=== PATIENT | male | born 1955 | race Caucasian/White ===

== ENCOUNTER 2019-09-02 19:34 | Emergency (ER) | payer OTHER, SELFPAY ==
[2019-09-02 19:48] VITALS: BP 116/62; PULSE 106; RESP 18; TEMP 36.6; O2SAT 97; BMI 26.4
--- NOTE | 2019-09-02 19:48 | ED_ITS ---
Entered by Nazanin Reyes, acting as scribe for Daniel Ramírez MD, [facility] [place] - Neuro Symptoms/Deficit General: Chief Complaint: Neuro Symptoms/Deficit Stated Complaint: possible tia Time Seen by Provider: 09/02/19 19:36 Source: EMS Mode of arrival: EMS History of Present Illness: HPI Narrative: 63 yo Male presents to ED with complaint of neuro symptoms. Per EMS, patient was found down in the floor this morning by his son. Pt has a history of TIAs. Per EMS, patient had symptoms come and go throughout the day. Per EMS, family reported that the patient seemed to get worse tonight and has been more lethargic. Pt's son states that when he tried to get the patient out of the floor this morning at 1100 the patient had lower extremity weakness and couldn't help get himself out of the floor. Pt's son states that the patient uses a walker to get around some of the time. Pt states that he is at [facility] and he doesn't know what day of the week it is. Pt's son states that the patient's legs are usually dark due to blood clots but the patient's legs aren't normally cold and they are now. Onset (ago): hour(s) Time: 11:00 Timing confirmed by: family member Location: altered History of same: Yes Quality: weak Relieving factors: none Exacerbating factors: none Context: gradual onset Associated symptoms: Reports chest pain and vomiting; Deny fevers/chills, headache(s) or nausea Treatments Prior to Arrival: none Review of Systems General: Reports: 10 or more systems reviewed and unremarkable except in HPI and below Const: Denies: fever, chills or body aches Eyes: Denies: change in vision or blurry vision ENMT: Denies: throat pain, enlarged tonsils, painful swallowing, hoarseness, mouth pain or swelling of lips/tongue Card: Reports: chest pain; Denies: palpitations, irregular heart rhythm, edema or swelling of feet/ankles Resp: Denies: shortness of breath, productive cough or non-productive cough GI: Reports: vomiting; Denies: abdominal pain or nausea : Denies: flank pain, painful urination, urinary frequency, urinary urgency or urinary hesitancy Musc: Denies: neck pain, back pain or extremity swelling Skin/Breast: Denies: rash, itching or redness Neuro: Reports: weakness in extremities, difficulty walking and frequent falls; Denies: headache or numbness in extremities Endo: Denies: excessive urination, excessive thirst or tired all the time PFSH ED PFSH: Social History Smoking and tobacco status: former smoker Physical Exam Const: COMMON NORMALS: no apparent distress, average body habitus, oriented x3, no limitations, healthy appearing, alert and well nourished HENMT: COMMON NORMALS: normocephalic, head/scalp atraumatic and moist oral mucous membranes HEAD & SCALP: normocephalic and atraumatic Eye: COMMON NORMALS: PERRL, EOMs intact bilaterally, conjunctivae normal and no scleral icterus CONJUNCTIVA: Yes conjunctivae normal PUPIL: Yes PERRL Neck/C-Spine: COMMON NORMALS: full ROM, supple, no meningeal signs, no JVD and no carotid bruits Chest: COMMONS NORMALS: inspection of chest normal and palpation of chest normal Resp: COMMON NORMALS: normal respiratory effort, no retractions, no use of accessory muscles, clear to auscultation bilaterally and percussion normal AUSCULTATION: clear to auscultation bilaterally PERCUSSION: percussion normal Cardio: COMMON NORMALS: no JVD, regular rate, regular rhythm, S1 normal heart sound, S2 normal heart sound, no gallops, no clicks, no murmurs, no rub and peripheral pulses 2+ throughout RATE: regular rate RHYTHM: regular rhythm HEART SOUNDS: S1 normal and S2 normal PERIPHERAL PULSES: pulses 2+ throughout GI: COMMON NORMALS: normal to inspection, nondistended, normoactive bowel sounds, soft to palpation, non-tender, no hepatosplenomegaly, no masses and no bruits PALPATION: Yes soft, Yes tender and Yes no hepatosplenomegaly : COMMON NORMALS: Yes no CVA tenderness BLADDER/KIDNEY EXAM: Yes no CVA tenderness Back/Pelvis: COMMON NORMALS: no CVA tenderness Extremity: COMMON NORMALS: normal to inspection, full ROM, normal capillary refill, no calf tenderness and no pedal edema Neuro: COMMON NORMALS: oriented x3 and moves all extremities SENSORIUM/ORIENTATION: Yes alert and Yes somnolent MENINGEAL SIGNS: Yes no meningeal signs Skin: COMMON NORMALS: no rashes or lesions noted, no wounds, skin turgor normal, no jaundice, no petechiae and no mottling GENERAL SKIN EXAM: no rashes or lesions noted and turgor normal Course Consultations: Consultation #1: Dr. Moulton, hospitalist at [facility] in [place]. Since she cannot explain the cause of his AMS, if his ammonia level is normal she would like for him to be transferred to the ED. If it is elevated, then she will accept him Time: 23:15 Consultation #2: Dr. Mariee, ED physician at [facility] in [place]. He kindly accepted the patient to his service. Time: 23:59 Vital Signs: Vital signs: Vital Signs Temperature 98 F 09/02/19 19:48 Pulse Rate 67 09/02/19 23:00 Respiratory Rate 14 09/02/19 23:00 Blood Pressure 149/74 09/02/19 23:00 Pulse Oximetry 97 09/02/19 23:00 MDM - Neuro Symptoms/Deficit MDM Narrative: Medical decision making narrative: 63-year-old gentleman who was brought into the emergency department with altered mental status. On arrival the patient was somnolent but was able to answer most of the questions. He was not oriented to place or time. Evaluation did not reveal any focal neuro deficits. Head CT was negative. Evaluation shows UTI, significantly elevated bilirubin, and elevated liver enzymes. Ammonia levels were normal. Ultrasound showed gallstones and a dilated common bile duct. Patient may need an ERCP. Patient is transferred to [facility] in [place] for further evaluation and management. I discussed his exam findings and lab and imaging findings with his son and the treatment options. Patient's son opted to transfer the patient to [facility] in [place]. Medical Records: Attestation: I reviewed the patient's medical records. Lab Data: Attestation: I reviewed the patient's lab results. Labs: Lab Results 09/02/19 09/02/19 09/02/19 Range/Units 20:22 20:22 20:22 WBC 10.3 H (4.0-10.0) 10^3/ uL RBC 4.87 (4.1-5.3) 10^6/u L Hgb 13.2 (11.7-16.6) g/dL Hct 42.7 (42.0-52.0) % MCV 87.7 (80-94) fL MCH 27.1 L (28.0-34.0) pg MCHC 30.9 (30.0-36.0) g/dL RDW 15.6 H (12.1-15.1) % Plt Count 78 L (130-400) 10^3/c mm MPV 10.9 H (7.4-10.4) fL Neut % (Auto) 86.4 % Lymph % (Auto) 6.0 % [place] % (Auto) 6.8 % Eos % (Auto) 0.0 % Baso % (Auto) 0.3 % Neut # (Auto) 8.9 H (1.8-7.7) 10^3/u L Lymph # (Auto) 0.6 L (0.8-4.8) 10^3/u L [place] # (Auto) 0.7 (0.2-0.9) 10^3/u L Eos # (Auto) 0.0 (0.0-0.8) 10^3/u L Baso # (Auto) 0.0 (0.0-0.1) 10^3/u L Nucleated RBC % (a uto) 0 % Nucleated RBCs # 0.0 /100WBC PT 17.00 H (10.5-13.3) SECO NDS INR 1.33 H (0.8-1.2) APTT 74.3 H (23.9-36.7) SECO NDS Sodium 140 (136-145) mmol/L Potassium 4.6 (3.5-5.1) mmol/L Chloride 103 (98-107) mmol/L Carbon Dioxide 24 (22-29) mmol/L Anion Gap 17.6 (5-19) BUN 36 H (8-23) mg/dL Creatinine 1.6 H (0.7-1.2) mg/dL GFR Calculation 43.9 L (90-130) mL/min Glucose 107 (65-115) mg/dL Lactate (0.5-2.2) mmol/L Calcium 10.1 (8.5-10.5) mg/dL Total Bilirubin 5.2 H (0.15-1.2) mg/dL AST 369 H (0-40) U/L ALT 423 H (0-41) U/L Alkaline Phosphata se 181 H (40-130) IU/L Ammonia (16-60) umol/L Troponin T Baselin e (0-15) ng/mL Troponin T 120 Min [place] (0-15) ng/mL Delta Troponin T (0-10) ABS# Total Protein 7.8 (6.6-8.7) g/dL Albumin 4.1 (3.5-5.2) g/dL Globulin 3.7 (1.3-4.6) g/dL Urine Color (Yellow) Urine Appearance (CLEAR) Urine pH (5-7) Ur Specific Gravit y (1.005-1.030) Urine Protein (Negative) Urine Glucose (UA) (Normal) Urine Ketones (Negative) Urine Blood (Negative) Urine Nitrate (Negative) Urine Bilirubin (NEGATIVE) Urine Urobilinogen (Negative) mg/dL Ur Leukocyte Maur[place] ase (Negative) Urine RBC (0-2) /hpf Urine WBC (0-5) /hpf Ur Squamous Epith Cells (0-5) Ur Transition Epit h Cell /hpf Urine Bacteria (NONE) Urine Mucus Urine Opiates Scre en (Negative) ng/mL Ur Barbiturates Sc reen (Negative) ng/mL Ur Phencyclidine S crn (Negative) ng/mL Ur Amphetamines Sc reen (Negative) ng/mL U Benzodiazepines Scrn (Negative) ng/mL Urine Cocaine Scre en (Negative) ng/mL U Marijuana (THC) Screen (Negative) ng/mL 09/02/19 09/02/19 09/02/19 Range/Units 20:22 20:22 21:40 WBC (4.0-10.0) 10^3/ uL RBC (4.1-5.3) 10^6/u L Hgb (11.7-16.6) g/dL Hct (42.0-52.0) % MCV (80-94) fL MCH (28.0-34.0) pg MCHC (30.0-36.0) g/dL RDW (12.1-15.1) % Plt Count (130-400) 10^3/c mm MPV (7.4-10.4) fL Neut % (Auto) % Lymph % (Auto) % [place] % (Auto) % Eos % (Auto) % Baso % (Auto) % Neut # (Auto) (1.8-7.7) 10^3/u L Lymph # (Auto) (0.8-4.8) 10^3/u L [place] # (Auto) (0.2-0.9) 10^3/u L Eos # (Auto) (0.0-0.8) 10^3/u L Baso # (Auto) (0.0-0.1) 10^3/u L Nucleated RBC % (a uto) % Nucleated RBCs # /100WBC PT (10.5-13.3) SECO NDS INR (0.8-1.2) APTT (23.9-36.7) SECO NDS Sodium (136-145) mmol/L Potassium (3.5-5.1) mmol/L Chloride (98-107) mmol/L Carbon Dioxide (22-29) mmol/L Anion Gap (5-19) BUN (8-23) mg/dL Creatinine (0.7-1.2) mg/dL GFR Calculation (90-130) mL/min Glucose (65-115) mg/dL Lactate 1.3 (0.5-2.2) mmol/L Calcium (8.5-10.5) mg/dL Total Bilirubin (0.15-1.2) mg/dL AST (0-40) U/L ALT (0-41) U/L Alkaline Phosphata se (40-130) IU/L Ammonia (16-60) umol/L Troponin T Baselin e 39 H (0-15) ng/mL Troponin T 120 Min [place] (0-15) ng/mL Delta Troponin T (0-10) ABS# Total Protein (6.6-8.7) g/dL Albumin (3.5-5.2) g/dL Globulin (1.3-4.6) g/dL Urine Color Dark yellow (Yellow) Urine Appearance Clear (CLEAR) Urine pH 5 (5-7) Ur Specific Gravit y 1.020 (1.005-1.030) Urine Protein Neg (Negative) Urine Glucose (UA) Norm (Normal) Urine Ketones Negative (Negative) Urine Blood 2+ H (Negative) Urine Nitrate Positive H (Negative) Urine Bilirubin 2+ H (NEGATIVE) Urine Urobilinogen 4 H (Negative) mg/dL Ur Leukocyte [place] Negative (Negative) Urine RBC 10-15 H (0-2) /hpf Urine WBC 0-4 H (0-5) /hpf Ur Squamous Epith Cells None (0-5) Ur Transition Epit h Cell 0-4 /hpf Urine Bacteria 1+ H (NONE) Urine Mucus 1+ Urine Opiates Scre en (Negative) ng/mL Ur Barbiturates Sc reen (Negative) ng/mL Ur Phencyclidine S crn (Negative) ng/mL Ur Amphetamines Sc reen (Negative) ng/mL U Benzodiazepines Scrn (Negative) ng/mL Urine Cocaine Scre en (Negative) ng/mL U Marijuana (THC) Screen (Negative) ng/mL 09/02/19 09/02/19 09/02/19 Range/Units 21:40 22:09 23:15 WBC (4.0-10.0) 10^3/ uL RBC (4.1-5.3) 10^6/u L Hgb (11.7-16.6) g/dL Hct (42.0-52.0) % MCV (80-94) fL MCH (28.0-34.0) pg MCHC (30.0-36.0) g/dL RDW (12.1-15.1) % Plt Count (130-400) 10^3/c mm MPV (7.4-10.4) fL Neut % (Auto) % Lymph % (Auto) % [place] % (Auto) % Eos % (Auto) % Baso % (Auto) % Neut # (Auto) (1.8-7.7) 10^3/u L Lymph # (Auto) (0.8-4.8) 10^3/u L [place] # (Auto) (0.2-0.9) 10^3/u L Eos # (Auto) (0.0-0.8) 10^3/u L Baso # (Auto) (0.0-0.1) 10^3/u L Nucleated RBC % (a uto) % Nucleated RBCs # /100WBC PT (10.5-13.3) SECO NDS INR (0.8-1.2) APTT (23.9-36.7) SECO NDS Sodium (136-145) mmol/L Potassium (3.5-5.1) mmol/L Chloride (98-107) mmol/L Carbon Dioxide (22-29) mmol/L Anion Gap (5-19) BUN (8-23) mg/dL Creatinine (0.7-1.2) mg/dL GFR Calculation (90-130) mL/min Glucose (65-115) mg/dL Lactate (0.5-2.2) mmol/L Calcium (8.5-10.5) mg/dL Total Bilirubin (0.15-1.2) mg/dL AST (0-40) U/L ALT (0-41) U/L Alkaline Phosphata se (40-130) IU/L Ammonia 26 (16-60) umol/L Troponin T Baselin e (0-15) ng/mL Troponin T 120 Min [place] 41.36 H (0-15) ng/mL Delta Troponin T 2.36 (0-10) ABS# Total Protein (6.6-8.7) g/dL Albumin (3.5-5.2) g/dL Globulin (1.3-4.6) g/dL Urine Color (Yellow) Urine Appearance (CLEAR) Urine pH (5-7) Ur Specific Gravit y (1.005-1.030) Urine Protein (Negative) Urine Glucose (UA) (Normal) Urine Ketones (Negative) Urine Blood (Negative) Urine Nitrate (Negative) Urine Bilirubin (NEGATIVE) Urine Urobilinogen (Negative) mg/dL Ur Leukocyte Maura ase (Negative) Urine RBC (0-2) /hpf Urine WBC (0-5) /hpf Ur Squamous Epith Cells (0-5) Ur Transition Epit h Cell /hpf Urine Bacteria (NONE) Urine Mucus Urine Opiates Scre en Negative (Negative) ng/mL Ur Barbiturates Sc reen Negative (Negative) ng/mL Ur Phencyclidine S crn Negative (Negative) ng/mL Ur Amphetamines Sc reen Negative (Negative) ng/mL U Benzodiazepines Scrn Negative (Negative) ng/mL Urine Cocaine Scre en Negative (Negative) ng/mL U Marijuana (THC) Screen Negative (Negative) ng/mL Imaging Data^: CT Head: Radiologist's impression: [address] [address] [address] Scan Report Signed Patient: Felton Burton #: [id number] : 6Acct#:[id number] Age/Sex: 63 / MADM Date: 09/02/19 Loc: ERRoom/Bed: Attending Dr: Ordering Provider/Ordering MD: Daniel Ramírez MD, [facility] [place] of Service: 09/02/19 Procedure(s): CT head wo con* [id number] Accession Number(s): [id number] Report Number: [id number] PROCEDURE INFORMATION: Exam: CT Head Without Contrast Exam date and time: 09/02/2019 8:28 PM Age: 63 years old Clinical indication: Weakness, extremity; Additional info: Symptoms of acute stroke TECHNIQUE: Imaging protocol: Computed tomography of the head without contrast. Total DLP: 879.75 mGy-cm Radiation optimization: All CT scans at this facility use at least one of these dose optimization techniques: automated exposure control; mA and/or kV adjustment per patient size (includes targeted exams where dose is matched to clinical indication); or iterative reconstruction. COMPARISON: CT head wo con* [id number] 09/01/2018 5:19 PM FINDINGS: Brain: Several small chronic infarctions are present in the cerebellum bilaterally. Mild atrophy and mild white matter chronic microvascular changes are noted. No hemorrhage or CT evidence of acute infarction is seen. Ventricles: Normal. No ventriculomegaly. Bones/joints: Unremarkable. No acute fracture. Sinuses: Mild mucosal thickening is present in the right sphenoid sinus. No fluid level. Mastoid air cells: Visualized mastoid air cells are well aerated. Soft tissues: Unremarkable. CT/CT head wo con* [id number] IMPRESSION: No acute intracranial abnormality. Radiation Dose CTDIVOL = (mGy): DLP = 879.75 (mGy-cm) Dictated By:Amos Enciso MD Signed By:Amos Enciso MDSigned Date/Time:09/02/192147 DD/ 46 EKG Data^: EKG 1: Attestation: I personally reviewed and interpreted this EKG as follows: EKG interpretation date: 09/02/19 EKG interpretation time: 20:45 Prior EKG tracings: not available for review Interpretation: sinus rhythm with first degree AV block LAD, RBBB heart rate [address] changes EKG 2: Attestation: I personally reviewed and interpreted this EKG as follows: EKG interpretation date: 09/02/19 EKG interpretation time: 22:17 Prior EKG tracings: available for review Interpretation: Unchanged from earlier today. 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
--- NOTE | 2019-09-02 20:00 | USCV_ITS ---
Micheal Felton Age: 63 Gender: M : 1955 Exam Date: 09/02/2019 20:48 Ordering Phys: Daniel Ramírez MD [facility] [place] Technologist: Donovan Rhoades Exam Location: [facility] [place] Indication: Risk Factors: Previous Vascular Surgery: RIGHT LEFT Waveform Velocity (cm/s) Velocity (cm/s) Waveform Triphasic 87.8 Iliac Prox 54.9 Monophasic Triphasic 87.0 Iliac Mid 51.5 Monophasic Triphasic 83.9 Iliac Distal 54.0 Monophasic Triphasic 87.8 AEROGRAPHER 51.5 Monophasic Triphasic 91.7 SFA Prox 54.9 Monophasic Triphasic SFA Mid Monophasic 77.7 62.6 Triphasic 57.8 SFA Dist 48.9 Monophasic Biphasic 27.6 POP 35.2 Monophasic Biphasic 41.4 RAILROAD CRANE OPERATOR 18.4 Monophasic Biphasic DPA 9.7 Monophasic 1.0 RAJEEV 0.5 FINDINGS Normal resting RAJEEV on the right side with a near normal arterial Doppler waveform. Abnormal resting RAJEEV on the left side with monophasic Doppler waveforms throughout. CONCLUSIONS 1. Features of severe peripheral artery disease, possibly involving the iliofemoral segment on the left side 2. Normal resting RAJEEV on the right side with possibly no significant arterial disease. Dr Dennis Carbajal MD [facility] (Electronically Signed) Final Date: 03 September 2019 11:25 S
--- NOTE | 2019-09-02 20:00 | ECG_ITS ---
Measurements Intervals [place] Rate: 67 P: 14 MT: 219 QRS: -61 QRSD: 133 T: -23 QT: 393 QTc: 418 SINUS RHYTHM WITH FIRST DEGREE AV BLOCK LEFT AXIS DEVIATION [QRS AXIS < -30] RIGHT BUNDLE BRANCH BLOCK [120+ ms QRS DURATION, UPRIGHT V1, 40+ ms S IN I/a I/aVL/V4/V5/V6] MODERATE T-WAVE ABNORMALITY, CONSIDER LATERAL ISCHEMIA [-0.1+ mV T WAVE IN I/ I/aVL/V5/V6] Compared to ECG 09/03/2018 06:05:37 Right bundle-branch block now present T-wave abnormality now present Possible ischemia now present Sinus bradycardia no longer present Intraventricular conduction delay no longer present Electronically Signed On 09-03-2019 14:12:11 BAR STEWARD by Chip Ni M.D. [email or web address]
--- NOTE | 2019-09-02 20:00 | CTR_ITS ---
PROCEDURE INFORMATION: Exam: CT Head Without Contrast Exam date and time: 09/02/2019 8:28 PM Age: 63 years old Clinical indication: Weakness, extremity; Additional info: Symptoms of acute stroke TECHNIQUE: Imaging protocol: Computed tomography of the head without contrast. Total DLP: 879.75 mGy-cm Radiation optimization: All CT scans at this facility use at least one of these dose optimization techniques: automated exposure control; mA and/or kV adjustment per patient size (includes targeted exams where dose is matched to clinical indication); or iterative reconstruction. COMPARISON: CT head wo con* [id number] 09/01/2018 5:19 PM FINDINGS: Brain: Several small chronic infarctions are present in the cerebellum bilaterally. Mild atrophy and mild white matter chronic microvascular changes are noted. No hemorrhage or CT evidence of acute infarction is seen. Ventricles: Normal. No ventriculomegaly. Bones/joints: Unremarkable. No acute fracture. Sinuses: Mild mucosal thickening is present in the right sphenoid sinus. No fluid level. Mastoid air cells: Visualized mastoid air cells are well aerated. Soft tissues: Unremarkable. CT/CT head wo con* [id number] IMPRESSION: No acute intracranial abnormality. Radiation Dose CTDIVOL = (mGy): DLP = 879.75 (mGy-cm)
[2019-09-02 20:35] LABS: Basophils % 0.3 %; Hematocrit 42.7 % (42.0-52.0); Hemoglobin 13.2 g/dL (11.7-16.6); Lymphocytes # 0.6 10^3/uL (0.8-4.8); Mean Corpuscular HGB Conc 30.9 g/dL (30.0-36.0); Mean Corpuscular Hemoglobin 27.1 pg (28.0-34.0); Mean Corpuscular Volume 87.7 fL (80-94); Mean Platelet Volume 10.9 fL (7.4-10.4); Monocytes # 0.7 10^3/uL (0.2-0.9); Monocytes % 6.8 %; Neutrophils # 8.9 10^3/uL (1.8-7.7); Neutrophils % 86.4 %; Nucleated Red Blood Cells % 0 %; Platelet Count 78 10^3/cmm (130-400); Red Blood Count 4.87 10^6/uL (4.1-5.3); Red Cell Distribution Width 15.6 % (12.1-15.1); White Blood Count 10.3 10^3/uL (4.0-10.0)
[2019-09-02 20:51] LABS: Lactate (Lactic Acid level) 1.3 mmol/L (0.5-2.2)
[2019-09-02 20:52] LABS: INR 1.33 (0.8-1.2)
[2019-09-02 20:53] LABS: Troponin(5th) Baseline 39 ng/mL (0-15)
[2019-09-02 20:54] LABS: Alanine Aminotransferase 423 U/L (0-41); Albumin Level 4.1 g/dL (3.5-5.2); Alkaline Phosphatase 181 IU/L (40-130); Anion Gap 17.6 (5-19); Aspartate Amino Transferase 369 U/L (0-40); Blood Urea Nitrogen 36 mg/dL (8-23); Calcium 10.1 mg/dL (8.5-10.5); Carbon Dioxide 24 mmol/L (22-29); Chloride 103 mmol/L (98-107); Globulin 3.7 g/dL (1.3-4.6); Glomerular Filtration Rate 43.9 mL/min (90-130); Glucose 107 mg/dL (65-115); Potassium 4.6 mmol/L (3.5-5.1); Sodium 140 mmol/L (136-145); Total Bilirubin 5.2 mg/dL (0.15-1.2); Total Protein 7.8 g/dL (6.6-8.7)
[2019-09-02 20:59] LABS: Partial Thromboplastin Time 74.3 SECONDS (23.9-36.7)
[2019-09-02 21:04] VITALS: BP 160/75; PULSE 83; O2SAT 97
--- NOTE | 2019-09-02 21:27 | US_ITS ---
WS: [id number] ABDOMINAL ULTRASOUND LIMITED REASON FOR VISIT: elevated liver enzyme TECHNIQUE: Grayscale and Doppler ultrasound examination of the abdomen. FINDINGS: Pancreas: Not well seen due to overriding gas. Abdominal aorta and IVC: Within normal limits. Liver: Liver measures 13.4 cm in length. Diffuse fatty infiltration of the liver. Gallbladder: Gallbladder wall thickness measures 1.7 mm. A large stone is seen in the gallbladder holly sured 1.2 cm. Smaller stones are also noted. The common bile duct is dilated 1.04 cm. No definite sto darrius in the were noted. Right kidney: Right kidney measures 10.4 cm x 5.5 cm x 4.8 cm. Right kidney cortex measures 1.39 cm no hydronephrosis no stones noted in the kidney. The cyst measures 3.06 x 3.11 cm noted in the right kidney. US/US gall bladder [id number] IMPRESSION: Fatty infiltration of the liver. Cholelithiasis. Dilated common bile duct. Cyst of the right kidney
[2019-09-02 21:59] LABS: Urine Appearance Clear (CLEAR); Urine Color Dark Yellow (Yellow)
[2019-09-02 22:00] LABS: Add Urine Microscopic? YES; Bilirubin Urine 2+ (NEGATIVE); Blood Urine 2+ (Negative); Glucose Urine UA Norm (Normal); Ketones Urine Negative (Negative); Leukocyte Esterase Urine Negative (Negative); Nitrate Urine Positive (Negative); Protein Urine Neg (Negative); Urobilinogen Urine 4 mg/dL (Negative); pH Urine 5 (5-7)
[2019-09-02 22:01] LABS: Amphetamines Screen Urine Negative (Negative); Barbiturates Screen Urine Negative (Negative); Benzodiazepines Screen Urine Negative (Negative); Cocaine Screen Urine Negative (Negative); Opiate Screen Urine Negative (Negative); PCP Screen Urine Negative (Negative); THC Screen Urine Negative (Negative)
--- NOTE | 2019-09-02 22:02 | ECG_ITS ---
Measurements Intervals [place] Rate: 65 P: 4 ID: 210 QRS: -63 QRSD: 133 T: -26 QT: 403 QTc: 421 SINUS RHYTHM WITH FIRST DEGREE AV BLOCK MARKED LEFT AXIS DEVIATION [QRS AXIS < -30] RIGHT BUNDLE BRANCH BLOCK [120+ ms QRS DURATION, UPRIGHT V1, 40+ ms S IN I/aVL/V4 I/aVL/V4/V5/V6] MODERATE T-WAVE ABNORMALITY, CONSIDER LATERAL ISCHEMIA [-0.1+ mV T WAVE IN I/aVL/V I/aVL/V5/V6] Compared to ECG 09/03/2018 06:05:37 Right bundle-branch block now present T-wave abnormality now present Possible ischemia now present Sinus bradycardia no longer present Intraventricular conduction delay no longer present Electronically Signed On 09-03-2019 14:14:53 BEARING PRESS MACHINE OPERATOR by Chip Ni M.D. [email or web address]
[2019-09-02 22:05] LABS: Add Urine Culture? Yes; Bacteria Urine 1+; Mucus Urine 1+; Transitional Epi Cells Urine 0-4 /hpf; WBC Urine 0-4 /hpf (0-5)
--- NOTE | 2019-09-02 22:21 | PC.NURSE ---
EKG done at 2216 and shown to ER doctor
[2019-09-02] MEDS: piperacillin-tazobactam 3.375 GM in sodium chloride 0.9% (plus) 50 ML IV (22:58)
[2019-09-02 23:00] VITALS: BP 149/74; PULSE 65; PULSE 67; RESP 14; RESP 16; O2SAT 97
[2019-09-02 23:22] LABS: Troponin 5 2HR 41.36 ng/mL (0-15); Troponin 5 2HR Delta 2.36 ABS# (0-10)
[2019-09-02 23:52] LABS: Ammonia 26 umol/L (16-60)
[2019-09-03] VITALS: BP 124/73; PULSE 67; RESP 18; O2SAT 96
[2019-09-03 01:00] VITALS: BP 132/67; PULSE 68; RESP 18; O2SAT 97
[2019-09-03 02:00] VITALS: BP 119/73; PULSE 68; RESP 18; O2SAT 96
[2019-09-03 03:37] LABS: Hepatitis A Antibody IgM. Non-Reactive (Nonreactive); Hepatitis B Surface AB. 3.5 (0-8.5); Hepatitis B Surface Antigen. Non-Reactive (Nonreactive); Hepatitis C Virus Antibody Non-Reactive (Nonreactive)
== END 2019-09-03 02:30 | disposition short-term general hospital (02) ==
PROVIDERS: Emergency Provider Family Medicine; Family Provider Internal Medicine; PCP Internal Medicine
DX: R74.8 Abnormal levels of other serum enzymes (principal); E80.6 Other disorders of bilirubin metabolism; R41.82 Altered mental status, unspecified; K80.20 Calculus of gallbladder without cholecystitis without obstruction; K83.8 Other specified diseases of biliary tract; N39.0 Urinary tract infection, site not specified; Z87.891 Personal history of nicotine dependence
CPT/HCPCS: 70450; 76705; 80053; 80307; 81001; 82140; 83605; 84484; 85025; 85610; 85730; 86705; 86706; 86709; 86803; 87077; 87086; 87186; 87340; 93005; 93925; 96365; 99284; 99285; J2543

== ENCOUNTER 2019-10-27 13:53 | Emergency (ER) | payer MEDICARE, OTHER, SELFPAY ==
[2019-10-27 13:55] VITALS: BP 119/76; PULSE 91; RESP 18; TEMP 36.3; O2SAT 93; BMI 19.8
--- NOTE | 2019-10-27 14:10 | W.ED.ABDPA2 ---
HPI - Abdominal Pain General: Chief Complaint: Abdominal Pain Stated Complaint: N/V BLACK EMESIS Time Seen by Provider: 10/27/19 14:01 History of Present Illness: HPI narrative: 63-year-old male presents to the ER via EMS. Has a complaint of persistent nausea and vomiting. He has a PEG tube in not sure of the reasoning for that he is not able to tell me and I do not see it because it is an immediate review of his records. He denies fever he does admit to the episodes of vomiting denies diarrhea denies hematemesis coffee-ground emesis hematochezia. Denies any shortness of breath or chest pain. MD elicited complaint: abdominal pain Pain Consistency: intermittent Location: None Radiation: none Associated Symptoms: Reports change in stool character and coffee ground emesis; Denies chills, fever(s), hematochezia, hematuria and nausea Review of Systems Const: Denies: fever, chills, body aches, change in appetite, fatigue or malaise ENMT: Denies: throat pain, ear pain, nasal discharge or nasal congestion Card: Denies: chest pain, edema, shortness of breath on exertion or shortness of breath when lying down Resp: Denies: shortness of breath, productive cough or non-productive cough GI: Reports: coffee grounds in vomit and change in stool character; Denies: nausea or blood in stool : Denies: blood in urine Skin/Breast: Denies: rash or itching [facility] ED PFSH: Social History Smoking and tobacco status: never smoked Physical Exam Const: COMMON NORMALS: no apparent distress GENERAL APPEARANCE: cooperative and comfortable HENMT: COMMON NORMALS: normocephalic, head/scalp atraumatic, hearing grossly normal bilaterally, external ears normal, EAC's normal, TM's normal bilaterally, nasal mucous membranes and turbinates normal, moist oral mucous membranes and oropharynx normal HEAD & SCALP: normocephalic and atraumatic NOSE: nasal mucous membranes and turbinates normal EXTERNAL EAR: Yes external ears normal EXTERNAL AUDITORY CANAL: EAC's normal TYMPANIC MEMBRANE: TM's normal bilaterally Eye: COMMON NORMALS: PERRL, EOMs intact bilaterally, conjunctivae normal and no scleral icterus CONJUNCTIVA: Yes conjunctivae normal PUPIL: Yes PERRL Neck/C-Spine: COMMON NORMALS: full ROM, no lymphadenopathy, supple and no JVD Lymph: LYMPHATIC: no lymphadenopathy noted and no lymphedema noted Resp: COMMON NORMALS: normal respiratory effort, no retractions, no use of accessory muscles and clear to auscultation bilaterally AUSCULTATION: clear to auscultation bilaterally Cardio: COMMON NORMALS: no JVD, regular rate, regular rhythm and no murmurs RATE: regular rate RHYTHM: regular rhythm GI: COMMON NORMALS: soft to palpation and no hepatosplenomegaly AUSCULTATION: Yes normoactive bowel sounds PALPATION: Yes soft, No tender, No guarding and Yes no hepatosplenomegaly Extremity: COMMON NORMALS: normal to inspection, normal capillary refill, no clubbing, cyanosis or edema, no calf tenderness and no pedal edema Skin: COMMON NORMALS: no rashes or lesions noted GENERAL SKIN EXAM: no rashes or lesions noted Course Vital Signs: Vital signs: Vital Signs Temperature 97.8 F 10/27/19 17: Pulse Rate 68 10/27/19 17:17 Respiratory Rate 18 10/27/19 17:17 Blood Pressure 160/68 10/27/19 17:17 Pulse Oximetry 98 10/27/19 17:17 MDM - Abdominal Pain MDM Narrative: Medical decision making narrative: After fluids and antiemetics he is feeling better. He is not had any further vomiting. Recommend resuming use of the PEG tube and not having any p.o. intake Zofran as needed follow-up with her primary care can reevaluate p.o. intake at a later date possibly with swallowing test if deemed appropriate. Lab Data: Labs: Lab Results 10/27/19 10/27/19 10/27/19 Range/Units 13:57 13:57 15:08 WBC 11.9 H (4.0-10.0) 10^3/ uL RBC 5.07 (4.1-5.3) 10^6/u L Hgb 14.7 (11.7-16.6) g/dL Hct 46.1 (42.0-52.0) % MCV 90.9 (80-94) fL MCH 29.0 (28.0-34.0) pg MCHC 31.9 (30.0-36.0) g/dL RDW 16.0 H (12.1-15.1) % Plt Count 55 L (130-400) 10^3/c mm MPV 12.1 H (7.4-10.4) fL Neut % (Auto) 89.6 % Lymph % (Auto) 3.5 % [place] % (Auto) 6.0 % Eos % (Auto) 0.2 % Baso % (Auto) 0.3 % Neut # (Auto) 10.7 H (1.8-7.7) 10^3/u L Lymph # (Auto) 0.4 L (0.8-4.8) 10^3/u L [place] # (Auto) 0.7 (0.2-0.9) 10^3/u L Eos # (Auto) 0.0 (0.0-0.8) 10^3/u L Baso # (Auto) 0.0 (0.0-0.1) 10^3/u L Nucleated RBC % (a uto) 0 % Nucleated RBCs # 0.0 /100WBC Sodium 144 (136-145) mmol/L Potassium 4.4 (3.5-5.1) mmol/L Chloride 104 (98-107) mmol/L Carbon Dioxide 24 (22-29) mmol/L Anion Gap 20.4 H (5-19) BUN 32 H (8-23) mg/dL Creatinine 1.5 H (0.7-1.2) mg/dL GFR Calculation 47.3 L (90-130) mL/min Glucose 103 (65-115) mg/dL Calculated Osmolal ity 295 (285-295) mOsm/k g Calcium 10.8 H (8.5-10.5) mg/dL Total Bilirubin 1.1 (0.15-1.2) mg/dL AST 46 H (0-40) U/L ALT 44 H (0-41) U/L Alkaline Phosphata se 75 (40-130) IU/L Total Protein 8.0 (6.6-8.7) g/dL Albumin 4.4 (3.5-5.2) g/dL Globulin 3.6 (1.3-4.6) g/dL Urine Color Linda (Yellow) Urine Appearance Clear (CLEAR) Urine pH 5 (5-7) Ur Specific Gravit y 1.015 (1.005-1.030) Urine Protein Neg (Negative) Urine Glucose (UA) Norm (Normal) Urine Ketones Negative (Negative) Urine Blood Neg (Negative) Urine Nitrate Negative (Negative) Urine Bilirubin Neg (NEGATIVE) Urine Urobilinogen Norm (Negative) mg/dL Ur Leukocyte Maura ase Negative (Negative) Discharge Plan Discharge Patient Disposition: Home, Self-Care Clinical Impression: Nausea & vomiting Condition: Stable Prescriptions: No Action docusate sodium 50 mg/5 mL Liquid 100 mg PO BID RF: 0 Zofran 4 mg Tablet 4 mg PO Q6H PRN (Reason: Nausea) RF: 0 mirtazapine 7.5 mg Tablet 7.5 mg PO DAILY RF: 0 Eliquis 5 mg Tablet 5 mg PO BID RF: 0 Referrals: Kei Silva [Primary Care Provider] - Discharge Diet: As Directed Discharge Activity: Resume usual activity Activity Restrictions/Additional Instructions: We recommend using only the PEG tube for now. No intake p.o. Use Zofran as needed. Follow-up with primary care within the next 4 to 5 days or sooner. 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
--- NOTE | 2019-10-27 14:14 | ECG_ITS ---
Measurements Intervals [place] Rate: 73 P: 5 VT: 216 QRS: -61 QRSD: 129 T: -29 QT: 383 QTc: 425 SINUS RHYTHM WITH SINUS ARRHYTHMIA WITH FIRST DEGREE AV BLOCK LEFT ANTERIOR FASCICULAR BLOCK [QRS AXIS <= -45, QR IN I, RS IN II] Compared to ECG 09/02/2019 22:17:16 Left anterior fascicular block now present Left-axis deviation no longer present Right bundle-branch block no longer present T-wave abnormality no longer present Possible ischemia no longer present Electronically Signed On 10-27-2019 19:06:58 CDT by Trav Burnette M.D. [id number] [place]
--- NOTE | 2019-10-27 14:25 | PC.NURSE ---
Spoke with [facility] in [facility]. Spoke to Kassandra the pt's nurse. She reports pt has feeding tube due to gallbladder issues, he has been on a puree diet, however, was placed on regular diet this morning eating regular food for the first time this morning around 7 am. Pt began Having nausea and vomiting around 11 am, the nurse noticed dark colored fluid in emesis. MD notified of report.
[2019-10-27 14:33] LABS: Basophils % 0.3 %; Eosinophils % 0.2 %; Hematocrit 46.1 % (42.0-52.0); Hemoglobin 14.7 g/dL (11.7-16.6); Lymphocytes # 0.4 10^3/uL (0.8-4.8); Lymphocytes % 3.5 %; Mean Corpuscular HGB Conc 31.9 g/dL (30.0-36.0); Mean Corpuscular Volume 90.9 fL (80-94); Mean Platelet Volume 12.1 fL (7.4-10.4); Monocytes # 0.7 10^3/uL (0.2-0.9); Neutrophils # 10.7 10^3/uL (1.8-7.7); Neutrophils % 89.6 %; Nucleated Red Blood Cells % 0 %; Platelet Count 55 10^3/cmm (130-400); Red Blood Count 5.07 10^6/uL (4.1-5.3); White Blood Count 11.9 10^3/uL (4.0-10.0)
[2019-10-27 14:55] LABS: Alanine Aminotransferase 44 U/L (0-41); Albumin Level 4.4 g/dL (3.5-5.2); Alkaline Phosphatase 75 IU/L (40-130); Anion Gap 20.4 (5-19); Aspartate Amino Transferase 46 U/L (0-40); Blood Urea Nitrogen 32 mg/dL (8-23); Calcium 10.8 mg/dL (8.5-10.5); Carbon Dioxide 24 mmol/L (22-29); Chloride 104 mmol/L (98-107); Globulin 3.6 g/dL (1.3-4.6); Glomerular Filtration Rate 47.3 mL/min (90-130); Glucose 103 mg/dL (65-115); Osmolality Calculated 295 mOsm/kg (285-295); Potassium 4.4 mmol/L (3.5-5.1); Sodium 144 mmol/L (136-145); Total Bilirubin 1.1 mg/dL (0.15-1.2)
[2019-10-27] MEDS: sodium chloride 0.9% 1,000 ML 999 ML IV (14:58)
[2019-10-27] MEDS: ondansetron 2 mg/ML SDV 2 mL 4 MG IVP (14:58)
[2019-10-27 15:12] VITALS: BP 119/72; PULSE 72; RESP 18; O2SAT 94
[2019-10-27 15:23] LABS: Add Urine Microscopic? NO
[2019-10-27 15:32] LABS: Bilirubin Urine Neg (NEGATIVE); Blood Urine Neg (Negative); Glucose Urine UA Norm (Normal); Ketones Urine Negative (Negative); Leukocyte Esterase Urine Negative (Negative); Nitrate Urine Negative (Negative); Protein Urine Neg (Negative); Specific Gravity, Urine 1.015 (1.005-1.030); Urine Appearance Clear (CLEAR); Urine Color Amber (Yellow); Urobilinogen Urine Norm (Negative); pH Urine 5 (5-7)
--- NOTE | 2019-10-27 15:37 | PC.NURSE ---
Pt unable to supply a stool sample at this time. Will continue to encourage.
[2019-10-27 17:17] VITALS: BP 160/68; PULSE 68; RESP 18; TEMP 36.6; O2SAT 98
== END 2019-10-27 17:20 | disposition home or self-care (01) ==
PROVIDERS: Emergency Provider Family Medicine; Family Provider Internal Medicine; PCP Internal Medicine
DX: R11.2 Nausea with vomiting, unspecified (principal); Z93.1 Gastrostomy status; I44.0 Atrioventricular block, first degree
CPT/HCPCS: 12345; 80053; 81003; 85025; 93005; 96360; 96374; 99283; A9270; J2405; J7030

== ENCOUNTER 2019-11-10 11:09 | Outpatient (CLI) | payer OTHER, SELFPAY ==
--- NOTE | 2019-11-10 11:26 | FL_ITS ---
WS: [id number] MODIFIED BARIUM SWALLOW HISTORY: Other dysphagia FLUOROSCOPY TIME: 1.3 minutes. Modified barium swallow was performed by the speech pathologist. Fluoroscopy was provided with the pa tient in a lateral projection. Multiple food consistencies were provided. Patient swallowed all food consistencies without difficulty. No aspiration or penetration. Barium tab let was swallowed without difficulty. FL/FL barium swallow modifd [id number] IMPRESSION: No swallowing difficulties evident. Please see speech therapist report also for recommendations.
== END 2019-11-10 11:10 | disposition home or self-care (01) ==
PROVIDERS: Family Provider Internal Medicine; PCP Internal Medicine; Visit Provider Family Medicine
DX: R13.19 Other dysphagia (principal)
CPT/HCPCS: 74230; 92611

== ENCOUNTER 2020-06-04 14:31 | Inpatient (IN) | payer OTHER, MEDICARE, SELFPAY ==
[2020-06-04] VITALS (16 sets, daily range): BP systolic 87–195; BP diastolic 57–167; PULSE 90–137; RESP 16–25; TEMP 36.4–36.6; O2SAT 89–96; BMI 31.2
--- NOTE | 2020-06-04 14:31 | PC.NURSE ---
Patient to room 15. Patient covered in dried black/brown vomit. The patient's face was trimmed to aid with vomit removal. EMD would like to intubate the patient. Patient moved to room 10. Following intubation and multiple IV placement, report was given to primary nurse. She will assume care.
--- NOTE | 2020-06-04 14:45 | XRR_ITS ---
PROCEDURE INFORMATION: Exam: XR Chest, 1 View Exam date and time: 06/04/2020 2:57 PM Age: 64 years old Clinical indication: Dyspnea TECHNIQUE: Imaging protocol: XR of the chest Views: 1 view. COMPARISON: CR Chest 2 views* [id number] 09/01/2018 4:36 PM FINDINGS: Lungs: Multifocal asymmetric bilateral airspace opacities are identified greatest in the right upper lobe and medial left lower lobe concerning for pneumonic infiltrates. Pulmonary vascularity is slightly increased compared to prior exam and appears may be a component of mild interstitial CHF. Pleural space: Unremarkable. No pleural effusion. No pneumothorax. Heart/Mediastinum: The heart is enlarged. Bones/joints: No acute abnormality. XR/XR chest 1V portable [id number] IMPRESSION: 1. Multifocal asymmetric bilateral airspace opacities are identified greatest in the right upper lobe and medial left lower lobe concerning for pneumonic infiltrates. 2. Probable mild CHF is also identified.
--- NOTE | 2020-06-04 14:47 | ECG_ITS ---
[facility] Test Date: 2020-06-04 Pat Name: Felton Burton Department: Room: ICU08 Gender: Male Block Feeder: : 1955 Requested By: Brenda Livingston Order Number: [id number] Jesse MD: Fabio Becerra M.D. Measurements Intervals [place] Rate: 94 P: 60 DC: 216 QRS: -68 QRSD: 125 T: -14 QT: 325 QTc: 407 Interpretive Statements SINUS RHYTHM WITH FIRST DEGREE AV BLOCK WITH OCCASIONAL VENTRICULAR PREMATURE COMPLEXES INFERIOR MYOCARDIAL INFARCTION , OF INDETERMINATE AGE [40+ ms Q WAVE AND/OR ST/T ABNORMALITY IN II/aVF] INTERPRETATION BASED ON A DEFAULT AGE OF 40 YEARS Compared to ECG 10/27/2019 14:45:13 Myocardial infarct finding now present Sinus arrhythmia no longer present Left anterior fascicular block no longer present Electronically Signed On 06-04-2020 18:40:18 [employer] by Fabio eBcerra M.D. [id number] f
--- NOTE | 2020-06-04 14:47 | CTR_ITS ---
PROCEDURE INFORMATION: Exam: CT Head Without Contrast Exam date and time: 06/04/2020 3:58 PM Age: 64 years old Clinical indication: Coma or unconsciousness; Patient HX: PT was found down at home w dried vomit on face; Additional info: Altered mental status TECHNIQUE: Imaging protocol: Computed tomography of the head without contrast. Radiation optimization: All CT scans at this facility use at least one of these dose optimization techniques: automated exposure control; mA and/or kV adjustment per patient size (includes targeted exams where dose is matched to clinical indication); or iterative reconstruction. COMPARISON: CT head wo con* [id number] 09/02/2019 9:16 PM RADIATION DOSE METRICS: Total DLP (mGy-cm): 844.12 FINDINGS: Brain: There is volume loss and periventricular low density compatible with chronic small vessel disease changes. There is no acute hemorrhage, edema or mass effect. Cerebral ventricles: The ventricular size is prominent but unchanged and compatible with ex vacuo type changes. Bones/joints: Unchanged old fractures of the nasal bones and nasal septum are noted. No acute fractures identified. The pterygoids are intact. Paranasal sinuses: Visualized sinuses are unremarkable. No fluid levels. Mastoid air cells: Visualized mastoid air cells are well aerated. Soft tissues: There is a trace amount of subcutaneous emphysema adjacent to the right pterygoid bones but there is no adjacent fluid collection or soft tissue edema. Nasal cavity: There are air-fluid levels in the nasal cavity, sphenoid and ethmoidal air cells. CT/CT head wo con* [id number] IMPRESSION: 1. No acute intracranial abnormality. 2. There are air-fluid levels in the nasal cavity, sphenoid and ethmoidal air cells. 3. There is a trace amount of subcutaneous emphysema adjacent to the right pterygoid bones but there is no adjacent fluid collection or soft tissue edema. The pterygoids are intact. Radiation Dose CTDIVOL = (mGy): DLP = 844.12 (mGy-cm)
--- NOTE | 2020-06-04 14:51 | ED_ITS ---
HPI - General Adult General: Chief complaint: Altered Mental Status Stated complaint: AMS Time Seen by Provider: 06/04/20 14:45 Source: patient and EMS Mode of arrival: EMS Limitations: physical limitation (Respiratory distress) History of Present Illness: HPI narrative: Patient is brought from home by EMS. Patient is difficult historian secondary to his respiratory distress. EMS reports the patient was found today with black tarry emesis on his chest and abdomen. EMS did not give report of vital signs in route. Patient does have a history of blood clots and is on blood thinners. Upon initial assessment by me the patient appears to be critically ill with respiratory distress. Efforts were initiated toward resuscitation and stabilization as further history was unobtainable from the patient. All further records were taken from old charts. 1600 -patient's is called to check on him. She states she was with him last night. He states he was not feeling good but decided to stay up later than her and told her not to bother him until approximately noon today. She states that at dinner he got choked on some Pepsi and feels like he may have aspirated it. He did get gag and throw up and threw up what she thought was chocolate ice cream. The patient went to bed after her but she thought he was okay after the one episode. Then this afternoon when she went to wake him up she noticed he was very altered and was covered in emesis which appeared to be more chocolate ice cream. She states the patient just did not act himself and she could tell he was having difficulty breathing so she called the paramedics to get him evaluated. He states that he has a history of a clotting disorder and is currently on Coumadin. Review of Systems General: Reports: ROS unobtainable due to medical condition [facility] ED 2 PFSH: Medical History Antiphospholipid antibody syndrome Chronic anticoagulation Critical limb ischemia with history of revascularization of same extremity Dementia Depression DVT (deep venous thrombosis) History of ITP Hyperlipidemia Pulmonary embolism Social History Smoking and tobacco status: never smoked Physical Exam Const: EXAM LIMITATIONS: altered mental status GENERAL APPEARANCE: in distress and lethargic ORIENTATION/CONSCIOUSNESS: Yes lethargic HENMT: COMMON NORMALS: normocephalic, atraumatic, external ears normal, EAC's normal and Normal external nose present HEAD & SCALP: normal to inspection, normocephalic and atraumatic FACE & SINUS: normal facial exam and face s ymmetric NOSE: Normal external nose present and Normal nares present EXTERNAL EAR: Yes external ears normal EXTERNAL AUDITORY CANAL: EAC's normal MOUTH: other (Dried emesis, black in color within mouth) Eye: COMMON NORMALS: Equal, round and reactive pupils present and conjunctivae normal GENERAL EYE: appearance normal, both eyes and all related structures ALIGNMENT: Yes alignment normal PERIORBITAL: periorbital findings normal EYELID: eyelids normal CONJUNCTIVA: Yes conjunctivae normal SCLERA: sclerae normal PUPIL: Yes Equal, round and reactive pupils present Neck/C-Spine: COMMON NORMALS: full ROM, no lymphadenopathy, supple, no meningeal signs and no JVD GENERAL: Yes normal visual inspection and Yes trachea midline Chest: COMMONS NORMALS: normal inspection of the chest and normal palpation of entire chest wall Resp: EFFORT & INSPECTION: Yes symmetric chest movement, Yes respiratory distress, Yes labored, Yes uses accessory muscles and Yes paradoxical thoraco- abdominal movements AUSCULTATION: rhonchi Cardio: COMMON NORMALS: no JVD, regular rhythm, S1 normal heart sound present and S2 normal heart sound present RATE: tachycardic RHYTHM: regular rhythm HEART SOUNDS: S1 normal heart sound present, S2 normal heart sound present, no click, no gallops, no murmurs and no rubs GI: COMMON NORMALS: No hepatosplenomegaly present PALPATION: Yes Tenderness to palpation present (GI) (Water to severe diffusely), Yes No hepatosplenomegaly present and No Pulsatile mass present RECTAL EXAM: Yes other (Light brown stool from rectum) : COMMON NORMALS: Yes no CVA tenderness BLADDER/KIDNEY EXAM: Yes no CVA tenderness Back/Pelvis: COMMON NORMALS: no CVA tenderness, thoracic and lumbar spine normal to inspection, no thoracic nor lumbar tenderness and thoraco-lumbar ROM normal Extremity: COMMON NORMALS: capillary refill normal, no joint enlargement and no clubbing, cyanosis or edema Neuro: COMMON NORMALS: CN's II-XII intact bilaterally, moves all extremities, no focal motor deficits and no sensory deficits noted SENSORIUM/ORIENTATION: Yes lethargic MENINGEAL SIGNS: Yes no meningeal signs Procedures Intubation Time out performed: Yes sedative: Etomidate Mg Given: 30 paralytic: Succinylcholine Mg Given: 175 Laryngoscope: fiber optic video scope ET Tube Size: 8 ET Tube Uncuffed: Yes Tube Secured Depth (cm): 24 Tube Secured Location: lips Tube Placement Confirmation: visualized tube passing through cords Patient Tolerated Procedure: well and no complications Intubation Complications: none Course Vital Signs: Vital signs: Vital Signs Temperature 97.6 F 06/04/20 14:51 Pulse Rate 98 06/04/20 14:51 Respiratory Rate 24 H 06/04/20 17:11 Blood Pressure 195/167 06/04/20 14:51 Pulse Oximetry 90 06/04/20 17:11 MDM - General Adult MDM Narrative: Medical decision making narrative: Mr. Bowen is a 64-year-old male who comes in altered, in respiratory distress with apparent aspiration pneumonia. It appears as though he could have had a GI bleed but his H&H are stable. Currently the patient is off pressors and with just fluids is maintaining his blood pressure with fentanyl and propofol for sedation. The patient is likely septic from aspiration pneumonia and a GI bleed appears less likely. Nonetheless we will watch the patient constantly as he is on Coumadin but we will not reverse this at this time. His guaiac was light brown stool without any evidence of melena. His does state that he has been eating a large amount of chocolate ice cream although this would be atypical as what was seen on his face looked like coffee-ground emesis. Dr. Romo is aware of the consult Dr. August will admit to the ICU. Lab Data: Attestation: I reviewed the patient's lab results. Labs: Lab Results 06/04/20 06/04/20 06/04/20 Range/Units 15:25 15:25 15:25 WBC 7.8 (4.0-10.0) 10^3/ uL RBC 4.81 (4.1-5.3) 10^6/u L Hgb 13.7 (11.7-16.6) g/dL Hct 44.5 (42.0-52.0) % MCV 92.5 (80-94) fL MCH 28.5 (28.0-34.0) pg MCHC 30.8 (30.0-36.0) g/dL RDW 14.9 (12.1-15.1) % Plt Count 74 L (130-400) 10^3/c mm MPV 12.3 H (7.4-10.4) fL Neut % (Auto) 86.0 % Lymph % (Auto) 5.7 % Ford % (Auto) 7.9 % Eos % (Auto) 0.0 % Baso % (Auto) 0.3 % Neut # (Auto) 6.69 (1.8-7.7) 10^3/u L Lymph # (Auto) 0.4 L (0.8-4.8) 10^3/u L Ford # (Auto) 0.6 (0.2-0.9) 10^3/u L Eos # (Auto) 0.0 (0.0-0.8) 10^3/u L Baso # (Auto) 0.0 (0.0-0.1) 10^3/u L Nucleated RBC % (a uto) 0 % Nucleated RBCs # 0.0 /100WBC PT 30.40 H (12.1-14.9) SECO NDS INR 2.78 H (0.8-1.2) APTT 65.2 H (23.9-36.7) SECO NDS Specimen Type Sample Site ABG pH (7.35-7.45) ABG pCO2 (35-45) mmHg ABG pO2 (80.0-100.0) mmH g ABG HCO3 (22-26) mmol/L ABG Base Excess (-2.0-2.0) mmol/ L Edwin Test Hematocrit (42-52) % O2 Delivery Device FiO2 % Tidal Volume PEEP cmH20 Technical Report Writer ID Blood Gas Notified Time Sodium 145 (136-145) mmol/L Potassium 4.2 (3.5-5.1) mmol/L Chloride 107 (98-107) mmol/L Carbon Dioxide 24 (22-29) mmol/L Anion Gap 18.2 (5-19) BUN 26 H (8-23) mg/dL Creatinine 1.9 H (0.7-1.2) mg/dL GFR Calculation 35.9 L (90-130) mL/min Glucose 92 (65-115) mg/dL Calculated Osmolal ity 304 H (285-295) mOsm/k g Lactic Acid (0.5-2.2) mmol/L Calcium 8.1 L (8.5-10.5) mg/dL Magnesium 1.6 L (1.7-2.3) mg/dL Total Bilirubin 1.2 (0.15-1.2) mg/dL AST 21 (0-40) U/L ALT 11 (0-41) U/L Alkaline Phosphata se 57 (40-130) IU/L Creatine Kinase 188 (39-308) U/L Troponin T Baselin e (0-15) ng/L Total Protein 5.3 L (6.6-8.7) g/dL Albumin 3.4 L (3.5-5.2) g/dL Globulin 1.9 (1.3-4.6) g/dL Lipase 7 L (13-60) U/L Ethyl Alcohol < 10 (0-10) mg/dL Serum Ketones Negative (Negative) Blood Type Rho(D) Type Antibody Screen Crossmatch 06/04/20 06/04/20 06/04/20 Range/Units 15:25 15:25 15:55 WBC (4.0-10.0) 10^3/ uL RBC (4.1-5.3) 10^6/u L Hgb (11.7-16.6) g/dL Hct (42.0-52.0) % MCV (80-94) fL MCH (28.0-34.0) pg MCHC (30.0-36.0) g/dL RDW (12.1-15.1) % Plt Count (130-400) 10^3/c mm MPV (7.4-10.4) fL Neut % (Auto) % Lymph % (Auto) % Ford % (Auto) % Eos % (Auto) % Baso % (Auto) % Neut # (Auto) (1.8-7.7) 10^3/u L Lymph # (Auto) (0.8-4.8) 10^3/u L Ford # (Auto) (0.2-0.9) 10^3/u L Eos # (Auto) (0.0-0.8) 10^3/u L Baso # (Auto) (0.0-0.1) 10^3/u L Nucleated RBC % (a uto) % Nucleated RBCs # /100WBC PT (12.1-14.9) SECO NDS INR (0.8-1.2) APTT (23.9-36.7) SECO NDS Specimen Type Sample Site ABG pH (7.35-7.45) ABG pCO2 (35-45) mmHg ABG pO2 (80.0-100.0) mmH g ABG HCO3 (22-26) mmol/L ABG Base Excess (-2.0-2.0) mmol/ L Edwin Test Hematocrit (42-52) % O2 Delivery Device FiO2 % Tidal Volume PEEP cmH20 Technical Report Writer ID Blood Gas Notified Time Sodium (136-145) mmol/L Potassium (3.5-5.1) mmol/L Chloride (98-107) mmol/L Carbon Dioxide (22-29) mmol/L Anion Gap (5-19) BUN (8-23) mg/dL Creatinine (0.7-1.2) mg/dL GFR Calculation (90-130) mL/min Glucose (65-115) mg/dL Calculated Osmolal ity (285-295) mOsm/k g Lactic Acid 3.4 H (0.5-2.2) mmol/L Calcium (8.5-10.5) mg/dL Magnesium (1.7-2.3) mg/dL Total Bilirubin (0.15-1.2) mg/dL AST (0-40) U/L ALT (0-41) U/L Alkaline Phosphata se (40-130) IU/L Creatine Kinase (39-308) U/L Troponin T Baselin e 73 H (0-15) ng/L Total Protein (6.6-8.7) g/dL Albumin (3.5-5.2) g/dL Globulin (1.3-4.6) g/dL Lipase (13-60) U/L Ethyl Alcohol (0-10) mg/dL Serum Ketones (Negative) Blood Type A Positive Rho(D) Type Positive Antibody Screen Negative Crossmatch See Detail 06/04/20 Range/Units 16:07 WBC (4.0-10.0) 10^3/ uL RBC (4.1-5.3) 10^6/u L Hgb (11.7-16.6) g/dL Hct (42.0-52.0) % MCV (80-94) fL MCH (28.0-34.0) pg MCHC (30.0-36.0) g/dL RDW (12.1-15.1) % Plt Count (130-400) 10^3/c mm MPV (7.4-10.4) fL Neut % (Auto) % Lymph % (Auto) % Ford % (Auto) % Eos % (Auto) % Baso % (Auto) % Neut # (Auto) (1.8-7.7) 10^3/u L Lymph # (Auto) (0.8-4.8) 10^3/u L Ford # (Auto) (0.2-0.9) 10^3/u L Eos # (Auto) (0.0-0.8) 10^3/u L Baso # (Auto) (0.0-0.1) 10^3/u L Nucleated RBC % (a uto) % Nucleated RBCs # /100WBC PT (12.1-14.9) SECO NDS INR (0.8-1.2) APTT (23.9-36.7) SECO NDS Specimen Type Arterial Sample Site Radial, left ABG pH 7.33 L (7.35-7.45) ABG pCO2 42.8 (35-45) mmHg ABG pO2 124.0 H (80.0-100.0) mmH g ABG HCO3 22.4 (22-26) mmol/L ABG Base Excess -3.5 L (-2.0-2.0) mmol/ L Edwin Test Pos Hematocrit 42.9 (42-52) % O2 Delivery Device Vent FiO2 100.0 % Tidal Volume 0.50 PEEP 8.0 cmH20 Technical Report Writer ID [email or web address] Blood Gas Notified Time 1620 Sodium (136-145) mmol/L Potassium (3.5-5.1) mmol/L Chloride (98-107) mmol/L Carbon Dioxide (22-29) mmol/L Anion Gap (5-19) BUN (8-23) mg/dL Creatinine (0.7-1.2) mg/dL GFR Calculation (90-130) mL/min Glucose (65-115) mg/dL Calculated Osmolal ity (285-295) mOsm/k g Lactic Acid (0.5-2.2) mmol/L Calcium (8.5-10.5) mg/dL Magnesium (1.7-2.3) mg/dL Total Bilirubin (0.15-1.2) mg/dL AST (0-40) U/L ALT (0-41) U/L Alkaline Phosphata se (40-130) IU/L Creatine Kinase (39-308) U/L Troponin T Baselin e (0-15) ng/L Total Protein (6.6-8.7) g/dL Albumin (3.5-5.2) g/dL Globulin (1.3-4.6) g/dL Lipase (13-60) U/L Ethyl Alcohol (0-10) mg/dL Serum Ketones (Negative) Blood Type Rho(D) Type Antibody Screen Crossmatch Imaging Data^: CXR: Attestation: I personally reviewed and interpreted this imaging study as follows: My impression: Mild cardiomegaly. Infiltrates noted right upper lobe, right lower lobe, left lower lobe. CT Head: Radiologist's impression: [employer] [address] [address] Scan Report Signed with Richard Patient: Felton Burton Unit #: [id number] : 1955 Age/Sex: 64 / M ADM Date: 06/04/20 Loc: ER Room/Bed: Attending Dr: Ordering Provider/Ordering MD: Brenda Colorado DO Date of Service: 06/04/20 Procedure(s): CT head wo con* [id number] Accession Number(s): [id number] Report Number: [id number]/CT head wo con* [id number] The small air bubbles adjacent to the right pterygoids are suspected to be intravascular air bubbles. There are additional small air bubbles in the right jugular vein and right subclavian vein which is probably from recent injection. THIS REPORT CONTAINS FINDINGS THAT MAY BE CRITICAL TO PATIENT CARE. The findings were verbally communicated via telephone conference with Brenda Colorado at 5:08 PM E D TECH on 06/04/2020. The findings were acknowledged and understood. Radiation Dose CTDIVOL = (mGy): DLP = 844.12 (mGy-cm) Addendum Dictated By: Marina Acosta Addendum Signed By: Marina Acosta Signed Date/Time: 06/04/201708 Addendum Cosigned By: PROCEDURE INFORMATION: Exam: CT Head Without Contrast Exam date and time: 06/04/2020 3:58 PM Age: 64 years old Clinical indication: Coma or unconsciousness; Patient HX: PT was found down at home w dried vomit on face; Additional info: Altered mental status TECHNIQUE: Imaging protocol: Computed tomography of the head without contrast. Radiation optimization: All CT scans at this facility use at least one of these dose optimization techniques: automated exposure control; mA and/or kV adjustment per patient size (includes targeted exams where dose is matched to clinical indication); or iterative reconstruction. COMPARISON: CT head wo con* [id number] 09/02/2019 9:16 PM RADIATION DOSE METRICS: Total DLP (mGy-cm): 844.12 FINDINGS: Brain: There is volume loss and periventricular low density compatible with chronic small vessel disease changes. There is no acute hemorrhage, edema or mass effect. Cerebral ventricles: The ventricular size is prominent but unchanged and compatible with ex vacuo type changes. Bones/joints: Unchanged old fractures of the nasal bones and nasal septum are noted. No acute fractures identified. The pterygoids are intact. Paranasal sinuses: Visualized sinuses are unremarkable. No fluid levels. Mastoid air cells: Visualized mastoid air cells are well aerated. Soft tissues: There is a trace amount of subcutaneous emphysema adjacent to the right pterygoid bones but there is no adjacent fluid collection or soft tissue edema. Nasal cavity: There are air-fluid levels in the nasal cavity, sphenoid and ethmoidal air cells. CT/CT head wo con* [id number] IMPRESSION: 1. No acute intracranial abnormality. 2. There are air-fluid levels in the nasal cavity, sphenoid and ethmoidal air cells. 3. There is a trace amount of subcutaneous emphysema adjacent to the right pterygoid bones but there is no adjacent fluid collection or soft tissue edema. The pterygoids are intact. Radiation Dose CTDIVOL = (mGy): DLP = 844.12 (mGy-cm) Dictated By: Marina Acosta Signed By: Marina Acosta Signed Date/Time: 06/04/201643 DD/ 42 CTA Chest with Abdomen Pelvis: Radiologist's impression: [employer] [facility] [address] [place] [address] CT Scan Report Signed Patient: Felton Burton Unit #: [id number] : 1955 Age/Sex: 64 / M ADM Date: 06/04/20 Loc: ER Room/Bed: Attending Dr: Ordering Provider/Ordering MD: Brenda Colorado DO Date of Service: 06/04/20 Procedure(s): CT angio chest w abd pel w con Accession Number(s): [id number] Report Number: [id number] PROCEDURE INFORMATION: Exam: CT Angiography Chest With Contrast Exam date and time: 06/04/2020 3:58 PM Age: 64 years old Clinical indication: Nausea and vomiting; Dyspnea; Patient HX: PT was found down at home w dried dark vomit on face TECHNIQUE: Imaging protocol: Computed tomographic angiography of the chest with intravenous contrast. 3D rendering (Not supervised by radiologist): MIP and/or 3D reconstructed images were created by the technologist. Radiation optimization: All CT scans at this facility use at least one of these dose optimization techniques: automated exposure control; mA and/or kV adjustment per patient size (includes targeted exams where dose is matched to clinical indication); or iterative reconstruction. Contrast material: VISI 320; Contrast volume: 95 ml; Contrast route: INTRAVENOUS (IV); COMPARISON: CR (CHEST, ) 06/04/2020 4:04 PM RADIATION DOSE METRICS: Total DLP (mGy-cm): 2112.31 FINDINGS: Tubes, catheters and devices: There is an ET tube with tip 9 mm above the bessy. This should be retracted about 3 cm. There is an orogastric tube with tip in the stomach. Pulmonary arteries: There is no pulmonary embolus. Aorta: Unremarkable. No aortic aneurysm. No aortic dissection. Lungs: There is diffuse airspace density greatest in the lower lobes, which may represent pneumonia, pulmonary edema, or inflammatory pneumonitis such as ARDS. Pleural space: Unremarkable. No pneumothorax. No pleural effusion. Heart: The heart is enlarged. Lymph nodes: Unremarkable. No enlarged lymph nodes. Bones/joints: Unremarkable. No acute fracture. Soft tissues: Unremarkable. IMPRESSION: 1. There is an ET tube with tip 9 mm above the bessy. This should be retracted about 3 cm. 2. There is diffuse airspace density greatest in the lower lobes, which may represent pneumonia, pulmonary edema, or inflammatory pneumonitis such as ARDS. 3. There is no pulmonary embolus. PROCEDURE INFORMATION: Exam: CT Abdomen And Pelvis With Contrast Exam date and time: 06/04/2020 3:58 PM Age: 64 years old Clinical indication: Nausea and vomiting; Dyspnea; Patient HX: PT was found down at home w dried dark vomit on face TECHNIQUE: Imaging protocol: Computed tomography of the abdomen and pelvis with intravenous contrast. Radiation optimization: All CT scans at this facility use at least one of these dose optimization techniques: automated exposure control; mA and/or kV adjustment per patient size (includes targeted exams where dose is matched to clinical indication); or iterative reconstruction. Contrast material: VISI 320; Contrast volume: 95 ml; Contrast route: INTRAVENOUS (IV); COMPARISON: CR (CHEST, ) 06/04/2020 4:04 PM RADIATION DOSE METRICS: Total DLP (mGy-cm): 2112.31 FINDINGS: Tubes, catheters and devices: A balloon bladder catheter is present. Liver: Unremarkable.No mass. Gallbladder and bile ducts: Normal. No calcified stones. No ductal dilation. Pancreas: Normal. No ductal dilation. Spleen: Normal. No splenomegaly. Adrenal glands: Normal. No mass. Kidneys and ureters: There is no evidence of hydronephrosis. There is no evidence of renal calcifications. There are bilateral renal cortical hypodensities measuring over 1 cm in size which have fluid density Hounsfield unit measurements compatible with cysts. The largest cyst on the right is a 5.6 cm midpole simple cyst and the largest cyst on the left is a 3.0 cm upper pole simple cyst. Stomach and bowel: There is no evidence of intestinal perforation or obstruction. There is no evidence of colitis/diverticulitis. There is a large amount of stool in the rectum. Early impaction cannot be excluded. The stomach is unremarkable. Appendix: A normal appendix is identified. Intraperitoneal space: Unremarkable. No free air. No significant fluid collection. Vasculature: The aorta demonstrates moderate atherosclerotic calcification. An inferior vena cava filter lies in appropriate position. Lymph nodes: Unremarkable.No enlarged lymph nodes. Urinary bladder: The bladder is decompressed.There is excessive colonic stool content. Reproductive: Unremarkable as visualized. Bones/joints: There is a chronic appearing fracture of L1. No acute bony abnormality. There is levoscoliosis with moderate degenerative changes in the spine. Soft tissues: There is a fat-containing umbilical hernia. CT/CT angio chest w abd pel w con IMPRESSION: 1. No acute abnormality in the abdomen or pelvis. Incidental findings are noted as above. 2. Fluid density renal cortical cysts. No follow-up is necessary. COMMENTS: Consistent with the [employer]'s Incidental Findings Committee white paper (J Am Char Radiol 2018): Any incidental renal lesion less than 1 cm or classified as too small to characterize, or any incidental cystic renal lesion characterized as simple-appearing, is likely benign. No follow-up imaging is recommended for these lesions per consensus recommendations based on imaging criteria. Radiation Dose CTDIVOL = (mGy): DLP = 2112.31 2112.31 (mGy-cm) Dictated By: Marina Acotsa Signed By: Marina Acosta Signed Date/Time: 06/04/201652 DD/ 51 Repeat CXR: Attestation: I personally reviewed and interpreted this imaging study as follows: My impression: ET tube with appropriate placement after adjustment. EKG Data^: EKG 1: Attestation: I personally reviewed and interpreted this EKG as follows: EKG interpretation date: 06/04/20 EKG interpretation time: 17:17 Interpretation: Sinus tachycardia 100 beats a minute, interventricular conduction delay, left axis deviation, first-degree AV block, PVCs noted. Computer generated interpretation: Head CT 06/04/20 14:47 IMPRESSION: 1. No acute intracranial abnormality. 2. There are air-fluid levels in the nasal cavity, sphenoid and ethmoidal air cells. 3. There is a trace amount of subcutaneous emphysema adjacent to the right pterygoid bones but there is no adjacent fluid collection or soft tissue edema. The pterygoids are intact. Radiation Dose CTDIVOL = (mGy): DLP = 844.12 (mGy-cm) ADDENDUM: 06/04/20 1709 The small air bubbles adjacent to the right pterygoids are suspected to be intravascular air bubbles. There are additional small air bubbles in the right jugular vein and right subclavian vein which is probably from recent injection. THIS REPORT CONTAINS FINDINGS THAT MAY BE CRITICAL TO PATIENT CARE. The findings were verbally communicated via telephone conference with Brenda Colorado at 5:08 PM E D TECH on 06/04/2020. The findings were acknowledged and understood. Radiation Dose CTDIVOL = (mGy): DLP = 844.12 (mGy-cm) Chest/Abdomen/Pelvis CT 06/04/20 15:08 IMPRESSION: 1. No acute abnormality in the abdomen or pelvis. Incidental findings are noted as above. 2. Fluid density renal cortical cysts. No follow-up is necessary. COMMENTS: Consistent with the [employer]'s Incidental Findings Committee white paper (J Am Char Radiol 2018): Any incidental renal lesion less than 1 cm or classified as too small to characterize, or any incidental cystic renal lesion characterized as simple-appearing, is likely benign. No follow-up imaging is recommended for these lesions per consensus recommendations based on imaging criteria. Radiation Dose CTDIVOL = (mGy): DLP = 2112.31~2112.31 (mGy-cm) Chest X-Ray 06/04/20 16:41 IMPRESSION: Bilateral airspace opacities in the lungs continue with mild improvement in the right upper lobe. Critical Care Time Critical Care Time: Critical Care Time: Yes Total Critical Care Time: 30 Attestation: Critical care time was exclusive of billable procedures. Critical care time consisted of facilitating intubation. Critical care time consisted of reviewing of laboratory values, multiple episodes of reviewing hemodynamic stability. Critical care time consisted of consulting with admitting team as well as consultants and with family. Discharge Plan Discharge Patient Disposition: Admitted As Inpatient Admit Provider: Jose Olivarez Clinical Impression: Sepsis Qualifiers: Sepsis type: sepsis due to unspecified organism Sepsis acute organ dysfunction status: unspecified Qualified Code(s): A41.9 - Sepsis, unspecified organism Condition: Stable Coding Level of Care Code ED Department Clerk for [facility] Fwd Exam Comprehensive
--- NOTE | 2020-06-04 15:08 | CTR_ITS ---
PROCEDURE INFORMATION: Exam: CT Angiography Chest With Contrast Exam date and time: 06/04/2020 3:58 PM Age: 64 years old Clinical indication: Nausea and vomiting; Dyspnea; Patient HX: PT was found down at home w dried dark vomit on face TECHNIQUE: Imaging protocol: Computed tomographic angiography of the chest with intravenous contrast. 3D rendering (Not supervised by radiologist): MIP and/or 3D reconstructed images were created by the technologist. Radiation optimization: All CT scans at this facility use at least one of these dose optimization techniques: automated exposure control; mA and/or kV adjustment per patient size (includes targeted exams where dose is matched to clinical indication); or iterative reconstruction. Contrast material: VISI 320; Contrast volume: 95 ml; Contrast route: INTRAVENOUS (IV); COMPARISON: CR (CHEST, ) 06/04/2020 4:04 PM RADIATION DOSE METRICS: Total DLP (mGy-cm): 2.31 FINDINGS: Tubes, catheters and devices: There is an ET tube with tip 9 mm above the bessy. This should be retracted about 3 cm. There is an orogastric tube with tip in the stomach. Pulmonary arteries: There is no pulmonary embolus. Aorta: Unremarkable. No aortic aneurysm. No aortic dissection. Lungs: There is diffuse airspace density greatest in the lower lobes, which may represent pneumonia, pulmonary edema, or inflammatory pneumonitis such as ARDS. Pleural space: Unremarkable. No pneumothorax. No pleural effusion. Heart: The heart is enlarged. Lymph nodes: Unremarkable. No enlarged lymph nodes. Bones/joints: Unremarkable. No acute fracture. Soft tissues: Unremarkable. IMPRESSION: 1. There is an ET tube with tip 9 mm above the bessy. This should be retracted about 3 cm. 2. There is diffuse airspace density greatest in the lower lobes, which may represent pneumonia, pulmonary edema, or inflammatory pneumonitis such as ARDS. 3. There is no pulmonary embolus. PROCEDURE INFORMATION: Exam: CT Abdomen And Pelvis With Contrast Exam date and time: 06/04/2020 3:58 PM Age: 64 years old Clinical indication: Nausea and vomiting; Dyspnea; Patient HX: PT was found down at home w dried dark vomit on face TECHNIQUE: Imaging protocol: Computed tomography of the abdomen and pelvis with intravenous contrast. Radiation optimization: All CT scans at this facility use at least one of these dose optimization techniques: automated exposure control; mA and/or kV adjustment per patient size (includes targeted exams where dose is matched to clinical indication); or iterative reconstruction. Contrast material: VISI 320; Contrast volume: 95 ml; Contrast route: INTRAVENOUS (IV); COMPARISON: CR (CHEST, ) 06/04/2020 4:04 PM RADIATION DOSE METRICS: Total DLP (mGy-cm): 2112.31 FINDINGS: Tubes, catheters and devices: A balloon bladder catheter is present. Liver: Unremarkable.No mass. Gallbladder and bile ducts: Normal. No calcified stones. No ductal dilation. Pancreas: Normal. No ductal dilation. Spleen: Normal. No splenomegaly. Adrenal glands: Normal. No mass. Kidneys and ureters: There is no evidence of hydronephrosis. There is no evidence of renal calcifications. There are bilateral renal cortical hypodensities measuring over 1 cm in size which have fluid density Hounsfield unit measurements compatible with cysts. The largest cyst on the right is a 5.6 cm midpole simple cyst and the largest cyst on the left is a 3.0 cm upper pole simple cyst. Stomach and bowel: There is no evidence of intestinal perforation or obstruction. There is no evidence of colitis/diverticulitis. There is a large amount of stool in the rectum. Early impaction cannot be excluded. The stomach is unremarkable. Appendix: A normal appendix is identified. Intraperitoneal space: Unremarkable. No free air. No significant fluid collection. Vasculature: The aorta demonstrates moderate atherosclerotic calcification. An inferior vena cava filter lies in appropriate position. Lymph nodes: Unremarkable.No enlarged lymph nodes. Urinary bladder: The bladder is decompressed.There is excessive colonic stool content. Reproductive: Unremarkable as visualized. Bones/joints: There is a chronic appearing fracture of L1. No acute bony abnormality. There is levoscoliosis with moderate degenerative changes in the spine. Soft tissues: There is a fat-containing umbilical hernia. CT/CT angio chest w abd pel w con IMPRESSION: 1. No acute abnormality in the abdomen or pelvis. Incidental findings are noted as above. 2. Fluid density renal cortical cysts. No follow-up is necessary. COMMENTS: Consistent with the [employer]'s Incidental Findings Committee white paper (J Am Char Radiol 2018): Any incidental renal lesion less than 1 cm or classified as too small to characterize, or any incidental cystic renal lesion characterized as simple-appearing, is likely benign. No follow-up imaging is recommended for these lesions per consensus recommendations based on imaging criteria. Radiation Dose CTDIVOL = (mGy): DLP = 2112.31~2112.31 (mGy-cm)
[2020-06-04] MEDS: ondansetron 2 mg/ML SDV 2 mL 4 MG IVP (15:20)
[2020-06-04] MEDS: cefTRIAXone 1,000 MG in sodium chloride 0.9% (plus) 50 ML 100 MG IV (15:20)
[2020-06-04] MEDS: succinylcholine 20 mg/mL SDV 10mL 175 MG IVP (15:25)
[2020-06-04] MEDS: LORazepam 2 mg/mL INJ 1 mL IVP (15:27)
[2020-06-04] MEDS: vecuronium 10 mg SDV 14 MG IVP (15:28)
[2020-06-04] MEDS: pantoprazole 40 mg SDV 80 MG IVP (15:30)
[2020-06-04 15:59] LABS: Basophils % 0.3 %; Hematocrit 44.5 % (42.0-52.0); Hemoglobin 13.7 g/dL (11.7-16.6); Lymphocytes # 0.4 10^3/uL (0.8-4.8); Lymphocytes % 5.7 %; Mean Corpuscular HGB Conc 30.8 g/dL (30.0-36.0); Mean Corpuscular Hemoglobin 28.5 pg (28.0-34.0); Mean Corpuscular Volume 92.5 fL (80-94); Mean Platelet Volume 12.3 fL (7.4-10.4); Monocytes # 0.6 10^3/uL (0.2-0.9); Monocytes % 7.9 %; Neutrophils # 6.69 10^3/uL (1.8-7.7); Nucleated Red Blood Cells % 0 %; Platelet Count 74 10^3/cmm (130-400); Red Blood Count 4.81 10^6/uL (4.1-5.3); Red Cell Distribution Width 14.9 % (12.1-15.1); White Blood Count 7.8 10^3/uL (4.0-10.0)
--- NOTE | 2020-06-04 16:06 | XRR_ITS ---
PROCEDURE INFORMATION: Exam: XR Chest, 1 View Exam date and time: 06/04/2020 4:07 PM Age: 64 years old Clinical indication: Device placement; Ett placement (vent status); Additional info: Post intubation TECHNIQUE: Imaging protocol: XR of the chest Views: 1 view. COMPARISON: CR (CHEST, ) 06/04/2020 2:46 PM FINDINGS: Tubes, catheters and devices: There is an ET tube with tip just below the clavicular heads and 3 cm above the bessy. There is an orogastric tube with tip in the stomach. Lungs: Multifocal airspace opacities in the lungs continue with mild improvement compared to the prior exam. Mild vascular congestion is slightly improved. Pleural space: Unremarkable. No pleural effusion. No pneumothorax. Heart/Mediastinum: The heart is enlarged. Bones/joints: No acute abnormality. XR/XR chest 1V portable [id number] IMPRESSION: 1. Multifocal airspace opacities in the lungs continue with mild improvement compared to the prior exam. 2. Lines and tubes are in good position.
[2020-06-04 16:17] LABS: ABG PCO2 42.8 mmHg (35-45); ABG PH Result 7.33 (7.35-7.45); Arterial Blood Gas Hematocrit 42.9 % (42-52); Base Excess ABG -3.5 mmol/L (-2.0-2.0); Blood Gas Allen Test Pos; Blood Gas Operator Identificat glc; Blood Gas Sample Site Radial, left; Blood Gas Sample Type Arterial; HCO3 ABG 22.4 mmol/L (22-26); Oxygen Device VENT
[2020-06-04 16:19] LABS: Blood Gas CCRB Time 1620
[2020-06-04 16:25] LABS: Ketone (Acetest) Serum Negative (Negative)
[2020-06-04] MEDS: iodixanol 320 mg/mL 100mL Btl IV (16:30)
[2020-06-04 16:33] LABS: INR 2.78 (0.8-1.2)
[2020-06-04 16:35] LABS: Partial Thromboplastin Time 65.2 SECONDS (23.9-36.7)
[2020-06-04 16:37] LABS: Lactic Sepsis W/Reflex 3.4 mmol/L (0.5-2.2)
[2020-06-04 16:38] LABS: Alanine Aminotransferase 11 U/L (0-41); Albumin Level 3.4 g/dL (3.5-5.2); Alkaline Phosphatase 57 IU/L (40-130); Aspartate Amino Transferase 21 U/L (0-40); Creatine Phosphokinase 188 U/L (39-308); Glucose 92 mg/dL (65-115); Sodium 145 mmol/L (136-145)
[2020-06-04 16:39] LABS: Troponin(5th) Baseline 73 ng/L (0-15)
--- NOTE | 2020-06-04 16:41 | XRR_ITS ---
PROCEDURE INFORMATION: Exam: XR Chest, 1 View Exam date and time: 06/04/2020 4:42 PM Age: 64 years old Clinical indication: Device placement; Ett placement (vent status); Additional info: Tube placement TECHNIQUE: Imaging protocol: XR of the chest Views: 1 view. COMPARISON: CR (CHEST, ) 06/04/2020 4:04 PM FINDINGS: Tubes, catheters and devices: There is an ET tube with tip at the clavicular heads an orogastric tube with tip off the film. Lungs: Bilateral airspace opacities in the lungs continue with mild improvement in the right upper lobe. Mild vascular congestion is unchanged. Pleural space: Unremarkable. No pleural effusion. No pneumothorax. Heart/Mediastinum: Unremarkable. No cardiomegaly. Bones/joints: No acute abnormality. Soft tissues: There is abundant contrast in the right axilla compatible with contrast extravasation during the prior CT scan. XR/XR chest 1V portable [id number] IMPRESSION: Bilateral airspace opacities in the lungs continue with mild improvement in the right upper lobe.
--- NOTE | 2020-06-04 16:47 | ECG_ITS ---
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 Measurements Intervals [place] Rate: 100 P: 60 [place]: 216 QRS: -70 QRSD: 108 T: 6 QT: 310 QTc: 400 Interpretive Statements SINUS TACHYCARDIA WITH FIRST DEGREE AV BLOCK WITH OCCASIONAL VENTRICULAR PREMATURE COMPLEXES PATTERN CONSISTENT WITH PULMONARY DISEASE INFERIOR MYOCARDIAL INFARCTION , PROBABLY OLD [40+ ms Q WAVE AND/OR ST/T ABNORMALITY IN II/aVF] Compared to ECG 10/27/2019 14:45:13 Ventricular premature complex(es) now present Myocardial infarct finding now present Sinus rhythm no longer present Sinus arrhythmia no longer present Left anterior fascicular block no longer present Electronically Signed On 06-04-2020 18:52:55 [employer]INTER [employer] by Fabio Becerra M.D. [id number]
[2020-06-04] MEDS: propofol 1,000 MG/100 ML INJ 3.4 MG IV (16:55)
[2020-06-04 17:00] LABS: Blood Urea Nitrogen 26 mg/dL (8-23); Calcium 8.1 mg/dL (8.5-10.5); Carbon Dioxide 24 mmol/L (22-29); Chloride 107 mmol/L (98-107); Globulin 1.9 g/dL (1.3-4.6); Glomerular Filtration Rate 35.9 mL/min (90-130); Lipase 7 U/L (13-60); Magnesium 1.6 mg/dL (1.7-2.3); Total Bilirubin 1.2 mg/dL (0.15-1.2); Total Protein 5.3 g/dL (6.6-8.7)
[2020-06-04 17:14] LABS: Alcohol Level < 10 mg/dL (0-10); Osmolality Calculated 304 mOsm/kg (285-295)
[2020-06-04] MEDS: sodium chloride 0.9% 1,000 ML 100 ML IV ×2 (17:14→20:33)
[2020-06-04 17:15] LABS: Anion Gap 18.2 (5-19); Potassium 4.2 mmol/L (3.5-5.1)
[2020-06-04] MEDS: piperacillin-tazobactam 3.375 GM in sodium chloride 0.9% (plus) 50 ML IV (17:16)
[2020-06-04 17:25] LABS: Reflex Lactate Order REFLEX LACTIC ORDERD
[2020-06-04] MEDS: vecuronium 10 mg SDV IVP (17:44)
--- NOTE | 2020-06-04 17:52 | PM.HP ---
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 Patient was intubated at the time of my eval and not able to provide history. HPI obtained from review of records and discussion with ER staff. Patient was stable until dinner time last evening when he apperantly aspirated while attempting to drink pepsi. Subsequently started to have multiple episode of emesis which appeered to be dark brown appearing. suspected this to be chocalate ice cream he had just consumed. He went to bed after and earlier today was found to be in bed covered in further emesis, confused and in respratory distress at which point ems was called. He was immediately intubated and placed on mechanical ventilation due to labored respiration. Unlcear if initial BP was accurate however he was noted to be hypotensive. He was started on levophed which was weaned off due to repeat hypertensive vitals. OG tube was placed. RT did suction bright red blood up to 50cc after intubation. ( nontraumatic intubation ), FOBT in ER was negative. Patient was started on Protonix gtt, IV zosyn 3.375 gram. General surgery was also consulted. Initial laboratory workup showed a WBC of 7.8, hemoglobin of 13.7, hematocrit of 44.5 and a platelet count of 74. sodium 145, potassium 4.2, chloride 107, bicarb 24, BUN 26 and creatinine of 1.9. Baseline creatinine of 1.5. AST of 21, ALT of 11 and alkaline phosphatase of 57. magnesium of 1.6. Lipase of 7. lactic acid of 3.4 and INR 2.78. Urine analysis and drug screen was pending. Imaging studies included chest x-ray which showed multifocal asymmetric bilateral airspace opacities are identified greatest in the right upper lobe and medial left lower lobe concerning for pneumonic infiltrates vs mild CHF. CT Chest, abdomen, pelvis with IV contrast was then performed which showed ET tube with tip 9mm above the bessy ( retracted 3 cm), diffuse bilateral airspace density greatest in lower lobes, no PE. Abdominal/Pelvic portion did not show any acute abnormalities with normal appearting liver. CT head was performed which showed small air bubbles adjacent to the right pterygoids are suspected to be intravascular air bubbles. There are additional small air bubbles in the right jugular vein and right subclavian vein which is probably from recent injection. ER dw neurosurgery and no intervention was indicated. Review of Systems General: Reports: ROS unobtainable due to medical condition Medications/Allergies Home Medications Medication Instructions Recorded Confirmed Last Taken Type mirtazapine 7.5 mg PO BEDTIME 10/27/19 06/04/20 10/26/19 History olanzapine 20 mg PO BEDTIME 06/04/20 06/04/20 Unknown History warfarin See Rx Instructions .ROUTE .COMPLEX 06/04/20 06/04/20 Unknown History Allergies Allergy/AdvReac Type Severity Reaction Status Date / Time No Known Allergies Allergy Verified 10/27/19 14:02 PFSH Acute PFSH: Medical History Antiphospholipid antibody syndrome Chronic anticoagulation Critical limb ischemia with history of revascularization of same extremity Dementia Depression DVT (deep venous thrombosis) History of ITP Hyperlipidemia Pulmonary embolism Surgical History (Updated 06/04/20 @ 18:51 by Jaylen Romo MD) Surgical history unknown Social History Smoking and tobacco status: never smoked Vitals/I&O/Wt Last Vital Signs Temp 97.6 F 06/04/20 14:51 Pulse 98 06/04/20 14:51 Resp 24 H 06/04/20 17:11 BP 195/167 06/04/20 14:51 Pulse Ox 90 06/04/20 17:11 06/04/20 06/04/20 06/04/20 06:59 14:59 22:59 Intake Total 105.950 / 105.950 Balance 105.950 / 105.950 Weight last 48 hrs Weight 113.398 kg Physical Exam Narrative: EXAM NARRATIVE: General- intubated on mechanical ventilation, disheveled appearance HEENT- ET tube in place CVS- normal sinus rhythm Chest- on mechanical ventilation Abdomen- non-distended Extremities- chronic LE dermatitis Urinary Catheter Management^: Domínguez: Cath Placed During This Visit: yes Reason for Continuing Indwelling Catheter: Accurate Measurement of Urinary Output in Critically Ill Patients Urinary Catheter Date of Insertion: 06/04/20 Urinary Catheter Time of Insertion: 16:26 Data : 06/04/20 15:25 06/04/20 15:25 Micro: Microbiology 06/04/20 15:40 Gram Stain - Final Sputum - Endotracheal Tube Aspirate A&P Assessment and plan (1) Chronic anticoagulation: Status: Acute (2) DVT (deep venous thrombosis): Status: Acute (3) Acute respiratory failure with hypoxia: Status: Acute (4) Septic shock: Status: Acute (5) Aspiration pneumonitis: Status: Acute (6) Upper GI bleed: Status: Acute (7) Acute on chronic kidney failure: Status: Acute (8) Lactic acidosis: Status: Acute (9) Antiphospholipid antibody syndrome: Status: Acute (10) Pulmonary embolism: Status: Acute (11) Antiphospholipid antibody syndrome: Status: Acute (12) Hyperlipidemia: Status: Acute (13) Dementia: Status: Acute Acute respiratory failure with hypoxemia on MV - Possibly due to aspiration pneumonitis vs multifocal pneumonia - Abg 7.33, pCO2 42.8, pO2 124, HCO3 22.4 on fio2 100%, PEEP of 8, TV of 500 AC - CT Chest PE protocol showed diffuse B/L airspace densities, No PE - Continue Vent - Wean FIo2, Repeat abg and chest x-ray in am - Vent bundle - OG tube inserted - Propofol / Fentanyl started for sedation, Maintain RASS of -2 - Empirically started on Zosyn 3.375g Renally dosed - Blood culture x 2, Sputum culture, and COVID-19 rapid ag pending - Airborne/droplet precautions until COVID-19 results - Continue IVF with NS at 100 cc/hr Suspected Upper GI bleed - Aspiration of small amount of bright red blood in ER - Unclear if Emesis prior to arrival was consistent with blood - Possibly due to Evelina raymond tear - H/H stable - repeat pending - Type cross and 2 units held - Monitor H/H q6hr - Transfuse if < 8.0 - Will hold off on reversing Coumadin unless hb drop on repeat labs - This is due to complicated hx of arterial and venous thrombosis - Stool Guiac in ER was negative. - Colonoscopy in 11/2018 - negative - General surgery consulted Sepsis with shock vs hypovolemic - Possible present on admit - Off IV pressors - Empirically on IV zosyn - IVF - Lactic acidosis 3.4 - reflex pending - Blood culture x 2 - Sputum culture - COVID -19 rapid ag Acute on chronic stage 3 kidney failure - Baseline creatinine of 1.5. - Creatinine 1.9 - Started on on IVF resuscitation - Domínguez placed, Monitor urine output Antiphospholipid ab syndrome with h/o of DVT/PE / right tibial artery thrombosis s/p stent - DVT in 2009, 2016, - Status post IVC filter - On Coumadin - INR 2.78 - Plan as noted above under GI bleed Immune thrombocytopenic purpura dx in 2017 - Refractory to prednisone/rituxan in past - Unlear if prior IVIG - Following with hematology ( Dr. Schuler ) - Plt currently stable - Repeat CBC in am - May require steroids, plt trasnfusion - Consider hematology consult inpatient Hyperlipidemia - On statin prior to arrival - Hold for now H/o of CVA - Unknown residual deficits Hx of early onset dementia / depression - Assess mental status once extubated Gi ppx - Protonix gtt DVT ppx - None due to PVD/GI bleed Attestations Medical Necessity Statement*: 64-year-old male admitted to the hospital with respiratory failure requiring mechanical ventilation, septic shock, upper GI bleed and renal failure with require over 2 midnight stay in hospital for evaluation and treatment. 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
[2020-06-04 18:26] LABS: Add Urine Microscopic? YES; Bilirubin Urine Neg (Negative); Blood Urine Trace (Negative); Glucose Urine UA Norm (Normal); Ketones Urine 1+ (Negative); Leukocyte Esterase Urine Negative (Negative); Nitrate Urine Negative (Negative); Protein Urine Neg (Negative); Urine Appearance Clear (CLEAR); Urine Color Yellow (Yellow); Urobilinogen Urine Norm (Negative); pH Urine 5 (5-7)
--- NOTE | 2020-06-04 18:28 | P.CONIM_ITS ---
Providers/Reason For Consult Consulting Physican/Specialty*: General Surgery Jaylen Romo MD Reason for Consult*: Possible upper GI bleeding. Attending Physician: oJse Olivarez Primary Care Provider: Kei Silva History of Present Illness History of Present Illness Felton Burton is a 64 year old male who came in the emergency room today with altered mental status. No family members are here with him currently and he is intubated and cannot give me any history. From what I understand, the patient is on chronic anticoagulation with Coumadin due to a history of DVTs/PE as well as possible arterial insufficiency. His , who spoke to the emergency room physician earlier, indicated that the patient seemed to get choked on some Pepsi Cola last night during dinner and thought he may have aspirated some. He gagged and threw up some material that she said was similar to chocolate ice cream. He subsequently went to bed and she thought he was okay. She went to wake him this afternoon after he asked not to be bothered until noon. She says he was in a very altered mental state and was covered in more apparent emesis which again, appeared to be consistent with chocolate ice cream. The patient came to the emergency room and due to his dyspnea was eventually orotracheally intubated. An orogastric tube was also passed. A CAT scan of the abdomen and pelvis revealed no acute abnormalities. I was asked to see him for fear that some of his vomitus may have been consistent with upper GI bleeding. Review of Systems General: Reports: ROS unobtainable due to endotracheal tube Meds/Allergies Home Medications and Allergies Home Medications Medication Instructions Recorded Confirmed Last Taken Type mirtazapine 7.5 mg PO BEDTIME 10/27/19 06/04/20 10/26/19 History olanzapine 20 mg PO BEDTIME 06/04/20 06/04/20 Unknown History warfarin See Rx Instructions .ROUTE .COMPLEX 06/04/20 06/04/20 Unknown History Allergies Allergy/AdvReac Type Severity Reaction Status Date / Time No Known Allergies Allergy Verified 10/27/19 14:02 Current Medications Current Medications Generic Name Dose Route Start Last Admin Trade Name Freq PRN Reason Stop Dose Admin Sodium Chloride 1,000 mls @ 100 mls/hr 06/04/20 14:45 06/04/20 17:14 Sodium Chloride 0.9% IV 100 mls/hr .Q10H JOCELIN Administration Propofol 1,000 mg in 100 mls @ 0 mls/hr 06/04/20 15:00 06/04/20 16:55 Diprivan IV 5 mcg/kg/min .Q0M JOCELIN 3.4 mls/hr Administration Protocol Per Protocol Fentanyl 1,000 mcg/ Sodium 100 mls @ 0 mls/hr 06/04/20 15:15 06/04/20 17:11 Chloride IV 25 mcg/hr .Q0M JOCELIN 2.5 mls/hr Administration Protocol Per Protocol Norepinephrine Bitartrate 4 mg 254 mls @ 0 mls/hr 06/04/20 15:15 06/04/20 18:01 / Dextrose IV 56.2 mls/hr .Q0M JOCELIN Titration Protocol Per Protocol PFSH Acute PFSH: Medical History Antiphospholipid antibody syndrome Chronic anticoagulation Critical limb ischemia with history of revascularization of same extremity Dementia Depression DVT (deep venous thrombosis) History of ITP Hyperlipidemia Pulmonary embolism Surgical History (Updated 06/04/20 @ 18:51 by Jaylen Romo MD) Surgical history unknown Social History Smoking and tobacco status: never smoked Vitals/I&O/Wt Last Vital Signs Temp 97.6 F 06/04/20 14:51 Pulse 98 06/04/20 14:51 Resp 24 H 06/04/20 17:11 BP 195/167 06/04/20 14:51 Pulse Ox 90 06/04/20 17:11 06/04/20 06/04/20 06/04/20 06:59 14:59 22:59 Intake Total 112.825 / 112.825 Balance 112.825 / 112.825 Weight last 48 hrs Weight 250 lb Physical Exam Narrative: EXAM NARRATIVE: The patient was encountered in his room in the emergency department. He is orotracheally intubated and has an orogastric tube in place that is draining green bilious material. He cannot respond any questions. The pupils seem equal. No carotid bruits are heard. The lungs seem clear anteriorly. The heart is regular. The abdomen is mildly to moderately obese but is soft. I cannot feel any obvious masses. I do not see any evidence of any obvious surgical scars but he does have a very small punctate scar in the left upper quadrant of the abdomen. The lower extremities reveal some evidence of vascular disease and he has some small wounds in various stages of healing. The patient cannot be evaluated fully from a neurological standpoint. Urinary Catheter Management^: Domínguez: Cath Placed During This Visit: yes Reason for Continuing Indwelling Catheter: Accurate Measurement of Urinary Output in Critically Ill Patients Urinary Catheter Date of Insertion: 06/04/20 Urinary Catheter Time of Insertion: 16:26 Data Micro: Micro: Microbiology 06/04/20 15:40 Gram Stain - Final Sputum - Endotrac heal Tube Aspirate Imaging^: CT Abd/Pel: Radiologist's impression: CT abdomen/pelvis 06/04/2020 IMPRESSION: 1. No acute abnormality in the abdomen or pelvis. Incidental findings are noted as above. 2. Fluid density renal cortical cysts. No follow-up is necessary. A&P Assessment and plan (1) Vomiting: Despite what was reported earlier, right now the patient has an orogastric tube in place that is clearly draining bilious material without any evidence of bright red blood, coffee-ground appearing material, etc. It does not appear that he has any ongoing upper GI bleeding presently despite his chronic anticoagulation. I will be happy to follow the patient peripherally in the event any endoscopy is needed in the near future. Please call if any sudden changes occur. Status: Acute Consult Attestations Medical Necessity Statement: See admitting service's notation. 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
[2020-06-04 18:30] LABS: RBC Urine 0-4 /hpf (0-2)
[2020-06-04 18:31] LABS: Amphetamines Screen Urine Negative (Negative); Barbiturates Screen Urine Negative (Negative); Benzodiazepines Screen Urine Negative (Negative); Cocaine Screen Urine Negative (Negative); Opiate Screen Urine Negative (Negative); PCP Screen Urine Negative (Negative); THC Screen Urine Negative (Negative)
[2020-06-04 18:34] LABS: Squamous Epithelial Cell Urine RARE /hpf (0-5)
[2020-06-04 18:35] LABS: Add Urine Culture? No
[2020-06-04 19:05] LABS: Lactic Acid level (Lactate) 3.1 mmol/L (0.5-2.2)
[2020-06-04 19:06] LABS: Troponin 5 2HR 56.14 ng/L (0-15)
[2020-06-04 19:07] LABS: Troponin 5 2HR Delta -16.86 ABS# (0-10)
--- NOTE | 2020-06-04 20:47 | ECG_ITS ---
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 Measurements Intervals [place] Rate: 91 P: -66 [place]: 148 QRS: -68 QRSD: 122 T: -30 QT: 340 QTc: 419 Interpretive Statements SINUS RHYTHM WITH OCCASIONAL VENTRICULAR PREMATURE COMPLEXES INFERIOR MYOCARDIAL INFARCTION [40+ ms Q WAVE AND/OR ST/T ABNORMALITY IN II/aVF], OF INDETERMINATE AGE Compared to ECG 06/04/2020 17:17:27 Ventricular premature complex(es) now present Sinus tachycardia no longer present First degree AV block no longer present Myocardial infarct finding still present Electronically Signed On 06-05-2020 16:45:22 GARDE MANGER by Fabio Becerra M.D. [id number]
[2020-06-04 21:47] LABS: Troponin 5 6HR 16.38 ng/L (0-15)
[2020-06-04 22:04] LABS: SARS Covid-2 Antigen Negative (Negative)
[2020-06-04] MEDS: norepinephrine 8 MG in dextrose 5 % 500 ML 57.2 MG IV (23:25)
[2020-06-04 23:31] LABS: Hematocrit 50.3 % (42.0-52.0); Hemoglobin 15.5 g/dL (11.7-16.6)
[2020-06-05] VITALS (58 sets, daily range): BP systolic 78–130; BP diastolic 47–70; PULSE 93–109; RESP 17–23; TEMP 36.8–38.5; O2SAT 85–98; BMI 27.6
[2020-06-05] MEDS: phenylephrine inj 25 MG in sodium chloride 0.9% 250 ML 24.2 MG IV (00:02)
[2020-06-05] MEDS: piperacillin-tazobactam 3.375 GM in sodium chloride 0.9% (plus) 50 ML IV ×3 (02:16→16:54)
[2020-06-05 04:28] LABS: INR 2.58 (0.8-1.2)
--- NOTE | 2020-06-05 05:17 | PC.NURSE ---
Addendum entered by Daniela Navas RN 06/05/20 06:41: 25 mL of fentanyl wasted with JOSE Courtney. Original Note: FENTANYL WASTE 25 mL fentanyl wasted with JOSE Suarez
[2020-06-05 05:18] LABS: Arterial Blood Gas Hematocrit 42.3 % (42-52); Blood Gas Allen Test Pos; Blood Gas Sample Site Femoral, right; Blood Gas Sample Type Arterial
[2020-06-05 05:40] LABS: Oxygen Device vent
--- NOTE | 2020-06-05 05:46 | PC.NURSE ---
IV INFILTRATED Pt BP started falling again. Slade was titrated up (see MAR). BP continued to be soft (MAP in 50's). EJ IV was checked and had infiltrated. New IV started (18 g to rt wrist). Pressors restarted. Warm compress applied to EJ area and IV d/c. Dr. Mckenna notified.
--- NOTE | 2020-06-05 08:47 | P.PN_ITS ---
Subjective Subjective: Interval history: Chart reviewed, remains on vent support, dual pressor support and sedation. BP remains low. Low grade temp of 100.6 F this AM. Labs pending. Had 650 mL urine output overnight. Bilious drainage from OGT. Seen several times throughout the day, has remained on dual pressor support throughout the day, low urine output so far today, noted worsening renal fun ction on labs. Called and updated on patient's clinical status. Medications: Reviewed: Yes Medication Review Details: Active Medications Generic Name Dose Route Start Last Admin Trade Name Freq PRN Reason Stop Dose Admin Acetaminophen 650 mg 06/04/20 17:48 Acetaminophen 65 0 Mg Supp UT Q6H PRN FEVER Sodium Chloride 1,000 mls @ 100 m ls/hr 06/04/20 14:45 06/05/20 07:04 Sodium Chloride 0.9% IV Infused .Q10H JOCELIN Infusion Propofol 1,000 mg in 100 m ls @ 0 mls/hr 06/04/20 15:00 06/05/20 06:31 Diprivan IV Infused .Q0M JOCELIN Titration Protocol Per Protocol Fentanyl 1,000 mcg / Sodium 100 mls @ 0 mls/h r 06/04/20 15:15 06/05/20 05:17 Chloride IV 25 mcg/hr .Q0M JOCELIN 2.5 mls/hr Administration Protocol Per Protocol Norepinephrine Bit artrate 4 mg 254 mls @ 0 mls/h r 06/04/20 15:15 06/04/20 23:24 / Dextrose IV Infused .Q0M JOCELIN Titration Protocol Per Protocol Piperacillin Sod/T azobactam 50 mls @ 12.5 mls /hr 06/05/20 01:00 06/05/20 06:31 Sod 3.375 gm/ So dium Chloride IV Infused Q8H JOCELIN Infusion Protocol Norepinephrine Bit artrate 8 mg 508 mls @ 0 mls/h r 06/04/20 23:15 06/04/20 23:54 / Dextrose IV 12 mcg/min .Q0M JOCELIN 45.7 mls/hr Titration Protocol Per Protocol Phenylephrine HCl 25 mg/ 252.5 mls @ 0 mls /hr 06/04/20 23:45 06/05/20 05:23 Sodium Chloride IV 80 mcg/min .Q0M JOCELIN 48.5 mls/hr Titration Protocol Per Protocol Ondansetron HCl 4 mg 06/04/20 17:48 Ondansetron 2 Mg /Ml Sdv 2 Ml IVP Q6H PRN NAUSEA AND VOMITI NG No Known Allergies Allergy (Verified 10/27/19 14:02) Vitals/I&O/Wt Last Vital Signs Temp 100.6 F H 06/05/20 07:30 Pulse 107 H 06/05/20 08:30 Resp 23 H 06/05/20 07:33 BP 87/62 06/05/20 08:30 Pulse Ox 96 06/05/20 08:30 06/04/20 06/05/20 06/05/20 22:59 06:59 14:59 Intake Total 454.242 / 454.242 519.657 / 548.771 0525 / 1000 Output Total 650 / 650 Balance 454.242 / 454.242 -130.343 / 380.257 3971 / 1000 Weight last 48 hrs Weight 100.425 kg Weight 113.398 kg Physical Exam Const: GENERAL APPEARANCE: ill appearing and patient mechanically ventilated OTHER: -sedated HENMT: COMMON NORMALS: normocephalic and atraumatic HEAD & SCALP: normocephalic and atraumatic OTHER: -orally intubated, OGT in place, bilious drainage Eye: COMMON NORMALS: conjunctivae normal and no scleral icterus CONJUNCTIVA: Yes conjunctivae normal PUPIL: Yes Pinpoint pupils bilaterally Neck/C-Spine: COMMON NORMALS: full ROM GENERAL: Yes normal visual inspection and Yes trachea midline Resp: COMMON NORMALS: normal respiratory effort, No retractions and No use of accessory muscles EFFORT & INSPECTION: Yes symmetric chest movement and No tachypneic AUSCULTATION: diminished lung sounds OTHER: -on vent support (50%/550/10); ETT-26 cm @ lip Cardio: COMMON NORMALS: regular rhythm, S1 normal heart sound present, S2 normal heart sound present and No murmurs present (Cardio) RATE: tachycardic RHYTHM: regular rhythm HEART SOUNDS: S1 normal heart sound present and S2 normal heart sound present GI: COMMON NORMALS: Normal to inspection, nondistended, normoactive bowel sounds present and Soft to palpation PALPATION: Yes Soft to palpation : BLADDER/KIDNEY EXAM: Yes catheter in place Catheter type (Male): urethral Extremity: COMMON NORMALS: normal to inspection, full ROM, no clubbing, cyanosis or edema and no pedal edema Neuro: OTHER: -sedated Psych: OTHER: -sedated Skin: COMMON NORMALS: no rashes or lesions noted, no jaundice, no petechiae and no mottling GENERAL SKIN EXAM: no rashes or lesions noted Urinary Catheter Management^: Domínguez: Cath Placed During This Visit: yes Reason for Continuing Indwelling Catheter: Accurate Measurement of Urinary Output in Critically Ill Patients Urinary Catheter Date of Insertion: 06/04/20 Urinary Catheter Time of Insertion: 16:26 Data : 06/05/20 11:50 06/05/20 11:50 Micro: Microbiology 06/04/20 15:40 Gram Stain - Final Sputum - Endotracheal Tube Aspirate A&P Assessment and plan (1) Acute respiratory failure with hypoxia: -Intubated in the ER secondary to noted altered mental status and respiratory distress -Remains on ventilator support, sedation -Weaning trial when appropriate -Daily ABG, chest x-ray while on vent support -Noted improvement in right upper lobe on x-ray today, continued evidence of bilateral airspace opacities -Given reported preceding emesis there is continued concern for aspiration pneumonia -Continue broad-spectrum IV antibiotic coverage with Zosyn -Rapid COVID-19 testing negative; off isolation precautions -sputum culture pending, gram stain rare GPC -order blood cultures Status: Acute (2) Aspiration pneumonitis: -as noted above Status: Acute (3) Septic shock: -septic shock as evidenced by lactic acidosis, fever, hypotension, tachycardia, tachypnea, WILBERT, acute respiratory failure -concern for hypovolemia given emesis -on IVF, dual pressor support, broad spectrum IV antibiotics -UA negative Status: Acute (4) Lactic acidosis: -as noted above Status: Acute (5) Upper GI bleed: -with additional history, dark color of emesis likely cola vs. chocolate ice cream -bilious drainage from OGT currently; FOBT negative -continue to monitor H/H closely -AC on hold -INR-2.58; goal is 2-3 -Surgery consult by Dr. Romo appreciated Status: Acute (6) Antiphospholipid antibody syndrome: -on AC with coumadin which is currently on hold due to concern for upper GI bleed Status: Chronic (7) Pulmonary embolism: -known prior hx of PE -on AC with coumadin Status: Chronic Qualifiers: Acute cor pulmonale presence: unspecified Chronicity: chronic Pulm onary embolism type: unspecified Qualified Code(s): I27.82 - Chronic pulmonary embolism (8) DVT (deep venous thrombosis): -s/p IVC filter Status: Chronic Qualifiers: Affected thrombotic vein of extremity: unspecified vein of extremity Chronicity: chronic DVT location: lower extremity Laterality: unspecified lat erality Qualified Code(s): I82.509 - Chronic embolism and thrombosis of un specified deep veins of unspecified lower extremity Additional A&P Information -noted troponin elevation with significant delta; likely type II secondary to septic shock. Echo (08/2018): EF=68%, no RWMA, mild-moderate MR, trace to mild TR. Order repeat Echo, telemetry monitoring -hx of tibial artery thrombosis s/p stenting -suspected dementia, likely vascular given prior hx of CVA -WILBERT on CKD stage 3; baseline Cr is around 1.3-1.4; continue to monitor renal fu nction, avoid nephrotoxins, renally dose meds. Noted oliguria today; may need nephrology evaluation if continued renal impairment and decreased urine output; order renal US -Acute encephalopathy; noted altered mental status per report on admission. Currently on sedation, UDS negative, EtOH negative -Chronic thrombocytopenia; platelet count appears to be at baseline -NPO -GI ppx with PPI -DVT ppx with SCDs -Dispo: home; Trista Burton ([phone]) updated on patient's clinical status -Code status: FULL code -guarded prognosis given hypotension, septic shock, acute respiratory failure Attestations Medical Necessity Statement*: Patient requires hospitalization for continued management of acute respiratory failure on vent support, septic shock on dual pressor support, broad-spectrum IV antibiotic coverage. Time Spent in Patient Care: Greater than 35 minutes (>than 50% of time spent in counselling and/or direct pt care on unit) . Critical Care Time: The high probability of a clinically significant, sudden or life threatening deterioration of the patient's [respiratory, cardiovascular] system(s) required my full and direct attention, intervention and personal man agement. The critical care time is as shown. 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
[2020-06-05] MEDS: sodium chloride 0.9% 1,000 ML 100 ML IV ×2 (08:56→17:50)
--- NOTE | 2020-06-05 09:02 | USCV_ITS ---
Felton Burton Age: 64 Gender: M : 1955 Exam Date: 06/05/2020 09:30 Ordering Phys: Geno Rodgers MD Technologist: Fátima Allen Exam Location: [facility] – [place] Indication: SEPTIC AND NSTEMI BP: 87 / 59 HR: 103 Rhythm: Sinus Technical Quality: Very technically difficult study MEASUREMENTS (Male / Female) Normal Values 2D ECHO LV Diastolic Diameter PLAX 4.6 cm 4.2 - 5.9 / 3.9 - 5.3 cm LV Systolic Diameter PLAX 2.8 cm IVS Diastolic Thickness 1.1 cm 0.6 - 1.0 / 0.6 - 0.9 cm IVS Systolic Thickness 1.9 cm LVPW Diastolic Thickness 1.6 cm 0.6 - 1.0 / 0.6 - 0.9 cm LVPW Systolic Thickness 1.8 cm LVOT Diameter 2.8 cm LV Ejection Fraction 2D Teich 71.1 % LV Ejection Fraction MOD 2C 57.2 % LV Ejection Fraction 2C AL 55.8 % LA Diameter 3.3 cm LA Width 3.4 cm LA Height 3.3 cm RA Width 3.3 cm RA Height 4.0 cm Aorta at Sinotubular Diameter 3.2 cm M-MODE LV Diastolic Diameter MM 3.6 cm 4.2 - 5.9 / 3.9 - 5.3 cm LV Systolic Diameter MM 2.6 cm LV Ejection Fraction MM Teich 54.2 % IVS Diastolic Thickness MM 0.8 cm 0.6 - 1.0 / 0.6 - 0.9 cm IVS Systolic Thickness MM 0.7 cm LVPW Diastolic Thickness MM 1.0 cm 0.6 - 1.0 / 0.6 - 0.9 cm LVPW Systolic Thickness MM 1.3 cm RV Diastolic Diameter MM 1.1 cm Aortic Annulus Diameter 3.4 cm LA Ao Ratio MM 1.1 MV E Point Septal Separation 0.5 cm DOPPLER AV Peak Velocity 110.0 cm/s LVOT Peak Velocity 53.0 cm/s AV Area Cont Eq vti 3.9 cm squared AV Area Cont Eq pk 2.9 cm squared MV Area PHT 5.6 cm squared Mitral E to A Ratio 1.1 MV E' Velocity 33.5 cm/s Mitral E to MV E' Ratio 3.7 Mitral E to LV E' Lateral Ratio 3.4 Mitral E to LV E' Septal Ratio 4.3 TR Peak Velocity 227.0 cm/s TR Peak Gradient 20.6 mmHg TR Mean Velocity 146.2 cm/s TR Mean Gradient 10.2 mmHg TR Velocity Time Integral 42.8 cm TV Peak E Velocity 60.0 cm/s Right Atrial Pressure 15.0 mmHg Pulmonary Artery Systolic Pressu 35.6 mmHg PV Peak Velocity 67.0 cm/s RV Acceleration Time 0.2 s RV Ejection Time 0.4 s RV AcT/ET 0.5 FINDINGS Left Ventricle Normal left ventricular cavity size. Normal left ventricular systolic function. No regional wall motion abnormalities. Left ventricular ejection fraction is estimated at 55 %. Grade I/IV diastolic dysfunction (abnormal relaxation filling pattern), normal to mildly elevated filling pressures. Right Ventricle The right ventricle is normal in size and function. Right Atrium The right atrium is normal in size. Left Atrium The left atrium is normal in size. Mitral Valve Structurally normal mitral valve without significant stenosis or prolapse. There is no mitral regurgitation. Aortic Valve Structurally normal aortic valve without significant sclerosis or stenosis. There is no aortic regurgitation. Tricuspid Valve Structurally normal tricuspid valve without significant stenosis or regurgitation. Pulmonary artery systolic pressure is normal. Pulmonic Valve Structurally normal pulmonic valve without significant stenosis. There is no pulmonic regurgitation. Pericardium Normal pericardium without effusion. Aorta Normal ascending aorta dimension. CONCLUSIONS 1-Normal left ventricular cavity size. Normal left ventricular systolic function. No regional wall motion abnormalities. Left ventricular ejection fraction is estimated at 55 %. Grade I/IV diastolic dysfunction (abnormal relaxation filling pattern), normal to mildly elevated filling pressures. 2-There is no pericardial effusion. 3-No significant valve abnormalities. 4-Pulmonary artery systolic pressure is within normal limits. 5-Right atrial pressure is around 5 mm of mercury. 6-No significant change since the prior echocardiogram study of 09/02/2018 except patient is tachycardic. Trav Burnette MD (Electronically Signed) Final Date: 05 June 2020 19:17 S
[2020-06-05] MEDS: phenylephrine inj 25 MG in sodium chloride 0.9% 250 ML 48.5 MG IV ×2 (09:10→16:54)
--- NOTE | 2020-06-05 09:21 | PC.CHAP ---
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 pilot plant technician visit [] Patient/Family/Request visit [] Outpatient visit [] Follow-up visit [] Physician referral [] Code/Alert [] Routine visit [] Staff referral [] Actively dying [] Patient sleeping [] Family support [] [] Out of room [] Palliative care [] [] Receiving care in room [] Pre-surgical visit [] Trauma [] Long length of stay [] ICU visit [] Other: Relational/Emotional Strength [] Patient feels connected with others/family/visitors/staff [] Distress [] Loneliness/isolation [] Abandonment Spirituality of Patient [] Person of Gaviota [] Attends Quaker of their [place] [] Believes in Prayer [] Reads Bible or Evangelical materials [] There are Spiritual issues to be addressed 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 Interventions [x] Prayer [] Active listening [] Non-anxious presence [] Spiritual/emotional support [] Crisis/trauma care [] Spiritual counseling [] Bereavement support [] Provided bereavement packet [] Provided Bible/devotional materials [] Provided toy/stuffed animal, coloring book to patient or family member [] Provided Communion [] Anointing/[place] [] Salvation [x] Completed spiritual assessment [] Other: Impact on Illness or Injury [] Angry [] Fearful [] Anxious [] Often cries [] Exhaustion [] Unable to work [] Unable to attend mandaeism [] Unable to walk/stand [] Unable to read [] Unable to drive [] Unable to eat/drink [] Unable to sleep [] Unable to be with family [] Patient intubated [] Other: Summary Time spent with patient
--- NOTE | 2020-06-05 09:57 | PC.NURSE ---
dr. baldwin in.
[2020-06-05] MEDS: norepinephrine 8 MG in dextrose 5 % 500 ML 45.7 MG IV (10:08)
[2020-06-05] MEDS: acetaminophen 650 mg Supp PR (11:00)
[2020-06-05] MEDS: magnesium sulfate premix 2 GM/50 ML PIGGYBACK IV ×2 (11:54→14:09)
[2020-06-05 12:36] LABS: Basophils # 0.1 10^3/uL (0.0-0.1); Basophils % 0.8 %; Eosinophils # 0.1 10^3/uL (0.0-0.8); Eosinophils % 0.4 %; Hematocrit 43.5 % (42.0-52.0); Hemoglobin 13.1 g/dL (11.7-16.6); Lymphocytes # 1.2 10^3/uL (0.8-4.8); Lymphocytes % 9.1 %; Mean Corpuscular HGB Conc 30.1 g/dL (30.0-36.0); Mean Corpuscular Hemoglobin 27.9 pg (28.0-34.0); Mean Corpuscular Volume 92.8 fL (80-94); Mean Platelet Volume 12.3 fL (7.4-10.4); Monocytes # 0.6 10^3/uL (0.2-0.9); Monocytes % 4.4 %; Neutrophils # 10.74 10^3/uL (1.8-7.7); Neutrophils % 83.8 %; Nucleated Red Blood Cells % 0 %; Platelet Count 81 10^3/cmm (130-400); Red Blood Count 4.69 10^6/uL (4.1-5.3); Red Cell Distribution Width 15.7 % (12.1-15.1); White Blood Count 12.8 10^3/uL (4.0-10.0)
[2020-06-05 12:40] LABS: Alanine Aminotransferase 12 U/L (0-41); Albumin Level 2.8 g/dL (3.5-5.2); Alkaline Phosphatase 53 IU/L (40-130); Aspartate Amino Transferase 28 U/L (0-40); Blood Urea Nitrogen 36 mg/dL (8-23); Calcium 7.8 mg/dL (8.5-10.5); Carbon Dioxide 22 mmol/L (22-29); Chloride 109 mmol/L (98-107); Globulin 2.6 g/dL (1.3-4.6); Glomerular Filtration Rate 23.9 mL/min (90-130); Glucose 99 mg/dL (65-115); Magnesium 1.6 mg/dL (1.7-2.3); Osmolality Calculated 300 mOsm/kg (285-295); Sodium 141 mmol/L (136-145); Total Bilirubin 1.8 mg/dL (0.15-1.2); Total Protein 5.4 g/dL (6.6-8.7)
[2020-06-05 17:36] LABS: ABG PCO2 38.4 mmHg (35-45); ABG PH Result 7.39 (7.35-7.45); Base Excess ABG -1.5 mmol/L (-2.0-2.0); HCO3 ABG 23.2 mmol/L (22-26); PO2 ABG 44.7 mmHg (80.0-100.0)
[2020-06-05] MEDS: albumin 12.5 GM/250 ML VIAL IV (19:42)
[2020-06-05] MEDS: levofloxacin-dextrose 5 % 750 MG/150 ML PREMIX 100 MG IV (20:35)
[2020-06-05] MEDS: norepinephrine 8 MG in dextrose 5 % 500 ML 38.1 MG IV (22:14)
[2020-06-06] VITALS (56 sets, daily range): BP systolic 83–136; BP diastolic 53–80; PULSE 66–96; RESP 14–22; TEMP 36.6–38.6; O2SAT 94–99
[2020-06-06] MEDS: piperacillin-tazobactam 3.375 GM in sodium chloride 0.9% (plus) 50 ML IV ×3 (00:41→17:34)
[2020-06-06 03:14] LABS: Hematocrit 39.4 % (42.0-52.0); Hemoglobin 11.9 g/dL (11.7-16.6); Mean Corpuscular HGB Conc 30.2 g/dL (30.0-36.0); Mean Corpuscular Hemoglobin 28.3 pg (28.0-34.0); Mean Corpuscular Volume 93.8 fL (80-94); Mean Platelet Volume 11.8 fL (7.4-10.4); Platelet Count 63 10^3/cmm (130-400); Red Cell Distribution Width 15.9 % (12.1-15.1); White Blood Count 10.4 10^3/uL (4.0-10.0)
[2020-06-06 03:27] LABS: INR 2.96 (0.8-1.2)
[2020-06-06 03:35] LABS: Alanine Aminotransferase 20 U/L (0-41); Albumin Level 2.5 g/dL (3.5-5.2); Alkaline Phosphatase 42 IU/L (40-130); Anion Gap 13.6 (5-19); Aspartate Amino Transferase 77 U/L (0-40); Blood Urea Nitrogen 40 mg/dL (8-23); Calcium 7.6 mg/dL (8.5-10.5); Carbon Dioxide 22 mmol/L (22-29); Chloride 111 mmol/L (98-107); Globulin 2.5 g/dL (1.3-4.6); Glomerular Filtration Rate 23.9 mL/min (90-130); Glucose 97 mg/dL (65-115); Osmolality Calculated 304 mOsm/kg (285-295); Potassium 4.6 mmol/L (3.5-5.1); Sodium 142 mmol/L (136-145); Total Bilirubin 1.3 mg/dL (0.15-1.2)
[2020-06-06 03:55] LABS: Absolute Eosinophils 0.2 10^3/cmm (0.0-0.7); Eosinophils 2 %; Lymphocytes 10 %; Monocytes Absolute 0.1 10^3/cmm (0.1-0.6); Segmented Neutrophils 87 %; Total Cells Counted 100 (0-100)
[2020-06-06 03:56] LABS: Anisocytosis Trace; Platelet Estimate Decreased (Normal)
[2020-06-06 03:57] LABS: ABG PCO2 34.7 mmHg (35-45); ABG PH Result 7.39 (7.35-7.45); Arterial Blood Gas Hematocrit 36.9 % (42-52); Base Excess ABG -3.4 mmol/L (-2.0-2.0); Blood Gas Allen Test Pos; Blood Gas Operator Identificat CAK; Blood Gas Sample Site Radial, left; Blood Gas Sample Type Arterial; Blood Gas Tidal Volume 0.55; Oxygen Device VENT; PO2 ABG 69.3 mmHg (80.0-100.0)
[2020-06-06 03:58] LABS: Magnesium 2.1 mg/dL (1.7-2.3)
[2020-06-06] MEDS: sodium chloride 0.9% 1,000 ML 100 ML IV ×2 (05:17→16:02)
--- NOTE | 2020-06-06 06:00 | XR_ITS ---
WS: [id number] XR chest 1V portable [id number] REASON FOR EXAM: on vent support, pneumonia FINDINGS: Compared to the examination of 06/04/2020 the extent in the density of the infiltrative changes in thi th lungs shows some improvement. The endotracheal tube and nasogastric tube remain properly positioned. No other interval change or new finding. XR/XR chest 1V portable [id number] IMPRESSION: Decreasing density and extent of the infiltrates in both lungs.
--- NOTE | 2020-06-06 07:03 | PC.NURSE ---
fentanyl off to see if pt. will respond more.
--- NOTE | 2020-06-06 08:00 | PC.CHAP ---
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 curing press operator visit [] Patient/Family/Request visit [] Outpatient visit [] Follow-up visit [] Physician referral [] Code/Alert [] Routine visit [] Staff referral [] Actively dying [] Patient sleeping [] Family support [] [] Out of room [] Palliative care [] [] Receiving care in room [] Pre-surgical visit [] Trauma [] Long length of stay [] ICU visit [] Other: Relational/Emotional Strength [] Patient feels connected with others/family/visitors/staff [] Distress [] Loneliness/isolation [] Abandonment Spirituality of Patient [] Person of [place] [] Attends Synagogue of their [place] [] Believes in Prayer [] Reads Bible or Confucianism materials [] There are Spiritual issues to be addressed 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 Interventions [x] Prayer [] Active listening [] Non-anxious presence [] Spiritual/emotional support [] Crisis/trauma care [] Spiritual counseling [] Bereavement support [] Provided bereavement packet [] Provided Bible/devotional materials [] Provided toy/stuffed animal, coloring book to patient or family member [] Provided Communion [] Anointing/[place] [] Salvation [x] Completed spiritual assessment [] Other: Impact on Illness or Injury [] Angry [] Fearful [] Anxious [] Often cries [] Exhaustion [] Unable to work [] Unable to attend scientology [] Unable to walk/stand [] Unable to read [] Unable to drive [] Unable to eat/drink [] Unable to sleep [] Unable to be with family [] Patient intubated [] Other: Summary Time spent with patient
--- NOTE | 2020-06-06 08:11 | PM.PN ---
Subjective Subjective: Interval history: Better urine output overnight, had 700 mL. Renal function unchanged this morning with creatinine at 2.7. Intermittently febrile with a T-max of 101.3F over the past 24 hours, currently afebrile. Down to FiO2 of 40% on ventilator with improved oxygenation on morning ABG. Decreased leukocytosis, weaned off pressor support. Received dose of albumin overnight. Has been off fentanyl since earlier this morning but not really responsive or following commands. Medications: Reviewed: Yes Medication Review Details: Active Medications Generic Name Dose Route Start Last Admin Trade Name Freq PRN Reason Stop Dose Admin Acetaminophen 650 mg 06/04/20 17:48 06/05/20 11:00 Acetaminophen 65 0 Mg Supp MO 650 mg Q6H PRN Administration FEVER Sodium Chloride 1,000 mls @ 100 m ls/hr 06/04/20 14:45 06/06/20 05:17 Sodium Chloride 0.9% IV 100 mls/hr .Q10H JOCELIN Administration Propofol 1,000 mg in 100 m ls @ 0 mls/hr 06/04/20 15:00 06/05/20 06:31 Diprivan IV Infused .Q0M JOCELIN Titration Protocol Per Protocol Fentanyl 1,000 mcg / Sodium 100 mls @ 0 mls/h r 06/04/20 15:15 06/06/20 07:03 Chloride IV 0 mcg/hr .Q0M JOCELIN 0 mls/hr Titration Protocol Per Protocol Norepinephrine Bit artrate 4 mg 254 mls @ 0 mls/h r 06/04/20 15:15 06/04/20 23:24 / Dextrose IV Infused .Q0M JOCELIN Titration Protocol Per Protocol Piperacillin Sod/T azobactam 50 mls @ 12.5 mls /hr 06/05/20 01:00 06/06/20 04:41 Sod 3.375 gm/ So dium Chloride IV Infused Q8H JOCELIN Infusion Protocol Norepinephrine Bit artrate 8 mg 508 mls @ 0 mls/h r 06/04/20 23:15 06/06/20 04:25 / Dextrose IV 0 mcg/min .Q0M JOCELIN 0 mls/hr Titration Protocol Per Protocol Phenylephrine HCl 25 mg/ 252.5 mls @ 0 mls /hr 06/04/20 23:45 06/05/20 21:45 Sodium Chloride IV 0 mcg/min .Q0M JOCELIN 0 mls/hr Titration Protocol Per Protocol Levofloxacin/Dextr ose 750 mg in 150 mls @ 100 mls/hr 06/05/20 20:00 06/05/20 22:15 Levaquin-D5w IV Infused Q48H JOCELIN Infusion Protocol Ondansetron HCl 4 mg 06/04/20 17:48 Ondansetron 2 Mg /Ml Sdv 2 Ml IVP Q6H PRN NAUSEA AND VOMITI NG No Known Allergies Allergy (Verified 10/27/19 14:02) Vitals/I&O/Wt Last Vital Signs Temp 99.0 F 06/06/20 06:00 Pulse 92 06/06/20 06:00 Resp 22 H 06/06/20 08:03 BP 114/74 06/06/20 06:00 Pulse Ox 95 06/06/20 06:00 06/05/20 06/06/20 06/06/20 22:59 06:59 14:59 Intake Total 1812.154 / 3748.332 1170.618 / 4918.950 64.417 / 64.417 Output Total 400 / 400 450 / 850 Balance 1412.154 / 3348.332 720.618 / 4068.950 64.417 / 64.417 Weight last 48 hrs Weight 110.762 kg Weight 100.425 kg Weight 113.398 kg Physical Exam Const: COMMON NORMALS: no acute distress GENERAL APPEARANCE: ill appearing and patient mechanically ventilated OTHER: -minimally responsive though off sedation HENMT: COMMON NORMALS: normocephalic and atraumatic HEAD & SCALP: normocephalic and atraumatic OTHER: -orally intubated, OGT in place, bilious drainage Eye: COMMON NORMALS: conjunctivae normal and no scleral icterus CONJUNCTIVA: Yes conjunctivae normal PUPIL: Yes Pinpoint pupils bilaterally OTHER: -dried purulent drainage on R eyelashes; minimal exudate on L Neck/C-Spine: COMMON NORMALS: full ROM GENERAL: Yes normal visual inspection and Yes trachea midline Resp: COMMON NORMALS: normal respiratory effort, No retractions and No use of accessory muscles EFFORT & INSPECTION: Yes symmetric chest movement and No tachypneic AUSCULTATION: diminished lung sounds OTHER: -on vent support (40%/550/10); ETT-26 cm @ lip -consistently breathing over vent Cardio: COMMON NORMALS: regular rate, regular rhythm, S1 normal heart sound present, S2 normal heart sound present and No murmurs present (Cardio) RATE: regular rate RHYTHM: regular rhythm HEART SOUNDS: S1 normal heart sound present and S2 normal heart sound present GI: COMMON NORMALS: Normal to inspection, nondistended, normoactive bowel sounds present and Soft to palpation PALPATION: Yes Soft to palpation : BLADDER/KIDNEY EXAM: Yes catheter in place Extremity: COMMON NORMALS: normal to inspection, full ROM, no clubbing, cyanosis or edema and no pedal edema Neuro: OTHER: -sedated -unable to follow commands including opening his eyes, grasping when asked to Psych: OTHER: -sedated Skin: COMMON NORMALS: no rashes or lesions noted, no jaundice, no petechiae and no mottling GENERAL SKIN EXAM: no rashes or lesions noted NAILS: yellow and thickened Urinary Catheter Management^: Domínguez: Cath Placed During This Visit: yes Reason for Continuing Indwelling Catheter: Accurate Measurement of Urinary Output in Critically Ill Patients Urinary Catheter Date of Insertion: 06/04/20 Urinary Catheter Time of Insertion: 16:26 Data : 06/06/20 03:00 06/06/20 03:00 Micro: Microbiology 06/05/20 10:55 Blood Culture - Preliminary Blood SPECIMEN COLLECTED 06/05/20 10:40 Blood Culture - Preliminary Blood SPECIMEN COLLECTED 06/04/20 15:40 Gram Stain - Final Sputum - Endotracheal Tube Aspirate Sputum Culture - Preliminary A&P Assessment and plan (1) Acute respiratory failure with hypoxia: -Intubated in the ER secondary to noted altered mental status and respiratory distress -Remains on ventilator support, sedation turned off earlier this AM but continues to be minimally responsive; suspect that this is due to renal impairment and decreased renal clearance of fentanyl -Weaning trial when appropriate -Daily ABG, chest x-ray while on vent support -Noted improvement in infiltrates on imaging today -Given reported preceding emesis there is continued concern for aspiration pneumonia -Continue broad-spectrum IV antibiotic coverage with Zosyn, Levaquin; no vanc due to thrombocytopenia -Rapid COVID-19 testing negative; off isolation precautions -sputum culture-normal cindy (prelim), gram stain rare GPC -blood cultures pending -Echo: EF=55%, G1DD, normal PSP, no RWMA Status: Acute (2) Aspiration pneumonitis: -as noted above Status: Acute (3) Septic shock: -septic shock as evidenced by lactic acidosis, fever, hypotension, tachycardia, tachypnea, WILBERT, acute respiratory failure -concern for hypovolemia given emesis -on IVF, weaned off pressor support, on broad spectrum IV antibiotics -UA negative Status: Acute (4) Lactic acidosis: -as noted above Status: Acute (5) Upper GI bleed: -with additional history, dark color of emesis likely cola vs. chocolate ice cream -bilious drainage from OGT currently; FOBT negative -continue to monitor H/H closely -AC on hold -INR-2.96; goal is 2-3 -Surgery consult by Dr. Romo appreciated Status: Acute (6) Antiphospholipid antibody syndrome: -on AC with coumadin which is currently on hold due to concern for upper GI bleed Status: Chronic (7) Pulmonary embolism: -known prior hx of PE -on AC with coumadin Status: Chronic Qualifiers: Acute cor pulmonale presence: unspecified Chronicity: chronic Pulmonary embolism type: unspecified Qualified Code(s): I27.82 - Chronic pulmonary embolism (8) DVT (deep venous thrombosis): -s/p IVC filter Status: Chronic Qualifiers: Affected thrombotic vein of extremity: unspecified vein of extremity Chronicity: chronic DVT location: lower extremity Laterality: unspecified laterality Qualified Code(s): I82.509 - Chronic embolism and thrombosis of unspecified deep veins of unspecified lower extremity Additional A&P Information -noted troponin elevation with significant delta; likely type II secondary to septic shock. Echo noted above; telemetry monitoring -hx of tibial artery thrombosis s/p stenting -suspected dementia, likely vascular given prior hx of CVA -WILBERT on CKD stage 3; baseline Cr is around 1.3-1.4; continue to monitor renal function, avoid nephrotoxins, renally dose meds. Noted improved urine output overnight; may need nephrology evaluation if continued renal impairment and decreased urine output; renal US with noted bilateral renal cysts, no hydronephrosis -Acute encephalopathy; noted altered mental status per report on admission. Currently on sedation, UDS negative, EtOH negative -Chronic thrombocytopenia; platelet count appears to be at baseline -Hypoalbuminemia; received dose of albumin x 1; additional doses if needed -Chronic diastolic CHF; Echo reported above, no acute exacerbation, no diuretics due to renal impairment -NPO; may need tube feeds if need for continued ventilation -GI ppx with PPI -DVT ppx with SCDs -Dispo: home; Trista Burton ([phone]) updated on patient's clinical status -Code status: FULL code -guarded prognosis given hypotension, septic shock, acute respiratory failure Attestations Medical Necessity Statement*: Patient requires hospitalization for continued management of critical illness, remains on ventilator support, broad-spectrum IV antibiotics. Time Spent in Patient Care: Greater than 35 minutes (>than 50% of time spent in counselling and/or direct pt care on unit). Critical Care Time: The high probability of a clinically significant, sudden or life threatening deterioration of the patient's [cardiovascular, respiratory] system(s) required my full and direct attention, intervention and personal management. The critical care time is as shown. This time is in addition to time spent performing any reported procedures but includes the following: [x] Data and vital sign review and interpretation [x] Patient assessment, examination and intervention [x] Documentation [x] Medication orders and management Critical Care Time (min): 25 Coding Level of Care Code Acute Inspector Watch Train for Chg Fwd Exam Comprehensive Diagnoses Acute respiratory failure with hypoxia J96.01 Aspiration pneumonitis J69.0 Septic shock A41.9; R65.21 Lactic acidosis E87.2 Upper GI bleed K92.2 Antiphospholipid antibody syndrome D68.61 Pulmonary embolism I27.82 Acute cor pulmonale presence: unspecified Chronicity: chronic Pulmonary embolism type: unspecified DVT (deep venous thrombosis) I82.509 Affected thrombotic vein of extremity: unspecified vein of extremity Chronicity: chronic DVT location: lower extremity Laterality: unspecified laterality
--- NOTE | 2020-06-06 12:16 | PC.RESP ---
PULMONARY REHAB INFORMATION SENT TO PATIENT.
[2020-06-06] MEDS: erythromycin Op Oint 3.5 gm Tube 1 APPLIC EYE-BOTH ×3 (13:55→21:00)
--- NOTE | 2020-06-06 15:40 | PC.NURSE ---
having trigeminal pvcs
--- NOTE | 2020-06-06 16:12 | PC.NURSE ---
during bath note d.t.i. to left buttock/hip. was not there yesterday,
--- NOTE | 2020-06-06 16:40 | ECG_ITS ---
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1955 Requested By: Geno Rodgers Order Number: [id number] Reading MD: NEEL MARCELINO Measurements Intervals [place] Rate: 90 P: 25 PA: 220 QRS: -63 QRSD: 125 T: 54 QT: 327 QTc: 400 Interpretive Statements SINUS RHYTHM WITH FIRST DEGREE AV BLOCK INFERIOR MYOCARDIAL INFARCTION [40+ ms Q WAVE AND/OR ST/T ABNORMALITY IN II/aVF], PROBABLY OLD Compared to ECG 06/04/2020 20:46:27 First degree AV block now present Ventricular premature complex(es) no longer present Myocardial infarct finding still present Electronically Signed On 06-08-2020 15:25:56 SURFBOARD MAKER by NEEL MARCELINO [email or web address]
[2020-06-06] MEDS: metoprolol tartrate 25 mg Tablet 12.5 MG PO (17:31)
[2020-06-06 17:32] LABS: Troponin T (5th) Once 55 ng/L (0-15)
[2020-06-06 18:06] LABS: Anion Gap 13.3 (5-19); Blood Urea Nitrogen 38 mg/dL (8-23); Carbon Dioxide 22 mmol/L (22-29); Chloride 113 mmol/L (98-107); Glomerular Filtration Rate 27.4 mL/min (90-130); Glucose 96 mg/dL (65-115); Magnesium 2.2 mg/dL (1.7-2.3); Osmolality Calculated 307 mOsm/kg (285-295); Potassium 4.3 mmol/L (3.5-5.1); Sodium 144 mmol/L (136-145)
--- NOTE | 2020-06-06 18:08 | PC.NURSE ---
dr. baldwin in. trigeminal pvcs noted, labs and ekg done has had occ to rare pvc earlier today and became more frequent throughout the day.
--- NOTE | 2020-06-06 19:11 | US_ITS ---
WS: [id number] RENAL ULTRASOUND HISTORY: acute renal failure, oliguria COMPARISON: 06/04/2020 TECHNIQUE: 2-D and color Doppler imaging of the kidney submitted. Limited quality examination. Right kidney: 12.1 cm x 5.5 cm x 8.0 cm. Normal size kidney. The entire kidney is poorly visualized. Increased fat in the renal pelvis. There is an exophytic low-attenuation mass in the mid kidney measuring 2.6 x 2.4 x 2.6 cm. This mass was no floyd on prior CT consistent with a cyst. There are numerous cysts within the RIGHT kidney seen by CT. These are not all identified by ultrasound. No hydronephrosis. Left kidney: 11.6 cm x 6.6 cm x 6.4 cm. Normal size kidney with increased renal fat. Hypoechoic mass from the upper pole measures 2.5 x 2.5 x 2.4 cm. Consistent with a cyst as seen on CT. Aorta: Normal. Urinary Bladder: Nondistended bladder. Patient has a Domínguez catheter. US/US renal BI* [id number] IMPRESSION: 1. Limited evaluation of the kidneys due to body habitus. 2. No hydronephrosis. 3. Bilateral renal masses. These masses were noted to be cysts on a prior CT. No solid mass.
--- NOTE | 2020-06-06 21:16 | CTR_ITS ---
PROCEDURE INFORMATION: Exam: CT Head Without Contrast Exam date and time: 06/06/2020 2:51 AM Age: 64 years old Clinical indication: Other: Decreased responsiveness TECHNIQUE: Imaging protocol: Computed tomography of the head without contrast. Radiation optimization: All CT scans at this facility use at least one of these dose optimization techniques: automated exposure control; mA and/or kV adjustment per patient size (includes targeted exams where dose is matched to clinical indication); or iterative reconstruction. COMPARISON: CT head wo con* [id number] 06/04/2020 4:08 PM RADIATION DOSE METRICS: Total DLP (mGy-cm): 1209.09 FINDINGS: Brain: No acute intracranial hemorrhage or mass effect. There is decreased attenuation in the periventricular white matter, likely from microvascular disease. No definite acute infarct by CT. MRI could be more sensitive/specific for detection, as clinically directed. Cerebral ventricles: Ventricle size is normal for age. Bones/joints: No definite acute skull fracture. Paranasal sinuses: Included paranasal sinuses are essentially clear. Mastoid air cells: No significant acute finding. Vasculature: Vascular calcifications in the internal carotid arteries. CT/CT head wo con* [id number] IMPRESSION: 1. No acute intracranial hemorrhage or mass effect. 2. Changes of microvascular disease. 3. No definite acute infarct by CT, see above. 4. Other findings discussed above. Radiation Dose CTDIVOL = (mGy): DLP = 1209.09 (mGy-cm)
[2020-06-07] VITALS (57 sets, daily range): BP systolic 87–126; BP diastolic 54–86; PULSE 53–89; RESP 10–22; TEMP 36.3–37.4; O2SAT 92–100
[2020-06-07] MEDS: piperacillin-tazobactam 3.375 GM in sodium chloride 0.9% (plus) 50 ML IV ×3 (01:22→17:18)
[2020-06-07 05:35] LABS: Basophils # 0.1 10^3/uL (0.0-0.1); Basophils % 0.6 %; Eosinophils # 0.1 10^3/uL (0.0-0.8); Eosinophils % 1.4 %; Hematocrit 35.5 % (42.0-52.0); Hemoglobin 10.7 g/dL (11.7-16.6); Lymphocytes # 0.6 10^3/uL (0.8-4.8); Lymphocytes % 6.1 %; Mean Corpuscular HGB Conc 30.1 g/dL (30.0-36.0); Mean Corpuscular Hemoglobin 28.8 pg (28.0-34.0); Mean Corpuscular Volume 95.7 fL (80-94); Mean Platelet Volume 12.8 fL (7.4-10.4); Monocytes # 0.4 10^3/uL (0.2-0.9); Monocytes % 3.9 %; Neutrophils # 8.78 10^3/uL (1.8-7.7); Neutrophils % 87.4 %; Nucleated Red Blood Cells % 0 %; Platelet Count 53 10^3/cmm (130-400); Red Blood Count 3.71 10^6/uL (4.1-5.3); Red Cell Distribution Width 15.9 % (12.1-15.1)
[2020-06-07 05:52] LABS: Alanine Aminotransferase 22 U/L (0-41); Albumin Level 2.4 g/dL (3.5-5.2); Alkaline Phosphatase 86 IU/L (40-130); Anion Gap 13.3 (5-19); Aspartate Amino Transferase 76 U/L (0-40); Blood Urea Nitrogen 34 mg/dL (8-23); Carbon Dioxide 21 mmol/L (22-29); Chloride 114 mmol/L (98-107); Globulin 2.7 g/dL (1.3-4.6); Glucose 91 mg/dL (65-115); Osmolality Calculated 305 mOsm/kg (285-295); Potassium 4.3 mmol/L (3.5-5.1); Sodium 144 mmol/L (136-145); Total Protein 5.1 g/dL (6.6-8.7)
--- NOTE | 2020-06-07 06:00 | XRR_ITS ---
PROCEDURE INFORMATION: Exam: XR Chest, 1 View Exam date and time: 06/07/2020 2:51 AM Age: 64 years old Clinical indication: Shortness of breath; Additional info: On vent support TECHNIQUE: Imaging protocol: XR of the chest Views: 1 view. COMPARISON: CR XR chest 1V portable [id number] 06/06/2020 5:41 AM FINDINGS: Tubes, catheters and devices: ET tube present, tip about 2 cm above the bessy. NG tube present, passing beneath the diaphragm, tip likely in the stomach, not significantly changed. Lungs: No definite CHF/pulmonary edema. Poor inspiration somewhat limits evaluation, especially of the lung bases. Worsening right upper and mid lung opacities, suspicious for pneumonia. Previously seen left lower lung opacities have improved in the interval. Pleural space: No visible pneumothorax. No definite pleural fluid. Heart/Mediastinum: Heart size is within normal limits. Bones/joints: No significant acute finding. XR/XR chest 1V portable [id number] IMPRESSION: 1. Worsening right upper and mid lung opacities, suspicious for pneumonia. 2. Previously seen left lower lung opacities have improved in the interval. 3. Other findings discussed above.
[2020-06-07 06:04] LABS: Thyroid Stimulating Hormone 1.25 uIU/mL (0.27-4.20)
[2020-06-07 08:25] LABS: Magnesium 2.2 mg/dL (1.7-2.3)
--- NOTE | 2020-06-07 08:39 | PM.PN ---
Subjective Subjective: Interval history: Patient remains on ventilator support, hemodynamically stable, febrile with a T-max of 101.5 F, had 700 mL urine output overnight. Noted resolved leukocytosis, improvement in renal function. Chest x-ray with reported worsening opacities in the right upper and right middle lobes. Coughs intermittently, flutters his eyes but does not open them nor grasp fingers when asked. He remains off sedation. Repeat CT head last night unremarkable. Medications: Reviewed: Yes Medication Review Details: Active Medications Generic Name Dose Route Start Last Admin Trade Name Freq PRN Reason Stop Dose Admin Acetaminophen 650 mg 06/04/20 17:48 06/05/20 11:00 Acetaminophen 65 0 Mg Supp NM 650 mg Q6H PRN Administration FEVER Bumetanide 1 mg 06/07/20 08:38 Bumetanide 0.25 Mg/Ml Sdv 4 Ml IV 06/07/20 08:39 ONCE ONE Erythromycin 1 applic 06/06/20 13:00 06/06/20 21:00 Erythromycin Op Oint 3.5 Gm Tube EYE-BOTH 1 applic QID JOCELIN Administration Protocol Sodium Chloride 1,000 mls @ 50 ml s/hr 06/04/20 14:45 06/06/20 16:02 Sodium Chloride 0.9% IV 100 mls/hr .Q20H JOCELIN Administration Fentanyl 1,000 mcg / Sodium 100 mls @ 0 mls/h r 06/04/20 15:15 06/06/20 07:03 Chloride IV 0 mcg/hr .Q0M JOCELIN 0 mls/hr Titration Protocol Per Protocol Piperacillin Sod/T azobactam 50 mls @ 12.5 mls /hr 06/05/20 01:00 06/07/20 01:22 Sod 3.375 gm/ So dium Chloride IV 12.5 mls/hr Q8H JOCELIN Administration Protocol Levofloxacin/Dextr ose 750 mg in 150 mls @ 100 mls/hr 06/05/20 20:00 06/05/20 22:15 Levaquin-D5w IV Infused Q48H JOCELIN Infusion Protocol Metronidazole 500 mg in 100 mls @ 100 mls/hr 06/07/20 09:00 Flagyl Iv IV Q8H JOCELIN Protocol Metoprolol Tartrat e 12.5 mg 06/06/20 18:00 06/06/20 17:31 Metoprolol Tartr ate 25 Mg Tablet PO 12.5 mg BID JOCELIN Administration Ondansetron HCl 4 mg 06/04/20 17:48 Ondansetron 2 Mg /Ml Sdv 2 Ml IVP Q6H PRN NAUSEA AND VOMITI NG No Known Allergies Allergy (Verified 10/27/19 14:02) Vitals/I&O/Wt Last Vital Signs Temp 101.5 F H 06/06/20 19:00 Pulse 62 06/07/20 06:00 Resp 12 06/07/20 08:10 BP 106/65 06/07/20 06:30 Pulse Ox 99 06/07/20 06:30 06/06/20 06/07/20 06/07/20 22:59 06:59 14:59 Intake Total 1050 / 1164.417 Output Total 850 / 850 450 / 1300 Balance 200 / 314.417 -450 / -135.583 Weight last 48 hrs Weight 110.762 kg Physical Exam Const: COMMON NORMALS: no acute distress GENERAL APPEARANCE: ill appearing and patient mechanically ventilated OTHER: -minimally responsive though off sedation HENMT: COMMON NORMALS: normocephalic and atraumatic HEAD & SCALP: normocephalic and atraumatic OTHER: -orally intubated, OGT in place, bilious drainage Eye: COMMON NORMALS: conjunctivae normal and no scleral icterus CONJUNCTIVA: Yes conjunctivae normal PUPIL: Yes Pinpoint pupils bilaterally OTHER: -dried purulent drainage on R eyelashes; minimal exudate on L; both improved Neck/C-Spine: COMMON NORMALS: full ROM GENERAL: Yes normal visual inspection and Yes trachea midline Resp: COMMON NORMALS: normal respiratory effort, No retractions and No use of accessory muscles EFFORT & INSPECTION: Yes symmetric chest movement and No tachypneic AUSCULTATION: diminished lung sounds OTHER: -on vent support (pressure support, 40%); ETT-26 cm @ lip -consistently breathing over vent Cardio: COMMON NORMALS: regular rate, regular rhythm, S1 normal heart sound present, S2 normal heart sound present and No murmurs present (Cardio) RATE: regular rate RHYTHM: regular rhythm HEART SOUNDS: S1 normal heart sound present and S2 normal heart sound present GI: COMMON NORMALS: Normal to inspection, nondistended, normoactive bowel sounds present and Soft to palpation PALPATION: Yes Soft to palpation : BLADDER/KIDNEY EXAM: Yes catheter in place Extremity: COMMON NORMALS: no pedal edema NARRATIVE EXTREMITY EXAM: -edema of bilateral UEs, improving Neuro: OTHER: -sedated -unable to follow commands including opening his eyes, grasping when asked to Psych: OTHER: -sedated Skin: COMMON NORMALS: no rashes or lesions noted, no jaundice, no petechiae and no mottling GENERAL SKIN EXAM: no rashes or lesions noted NAILS: yellow and thickened Urinary Catheter Management^: Domínguez: Cath Placed During This Visit: yes Reason for Continuing Indwelling Catheter: Accurate Measurement of Urinary Output in Critically Ill Patients Urinary Catheter Date of Insertion: 06/04/20 Urinary Catheter Time of Insertion: 16:26 Data : 06/07/20 05:20 06/07/20 05:20 Micro: Microbiology 06/04/20 15:40 Gram Stain - Final Sputum - Endotracheal Tube Aspirate Sputum Culture - Final 06/05/20 10:40 Blood Culture - Preliminary Blood NEGATIVE TO DATE 06/05/20 10:55 Blood Culture - Preliminary Blood NEGATIVE TO DATE A&P Assessment and plan (1) Acute respiratory failure with hypoxia: -Intubated in the ER secondary to noted altered mental status and respiratory distress -Remains on ventilator support, sedation turned off earlier this AM but continues to be minimally responsive; suspect that this is due to renal impairment and decreased renal clearance of fentanyl -Weaning trial when appropriate; weaning process impeded by continued sedation even with discontinuation of meds -Daily ABG, chest x-ray while on vent support -Noted improvement in infiltrates on imaging today -Given reported preceding emesis there is continued concern for aspiration pneumonia -Continue broad-spectrum IV antibiotic coverage with Zosyn, Levaquin; no vanc due to thrombocytopenia. Will add Flagyl due to continued fever -Rapid COVID-19 testing negative; off isolation precautions -sputum culture-normal cindy (prelim), gram stain rare GPC -blood cultures prelim negative -Echo: EF=55%, G1DD, normal PSP, no RWMA Status: Acute (2) Acute encephalopathy: -unclear if this is just infection related but has noted prolonged sedation even after discontinuation of sedatives for about 36 hours, unable to follow commands or do anything purposeful; does have cough and gag reflex when suctioned. Potential that this is related to anoxia given unknown period of decreased responsiveness and aspiration prior to admission -Keep off sedation as much as possible -Treatment of infection as already outlined -No overt neurological deficits or seizure-like activity though difficult to fully evaluate for this given minimal response from patient. Will start on empiric antiepileptic medications in case there is a seizure-like component to this -No clear electrolyte imbalances and noted renal impairment is unlikely to contribute to this level of encephalopathy -TSH within normal limits, check ammonia, folic acid and vitamin B12 levels in a.m. UDS negative, EtOH negative -Imaging has been negative x2 -If continued prolonged sedation will require formal neuro evaluation -Prior baseline per is intermittent confusion due to underlying dementia but otherwise alert and oriented Status: Acute (3) Aspiration pneumonitis: -as noted above Status: Acute (4) Septic shock: -septic shock as evidenced by lactic acidosis, fever, hypotension, tachycardia, tachypnea, WILBERT, acute respiratory failure. Overall this is improving -concern for hypovolemia given emesis -on IVF, weaned off pressor support, on broad spectrum IV antibiotics -UA negative Status: Acute (5) Lactic acidosis: -as noted above Status: Acute (6) Upper GI bleed: -with additional history, dark color of emesis likely cola vs. chocolate ice cream -bilious drainage from OGT currently; FOBT negative -continue to monitor H/H closely -AC on hold -INR-2.80; goal is 2-3 -Surgery consult by Dr. Romo appreciated Status: Acute (7) Antiphospholipid antibody syndrome: -on AC with coumadin which is currently on hold due to concern for upper GI bleed Status: Chronic (8) Pulmonary embolism: -known prior hx of PE -on AC with coumadin Status: Chronic Qualifiers: Acute cor pulmonale presence: unspecified Chronicity: chronic Pulmonary embolism type: unspecified Qualified Code(s): I27.82 - Chronic pulmonary embolism (9) DVT (deep venous thrombosis): -s/p IVC filter Status: Chronic Qualifiers: Affected thrombotic vein of extremity: unspecified vein of extremity Chronicity: chronic DVT location: lower extremity Laterality: unspecified laterality Qualified Code(s): I82.509 - Chronic embolism and thrombosis of unspecified deep veins of unspecified lower extremity Additional A&P Information -noted troponin elevation with significant delta; likely type II secondary to septic shock. Echo noted above; telemetry monitoring -hx of tibial artery thrombosis s/p stenting -suspected dementia, likely vascular given prior hx of CVA -WILBERT on CKD stage 3; baseline Cr is around 1.3-1.4; continue to monitor renal function, avoid nephrotoxins, renally dose meds. Renal US with noted bilateral renal cysts, no hydronephrosis. Improving renal function -Chronic thrombocytopenia; platelet count appears to be at baseline -Hypoalbuminemia; received dose of albumin x 1; additional dose today -Chronic diastolic CHF; Echo reported above, acute exacerbation, will give dose of bumex due to noted edema -NPO; may need tube feeds if need for continued ventilation -GI ppx with PPI -DVT ppx with SCDs -Dispo: home; Trista Burton ([phone]) updated on patient's clinical status -Code status: FULL code -guarded prognosis given hypotension, septic shock, acute respiratory failure Attestations Medical Necessity Statement*: Patient requires hospitalization for continued management of critical illness, remains on ventilator support, broad-spectrum IV antibiotics. Time Spent in Patient Care: Greater than 35 minutes (>than 50% of time spent in counselling and/or direct pt care on unit). Critical Care Time: The high probability of a clinically significant, sudden or life threatening deterioration of the patient's [cardiovascular, respiration, neuro] system(s) required my full and direct attention, intervention and personal management. The critical care time is as shown. 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
[2020-06-07 08:51] LABS: ABG PCO2 39.1 mmHg (35-45); ABG PH Result 7.34 (7.35-7.45); Arterial Blood Gas Hematocrit 34.8 % (42-52); Base Excess ABG -4.2 mmol/L (-2.0-2.0); Blood Gas Sample Site Brachial, right; Blood Gas Sample Type Arterial; HCO3 ABG 21.2 mmol/L (22-26); Oxygen Device VENT
--- NOTE | 2020-06-07 09:25 | PC.NURSE ---
Sister called to get information. She was not on the list. Recommended that she call his .
[2020-06-07] MEDS: albumin 12.5 GM/250 ML VIAL IV (10:24)
[2020-06-07] MEDS: bumetanide 0.25 mg/mL SDV 4 mL 1 MG IV (10:47)
[2020-06-07] MEDS: erythromycin Op Oint 3.5 gm Tube 1 APPLIC EYE-BOTH ×4 (10:47→20:01)
[2020-06-07] MEDS: metoprolol tartrate 25 mg Tablet 12.5 MG PO ×2 (10:48→17:18)
[2020-06-07] MEDS: metroNIDAZOLE IV 500 MG/100 ML PREMIX 100 MG IV ×2 (10:50→17:18)
[2020-06-07] MEDS: sodium chloride 0.9% 1,000 ML 100 ML IV (12:31)
--- NOTE | 2020-06-07 14:20 | PC.SOCIAL ---
IMM Update Pg. 2 of IMM updated and reviewed with patient's over the phone who verbalized understanding.
[2020-06-07] MEDS: levofloxacin-dextrose 5 % 750 MG/150 ML PREMIX 100 MG IV (19:41)
--- NOTE | 2020-06-07 21:12 | PC.NURSE ---
Patient resting in bed with eyes closed. Sedation still off. Patient does have rhonchi present in bilateral lobes in lungs and suctioned accordingly. Patient's BS are hypoactive in all quadrants. Patient is still intubated. VS are WNL. Patient will flutter eyes when spoken too and can squeeze hand when asked to. Continue care.
[2020-06-08] VITALS (49 sets, daily range): BP systolic 87–129; BP diastolic 53–78; PULSE 50–68; RESP 10–20; TEMP 36.6–37.7; O2SAT 95–100
[2020-06-08] MEDS: metroNIDAZOLE IV 500 MG/100 ML PREMIX 100 MG IV ×3 (00:01→18:32)
[2020-06-08] MEDS: piperacillin-tazobactam 3.375 GM in sodium chloride 0.9% (plus) 50 ML IV ×3 (00:01→18:47)
--- NOTE | 2020-06-08 01:54 | PC.NURSE ---
Mental Status patient opened eyes to verbal stimuli. Following commands by gripping when asked and nods head yes he can hear me. Pt is calm and tolerating ventilator well without sedation at this time. Observed coughing and gagging when oral care and suctioning.
--- NOTE | 2020-06-08 03:21 | PC.NURSE ---
Bright red blood noted in OG suction tubing. Suction turned off and notified Dr. Byrd of condition and received new orders for Protonix 40mg IVP q 12hrs. Continue care.
[2020-06-08] MEDS: pantoprazole 40 mg SDV IVP ×2 (03:26→15:38)
[2020-06-08 04:45] LABS: Basophils % 0.5 %; Eosinophils # 0.1 10^3/uL (0.0-0.8); Eosinophils % 2.4 %; Hematocrit 31.4 % (42.0-52.0); Hemoglobin 9.6 g/dL (11.7-16.6); Lymphocytes # 0.7 10^3/uL (0.8-4.8); Lymphocytes % 11.4 %; Mean Corpuscular HGB Conc 30.6 g/dL (30.0-36.0); Mean Corpuscular Hemoglobin 28.2 pg (28.0-34.0); Mean Corpuscular Volume 92.1 fL (80-94); Mean Platelet Volume 12.9 fL (7.4-10.4); Monocytes # 0.4 10^3/uL (0.2-0.9); Monocytes % 6.6 %; Neutrophils # 4.65 10^3/uL (1.8-7.7); Neutrophils % 78.3 %; Nucleated Red Blood Cells % 0 %; Platelet Count 55 10^3/cmm (130-400); Red Blood Count 3.41 10^6/uL (4.1-5.3); Red Cell Distribution Width 15.7 % (12.1-15.1); White Blood Count 5.9 10^3/uL (4.0-10.0)
[2020-06-08 05:18] LABS: Alanine Aminotransferase 18 U/L (0-41); Albumin Level 2.4 g/dL (3.5-5.2); Alkaline Phosphatase 64 IU/L (40-130); Anion Gap 15.5 (5-19); Aspartate Amino Transferase 50 U/L (0-40); Blood Urea Nitrogen 27 mg/dL (8-23); Carbon Dioxide 21 mmol/L (22-29); Chloride 111 mmol/L (98-107); Globulin 2.8 g/dL (1.3-4.6); Glomerular Filtration Rate 40.8 mL/min (90-130); Glucose 76 mg/dL (65-115); Osmolality Calculated 302 mOsm/kg (285-295); Potassium 3.5 mmol/L (3.5-5.1); Sodium 144 mmol/L (136-145); Total Bilirubin 0.8 mg/dL (0.15-1.2); Total Protein 5.2 g/dL (6.6-8.7)
[2020-06-08 05:21] LABS: Ammonia 20 umol/L (16-60)
[2020-06-08 05:38] LABS: Vitamin B12 604 pg/mL (232-1245)
[2020-06-08 05:39] LABS: Folate Level 6.3 ng/mL (4.5-32.2)
--- NOTE | 2020-06-08 05:55 | PC.NURSE ---
Patient still resting with eyes closed. Still off of sedation. Patient is responding to verbal commands when asked questions. V/S WNL. Patient does have edema noted to bilateral upper extremities. No s/s of distress. Call light within reach. Continue care.
--- NOTE | 2020-06-08 08:57 | P.PN_ITS ---
Subjective Subjective: Interval history: Overnight, seems to have started to be more responsive including to verbal stimulation. Melvin on pressure support on ventilator, had 800 mL urine output overnight, will give additional diuresis and albumin today. Gradual drop in hemoglobin, continued improvement in renal function and LFTs. Remains off sedation. Will attempt to extubate today if appropriate. Hemodynamically stable, heart rate stable with some minimal intermittent bradycardia, has been afebrile x 24 hours. Seen several times today, able to open his eyes when asked and attempts to grasp fingers. Overall, edema improved. Medications: Reviewed: Yes Medication Review Details: Active Medications Generic Name Dose Route Start Last Admin Trade Name Freq PRN Reason Stop Dose Admin Acetaminophen 650 mg 06/04/20 17:48 06/05/20 11:00 Acetaminophen 65 0 Mg Supp CO 650 mg Q6H PRN Administration FEVER Bumetanide 1 mg 06/08/20 09:00 Bumetanide 0.25 Mg/Ml Sdv 4 Ml IV Q12H JOCELIN Erythromycin 1 applic 06/06/20 13:00 06/07/20 20:01 Erythromycin Op Oint 3.5 Gm Tube EYE-BOTH 1 applic QID JOCELIN Administration Protocol Piperacillin Sod/T azobactam 50 mls @ 12.5 mls /hr 06/05/20 01:00 06/08/20 00:01 Sod 3.375 gm/ So dium Chloride IV 12.5 mls/hr Q8H JOCELIN Administration Protocol Levofloxacin/Dextr ose 750 mg in 150 mls @ 100 mls/hr 06/05/20 20:00 06/08/20 01:03 Levaquin-D5w IV Infused Q48H JOCELIN Infusion Protocol Metronidazole 500 mg in 100 mls @ 100 mls/hr 06/07/20 09:00 06/08/20 01:02 Flagyl Iv IV Infused Q8H JOCELIN Infusion Protocol Levetiracetam 500 mg/ Sodium 105 mls @ 420 mls /hr 06/07/20 20:00 06/08/20 00:02 Chloride IV Infused Q12H JOCELIN Infusion Albumin Human 12.5 gm in 250 ml s @ 300 mls/hr 06/08/20 08:56 Albumin IV 06/08/20 09:45 ONCE ONE Metoprolol Tartrat e 12.5 mg 06/06/20 18:00 06/07/20 17:18 Metoprolol Tartr ate 25 Mg Tablet PO 12.5 mg BID JOCELIN Administration Ondansetron HCl 4 mg 06/04/20 17:48 Ondansetron 2 Mg /Ml Sdv 2 Ml IVP Q6H PRN NAUSEA AND VOMITI NG Pantoprazole Sodiu m 40 mg 06/08/20 03:30 06/08/20 03:26 Pantoprazole 40 Mg Sdv IVP 40 mg Q12H JOCELIN Administration No Known Allergies Allergy (Verified 10/27/19 14:02) Vitals/I&O/Wt Last Vital Signs Temp 99.0 F 06/08/20 04:00 Pulse 65 06/08/20 08:00 Resp 14 06/08/20 08:28 BP 119/72 06/08/20 08:00 Pulse Ox 97 06/08/20 08:00 06/07/20 06/08/20 06/08/20 22:59 06:59 14:59 Intake Total 370 / 520 355 / 875 Output Total 800 / 1500 Balance 370 / -180 -445 / -625 Weight last 48 hrs Weight 114.419 kg Weight 108.409 kg Physical Exam Const: COMMON NORMALS: no acute distress GENERAL APPEARANCE: ill appearing and patient mechanically ventilated ORIENTATION/CONSCIOUSNESS: Yes awake OTHER: -remains off sedation, improved response to verbal and tactile stimulation HENMT: COMMON NORMALS: normocephalic and atraumatic HEAD & SCALP: normocephalic and atraumatic OTHER: -orally intubated, OGT in place, bilious drainage Eye: COMMON NORMALS: conjunctivae normal and no scleral icterus CONJUNCTIVA: Yes conjunctivae normal PUPIL: Yes Pinpoint pupils bilaterally OTHER: -dried purulent drainage on R eyelashes; minimal exudate on L; both improved Neck/C-Spine: COMMON NORMALS: full ROM GENERAL: Yes normal visual inspection and Yes trachea midline Resp: COMMON NORMALS: normal respiratory effort, No retractions and No use of accessory muscles EFFORT & INSPECTION: Yes symmetric chest movement and No tachypneic AUSCULTATION: diminished lung sounds OTHER: -on vent support (pressure support, 40%); ETT-26 cm @ lip -consistently breathing over vent Cardio: COMMON NORMALS: regular rate, regular rhythm, S1 normal heart sound present, S2 normal heart sound present and No murmurs present (Cardio) RATE: regular rate RHYTHM: regular rhythm HEART SOUNDS: S1 normal heart sound present and S2 normal heart sound present GI: COMMON NORMALS: Normal to inspection, nondistended, normoactive bowel sounds present and Soft to palpation PALPATION: Yes Soft to palpation : BLADDER/KIDNEY EXAM: Yes catheter in place Extremity: COMMON NORMALS: no pedal edema NARRATIVE EXTREMITY EXAM: -edema of bilateral UEs, improving Neuro: COMMON NORMALS: moves all extremities, no focal motor deficits, no s ensory deficits noted and gait normal OTHER: -sedated -better able to follow commands including opening his eyes, grasping when asked to. Seems to fatigue quite easily Psych: OTHER: -intubated Skin: COMMON NORMALS: no jaundice and no petechiae NARRATIVE SKIN EXAM: - deep tissue injury on L hip area GENERAL SKIN EXAM: mottling (particularly on t highs, upper chest) NAILS: yellow and thickened Urinary Catheter Management^: Domínguez: Cath Placed During This Visit: yes Reason for Continuing Indwelling Catheter: Accurate Measurement of Urinary Output in Critically Ill Patients Urinary Catheter Date of Insertion: 06/04/20 Urinary Catheter Time of Insertion: 16:26 Data : 06/08/20 03:30 06/08/20 03:30 A&P Assessment and plan (1) Acute respiratory failure with hypoxia: -Intubated in the ER secondary to noted altered mental status and respiratory distress -Remains on ventilator support, sedation turned off earlier this AM but continues to be minimally responsive; suspect that this is due to renal impairment and decreased renal clearance of fentanyl. Seems to be much more responsive today. -so far weaning process has been impeded by continued sedation even with discontinuation of meds; with improved responsiveness, may attempt to extubate tomorrow -Daily ABG, chest x-ray while on vent support -Noted improvement in infiltrates on imaging today -Given reported preceding emesis there is continued concern for aspiration pneumonia -Continue broad-spectrum IV antibiotic coverage with Zosyn, Levaquin, Flagyl; no vanc due to thrombocytopenia. -Rapid COVID-19 testing negative; off isolation precautions -sputum culture-normal cindy (prelim), gram stain rare GPC -blood cultures prelim negative -Echo: EF=55%, G1DD, normal PSP, no RWMA Status: Acute (2) Acute encephalopathy: -unclear if this is just infection related but has noted prolonged sedation even after discontinuation of sedatives for about 36 hours, unable to follow commands or do anything purposeful; does have cough and gag reflex when suctioned. Potential that this is related to anoxia given unknown period of decreased responsiveness and aspiration prior to admission -Keep off sedation as much as possible; so far has been off x 72 hrs -Treatment of infection as already outlined -No overt neurological deficits or seizure-like activity though difficult to fully evaluate for this given minimal response from patient. Will start on emp iric antiepileptic medications in case there is a seizure-like component to this -No clear electrolyte imbalances and noted renal impairment is unlikely to contribute to this level of encephalopathy -TSH, ammonia, vitamin B12, folate within normal limits. UDS negative, EtOH negative -Imaging has been negative x2 -If continued prolonged sedation will require formal neuro evaluation -Prior baseline per is intermittent confusion due to underlying dementia but otherwise alert and oriented Status: Acute (3) Aspiration pneumonitis: -as noted above Status: Acute (4) Septic shock: -septic shock as evidenced by lactic acidosis, fever, hypotension, tachycardia, tachypnea, WILBERT, acute respiratory failure. Resolved with hemod ynamic stability, afebrile x 24 hrs, improving renal function -concern for hypovolemia given emesis; resolved -d/c IVF, off pressor support, on broad spectrum IV antibiotics -UA negative Status: Resolved (5) Lactic acidosis: -as noted above Status: Acute (6) Upper GI bleed: -with additional history, dark color of emesis likely cola vs. chocolate ice cream -bilious drainage from OGT currently; FOBT negative -continue to monitor H/H closely -AC on hold -INR-2.80; goal is 2-3 -Surgery consult by Dr. Romo appreciated -on PPI Status: Resolved (7) Antiphospholipid antibody syndrome: -on AC with coumadin which is currently on hold due to concern for upper GI bleed Status: Chronic (8) Pulmonary embolism: -known prior hx of PE -on AC with coumadin Status: Chronic Qualifiers: Acute cor pulmonale presence: unspecified Chronicity: chronic Pulmonary embolism type: unspecified Qualified Code(s): I27.82 - Chronic pulmonary embolism (9) DVT (deep venous thrombosis): -s/p IVC filter Status: Chronic Qualifiers: Affected thrombotic vein of extremity: unspecified vein of extremity Chronicity: chronic DVT location: lower extremity Laterality: unspecified laterality Qualified Code(s): I82.509 - Chronic embolism and thrombosis of unspecified deep veins of unspecified lower extremity Additional A&P Information -noted troponin elevation with significant delta; likely type II secondary to septic shock. Echo noted above; telemetry monitoring -hx of tibial artery thrombosis s/p stenting -suspected dementia, likely vascular given prior hx of CVA -WILBERT on CKD stage 3; baseline Cr is around 1.3-1.4; continue to monitor renal function, avoid nephrotoxins, renally dose meds. Renal US with noted bilateral renal cysts, no hydronephrosis. Improving renal function -Chronic thrombocytopenia; platelet count appears to be at baseline -Hypoalbuminemia; received dose of albumin x 2; additional dose today -Chronic diastolic CHF; Echo reported above, acute exacerbation with noted edema; start on scheduled diuresis with caution (monitor BP, renal function) -NPO; may need tube feeds if need for continued ventilation though with noted risk of further aspiration, otherwise ST evaluation post-extubation -GI ppx with PPI -DVT ppx with SCDs -Dispo: home; Trista Burton ([phone]) updated on patient's clinical status -Code status: FULL code -guarded prognosis given hypotension, septic shock, acute respiratory failure Attestations Medical Necessity Statement*: Patient requires hospitalization for continued management of critical illness, remains on ventilator support with attempt at extubation today, requires IV diuresis, continued monitoring of hemodynamic and respiratory status as well as renal function. Time Spent in Patient Care: Greater than 35 minutes (>than 50% of time spen t in counselling and/or direct pt care on unit) . Critical Care Time: The high probability of a clinically significant, sudden or life threatening deterioration of the patient's [cardiovascular, respiratory, neuro] system(s) required my full and direct attention, intervention and personal management. The critical care time is as shown. 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
--- NOTE | 2020-06-08 09:00 | XRR_ITS ---
PROCEDURE INFORMATION: Exam: XR Chest, 1 View Exam date and time: 06/08/2020 10:00 AM Age: 64 years old Clinical indication: Dyspnea; Additional info: On vent support TECHNIQUE: Imaging protocol: XR of the chest Views: Frontal portable semiupright view of the chest. COMPARISON: CR XR chest 1V portable [id number] 06/07/2020 3:34 AM FINDINGS: Tubes, catheters and devices: The endotracheal tube tip is approximately 4 cm above the bessy. The feeding tube enters the stomach with the tip in the upper gastric body. EKG leads are present overlying the chest. Lungs: Increased right apical, mid lung zone, medial infrahilar, left lateral mid and lower lung zone pulmonary partial/subsegmental atelectasis. The pulmonary vasculature is normal. Pleural space: No pleural effusion. No pneumothorax. Heart/Mediastinum: The heart is normal in size and contour. Mediastinum: Stable. Bones/joints: Stable. XR/XR chest 1V portable [id number] IMPRESSION: Increased bilateral pulmonary partial/subsegmental atelectasis. Superimposed pneumonitis is difficult to exclude. Clinical correlation is recommended.
[2020-06-08] MEDS: metoprolol tartrate 25 mg Tablet 12.5 MG PO (09:19)
[2020-06-08] MEDS: bumetanide 0.25 mg/mL SDV 4 mL 1 MG IV ×2 (09:19→20:10)
[2020-06-08] MEDS: erythromycin Op Oint 3.5 gm Tube 1 APPLIC EYE-BOTH ×4 (09:42→20:10)
[2020-06-08 09:53] LABS: Base Excess ABG -2.2 mmol/L (-2.0-2.0); Blood Gas Allen Test POS; Blood Gas Operator Identificat GD; Oxygen Device VENT
[2020-06-08 09:54] LABS: Arterial Blood Gas Hematocrit 33.2 % (42-52); Blood Gas Sample Site RT RADIAL; Blood Gas Sample Type ART; Blood Gas Vent Mode PCV+
[2020-06-08] MEDS: albumin 12.5 GM/250 ML VIAL IV (10:19)
--- NOTE | 2020-06-08 11:03 | PC.NURSE ---
Mental status Patient was turned on right side and upon turning he opened his eyes and was able to squeeze left hand on command. Pt was not able to squeeze right hand. Will continue to monitor
--- NOTE | 2020-06-08 16:42 | PC.NURSE ---
Response Patient was able to squeeze both right and left hands when asked and can nod head when asked. Opens eyes spontaneously and with verbal commands.
--- NOTE | 2020-06-08 17:18 | PC.NURSE ---
Toenails Patients toenails on both feet curl around and touch the inferior portions of the toes. Dr. ulloa.
--- NOTE | 2020-06-08 21:48 | PC.NURSE ---
Patient resting in bed with eyes closed. Patient has not responded to staff much so far thus shift. Patient continues to be on mechanical ventilation and off sedation. Lung sounds have improved but patient continues to have large amounts of oral secretions. Patient does have large bruise/pressure injury area on left hip which is beginning to form a blister like covering over area. Continue care.
[2020-06-09] VITALS (48 sets, daily range): BP systolic 86–137; BP diastolic 52–81; PULSE 55–89; RESP 8–22; TEMP 36.7–37.7; O2SAT 92–97
[2020-06-09] MEDS: piperacillin-tazobactam 3.375 GM in sodium chloride 0.9% (plus) 50 ML IV ×3 (00:03→16:22)
[2020-06-09] MEDS: metroNIDAZOLE IV 500 MG/100 ML PREMIX 100 MG IV ×3 (00:04→16:22)
--- NOTE | 2020-06-09 00:12 | PC.NURSE ---
Patient given thorough bed bath and linen change. Patient did open eyes and respond to staff. Patient denies pain. Patient receiving Bumex and output has increased and edema on patients extremities has decreased. Call light within reach. Continue care.
[2020-06-09] MEDS: pantoprazole 40 mg SDV IVP ×2 (02:48→15:25)
[2020-06-09 05:15] LABS: Basophils % 0.7 %; Eosinophils # 0.1 10^3/uL (0.0-0.8); Eosinophils % 2.8 %; Hematocrit 33.5 % (42.0-52.0); Hemoglobin 10.3 g/dL (11.7-16.6); Lymphocytes # 0.7 10^3/uL (0.8-4.8); Lymphocytes % 14.1 %; Mean Corpuscular HGB Conc 30.7 g/dL (30.0-36.0); Mean Corpuscular Hemoglobin 28.6 pg (28.0-34.0); Mean Corpuscular Volume 93.1 fL (80-94); Monocytes # 0.5 10^3/uL (0.2-0.9); Monocytes % 9.8 %; Neutrophils # 3.28 10^3/uL (1.8-7.7); Neutrophils % 71.3 %; Nucleated Red Blood Cells % 0 %; Platelet Count 83 10^3/cmm (130-400); Red Cell Distribution Width 15.9 % (12.1-15.1); White Blood Count 4.6 10^3/uL (4.0-10.0)
[2020-06-09 05:18] LABS: ABG PCO2 37.4 mmHg (35-45); ABG PH Result 7.42 (7.35-7.45); Arterial Blood Gas Hematocrit 37.3 % (42-52); Base Excess ABG -0.3 mmol/L (-2.0-2.0); Blood Gas Sample Site Brachial, right; Blood Gas Sample Type Arterial; Oxygen Device VENT; PO2 ABG 79.3 mmHg (80.0-100.0)
[2020-06-09 05:29] LABS: INR 2.54 (0.8-1.2); Mean Platelet Volume 10.4 fL (7.4-10.4)
--- NOTE | 2020-06-09 06:14 | PC.NURSE ---
Uneventful shift. Patient resting in room with eyes closed. Sedation still off. Patient still responding to staff when aroused and spoken too. Denies pain. Continue care.
[2020-06-09 07:16] LABS: Alanine Aminotransferase 18 U/L (0-41); Albumin Level 2.6 g/dL (3.5-5.2); Alkaline Phosphatase 42 IU/L (40-130); Aspartate Amino Transferase 36 U/L (0-40); Blood Urea Nitrogen 24 mg/dL (8-23); Calcium 8.2 mg/dL (8.5-10.5); Carbon Dioxide 22 mmol/L (22-29); Chloride 108 mmol/L (98-107); Glomerular Filtration Rate 47.1 mL/min (90-130); Glucose 79 mg/dL (65-115); Osmolality Calculated 297 mOsm/kg (285-295); Sodium 142 mmol/L (136-145); Total Bilirubin 0.7 mg/dL (0.15-1.2); Total Protein 5.6 g/dL (6.6-8.7)
[2020-06-09 07:24] LABS: Anion Gap 15.5 (5-19); Potassium 3.5 mmol/L (3.5-5.1)
--- NOTE | 2020-06-09 07:57 | PM.PN ---
Subjective Subjective: Interval history: Seems to be following commands more consistently today, will plan on extubation if possible. Had 1750 mL urine output overnight, hemodynamically stable, heart rate in the 50-60 range, afebrile though spiked a low-grade temp of 99.9 F around midnight. Stable hemoglobin at 10.3, continued improvement in renal function. Failed weaning trial this morning so placed back on MMV. Re-attempted weaning trial this afternoon which patient failed again so back on support and remains on ventilator. Patient's was able to come and visit this afternoon, updated at bedside. Patient has gradually been more and more responsive as the day has worn on, seems to have increased secretions today requiring frequent suctioning. Has had more coughing spells. Medications: Reviewed: Yes Medication Review Details: Active Medications Generic Name Dose Route Start Last Admin Trade Name Freq PRN Reason Stop Dose Admin Acetaminophen 650 mg 06/04/20 17:48 06/05/20 11:00 Acetaminophen 65 0 Mg Supp W[place] 650 mg Q6H PRN Administration FEVER Bumetanide 1 mg 06/08/20 09:00 06/08/20 20:10 Bumetanide 0.25 Mg/Ml Sdv 4 Ml IV 1 mg Q12H JOCELIN Administration Erythromycin 1 applic 06/06/20 13:00 06/08/20 20:10 Erythromycin Op Oint 3.5 Gm Tube EYE-BOTH 1 applic QID JOCELIN Administration Protocol Piperacillin Sod/T azobactam 50 mls @ 12.5 mls /hr 06/05/20 01:00 06/09/20 00:03 Sod 3.375 gm/ So dium Chloride IV 12.5 mls/hr Q8H JOCELIN Administration Protocol Levofloxacin/Dextr ose 750 mg in 150 mls @ 100 mls/hr 06/05/20 20:00 06/08/20 01:03 Levaquin-D5w IV Infused Q48H JOCELIN Infusion Protocol Metronidazole 500 mg in 100 mls @ 100 mls/hr 06/07/20 09:00 06/09/20 02:16 Flagyl Iv IV Infused Q8H JOCELIN Infusion Protocol Levetiracetam 500 mg/ Sodium 105 mls @ 420 mls /hr 06/07/20 20:00 06/08/20 20:10 Chloride IV Infused Q12H JOCELIN Infusion Metoprolol Tartrat e 12.5 mg 06/06/20 18:00 06/08/20 18:27 Metoprolol Tartr ate 25 Mg Tablet PO Not Given BID JOCELIN Ondansetron HCl 4 mg 06/04/20 17:48 Ondansetron 2 Mg /Ml Sdv 2 Ml IVP Q6H PRN NAUSEA AND VOMITI NG Pantoprazole Sodiu m 40 mg 06/08/20 03:30 06/09/20 02:48 Pantoprazole 40 Mg Sdv IVP 40 mg Q12H JOCELIN Administration No Known Allergies Allergy (Verified 10/27/19 14:02) Vitals/I&O/Wt Last Vital Signs Temp 98.2 F 06/09/20 04:00 Pulse 57 L 06/09/20 06:00 Resp 22 H 06/09/20 06:00 BP 99/59 06/09/20 06:00 Pulse Ox 96 06/09/20 06:00 06/08/20 06/09/20 06/09/20 22:59 06:59 14:59 Intake Total 205 / 1710 150 / 1860 Output Total 700 / 1700 1800 / 3500 Balance -495 / 10 -1650 / -1640 Weight last 48 hrs Weight 112.491 kg Weight 114.419 kg Physical Exam Const: COMMON NORMALS: no acute distress GENERAL APPEARANCE: ill appearing and patient mechanically ventilated OTHER: -remains off sedation, improved response to verbal and tactile stimulation HENMT: COMMON NORMALS: normocephalic and atraumatic HEAD & SCALP: normocephalic and atraumatic OTHER: -orally intubated, OGT in place, bilious drainage Eye: COMMON NORMALS: conjunctivae normal and no scleral icterus CONJUNCTIVA: Yes conjunctivae normal PUPIL: Yes Pinpoint pupils bilaterally OTHER: -dried purulent drainage on R eyelashes; minimal exudate on L; both improved Neck/C-Spine: COMMON NORMALS: full ROM GENERAL: Yes normal visual inspection and Yes trachea midline Resp: COMMON NORMALS: normal respiratory effort, No retractions and No use of accessory muscles EFFORT & INSPECTION: Yes symmetric chest movement and No tachypneic AUSCULTATION: diminished lung sounds OTHER: -on vent support (30%/500/6); ETT-26 cm @ lip -consistently breathing over vent Cardio: COMMON NORMALS: regular rate, regular rhythm, S1 normal heart sound present, S2 normal heart sound present and No murmurs present (Cardio) RATE: regular rate RHYTHM: regular rhythm HEART SOUNDS: S1 normal heart sound present and S2 normal heart sound present GI: COMMON NORMALS: Normal to inspection, nondistended, normoactive bowel sounds present and Soft to palpation PALPATION: Yes Soft to palpation : BLADDER/KIDNEY EXAM: Yes catheter in place Extremity: COMMON NORMALS: no pedal edema NARRATIVE EXTREMITY EXAM: -edema of bilateral UEs, improving Neuro: COMMON NORMALS: moves all extremities, no focal motor deficits, no sensory deficits noted and gait normal OTHER: -sedated -better able to follow commands including opening his eyes, grasping when asked to. Seems to fatigue quite easily Psych: COMMON NORMALS: mental status grossly normal, Normal thought process present, cooperative, normal affect and speech normal SPEECH: Yes normal speech THOUGHT PROCESS: Normal thought process present OTHER: -intubated Skin: COMMON NORMALS: no jaundice and no petechiae NARRATIVE SKIN EXAM: -deep tissue injury on L hip area GENERAL SKIN EXAM: mottling (particularly on thighs, upper chest) NAILS: yellow and thickened Urinary Catheter Management^: Domínguez: Cath Placed During This Visit: yes Reason for Continuing Indwelling Catheter: Accurate Measurement of Urinary Output in Critically Ill Patients Urinary Catheter Date of Insertion: 06/04/20 Urinary Catheter Time of Insertion: 16:26 Data : 06/09/20 04:17 06/09/20 06:43 A&P Assessment and plan (1) Acute respiratory failure with hypoxia: -Intubated in the ER secondary to noted altered mental status and respiratory distress -Remains on ventilator support, sedation turned off earlier this AM but continues to be minimally responsive; suspect that this is due to renal impairment and decreased renal clearance of fentanyl. Seems to be much more responsive today. -so far weaning process has been impeded by continued sedation even with discontinuation of meds; with improved responsiveness, weaning trial attempted, failed twice today, will try again tomorrow -Daily ABG, chest x-ray while on vent support -Noted improvement in infiltrates on imaging (06/08) -Given reported preceding emesis there is continued concern for aspiration pneumonia -Continue broad-spectrum IV antibiotic coverage with Zosyn, Levaquin, Flagyl; no vanc due to thrombocytopenia. -Rapid COVID-19 testing negative; off isolation precautions -sputum culture-normal cindy (prelim), gram stain rare GPC -blood cultures prelim negative -Echo: EF=55%, G1DD, normal PSP, no RWMA Status: Acute (2) Acute encephalopathy: -unclear if this is just infection related but has noted prolonged sedation even after discontinuation of sedatives for about 36 hours, unable to follow commands or do anything purposeful; does have cough and gag reflex when suctioned. Potential that this is related to anoxia given unknown period of decreased responsiveness and aspiration prior to admission -Keep off sedation as much as possible; so far has been off x > 72 hrs -Treatment of infection as already outlined -No overt neurological deficits or seizure-like activity though difficult to fully evaluate for this given minimal response from patient. On empiric antiepileptic medications in case there is a seizure-like component to this -No clear electrolyte imbalances and noted renal impairment is unlikely to contribute to this level of encephalopathy -TSH, ammonia, vitamin B12, folate within normal limits. UDS negative, EtOH negative -Imaging has been negative x2 -If continued prolonged sedation will require formal neuro evaluation -Prior baseline per is intermittent confusion due to underlying dementia but otherwise alert and oriented Status: Acute (3) Aspiration pneumonitis: -as noted above Status: Acute (4) Septic shock: -septic shock as evidenced by lactic acidosis, fever, hypotension, tachycardia, tachypnea, WILBERT, acute respiratory failure. Resolved with hemodynamic stability, afebrile x 24 hrs, improving renal function -concern for hypovolemia given emesis; resolved -off IVF, off pressor support, on broad spectrum IV antibiotics -UA negative Status: Resolved (5) Lactic acidosis: -as noted above Status: Acute (6) Upper GI bleed: -with additional history, dark color of emesis likely cola vs. chocolate ice cream -bilious drainage from OGT currently; FOBT negative -continue to monitor H/H closely -AC on hold -INR-2.80; goal is 2-3 -Surgery consult by Dr. Romo appreciated -on PPI Status: Resolved (7) Antiphospholipid antibody syndrome: -on AC with coumadin which is currently on hold due to concern for upper GI bleed Status: Chronic (8) Pulmonary embolism: -known prior hx of PE -on AC with coumadin Status: Chronic Qualifiers: Acute cor pulmonale presence: unspecified Chronicity: chronic Pulmonary embolism type: unspecified Qualified Code(s): I27.82 - Chronic pulmonary embolism (9) DVT (deep venous thrombosis): -s/p IVC filter Status: Chronic Qualifiers: Affected thrombotic vein of extremity: unspecified vein of extremity Chronicity: chronic DVT location: lower extremity Laterality: unspecified laterality Qualified Code(s): I82.509 - Chronic embolism and thrombosis of unspecified deep veins of unspecified lower extremity Additional A&P Information -noted troponin elevation with significant delta; likely type II secondary to septic shock. Echo noted above; telemetry monitoring -hx of tibial artery thrombosis s/p stenting -suspected dementia, likely vascular given prior hx of CVA -WILBERT on CKD stage 3; baseline Cr is around 1.3-1.4; continue to monitor renal function, avoid nephrotoxins, renally dose meds. Renal US with noted bilateral renal cysts, no hydronephrosis. Improving renal function -Chronic thrombocytopenia; platelet count appears to be at baseline -Hypoalbuminemia; received dose of albumin x 3; additional doses if needed -Chronic diastolic CHF; Echo reported above, acute exacerbation with noted edema; on diuresis with caution (monitor BP, renal function) -NPO; may need tube feeds if need for continued ventilation though with noted risk of further aspiration, otherwise ST evaluation post-extubation -GI ppx with PPI -DVT ppx with SCDs -Dispo: home; Trista Burton ([phone]) updated on patient's clinical status -Code status: FULL code -guarded prognosis given hypotension, septic shock, acute respiratory failure Attestations Medical Necessity Statement*: Patient requires hospitalization for continued management of acute respiratory failure, remains on ventilator support with possibility of extubation today, treatment of aspiration pneumonia on IV antibiotics, IV diuresis secondary to acutely decompensated CHF. Time Spent in Patient Care: Greater than 35 minutes (>than 50% of time spent in counselling and/or direct pt care on unit). Critical Care Time: The high probability of a clinically significant, sudden or life threatening deterioration of the patient's [respiratory, neuro] system(s) required my full and direct attention, intervention and personal management. The critical care time is as shown. 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
[2020-06-09] MEDS: bumetanide 0.25 mg/mL SDV 4 mL 1 MG IV ×2 (08:17→21:04)
[2020-06-09] MEDS: erythromycin Op Oint 3.5 gm Tube 1 APPLIC EYE-BOTH ×4 (08:19→21:04)
[2020-06-09] MEDS: levofloxacin-dextrose 5 % 750 MG/150 ML PREMIX 100 MG IV (11:01)
--- NOTE | 2020-06-09 12:01 | PC.SOCIAL ---
IMM Update Pg. 2 of IMM updated with patient's who verbalized understanding.
[2020-06-10] VITALS (32 sets, daily range): BP systolic 94–118; BP diastolic 57–73; PULSE 55–68; RESP 11–21; TEMP 36.3–37.6; O2SAT 93–96
[2020-06-10] MEDS: piperacillin-tazobactam 3.375 GM in sodium chloride 0.9% (plus) 50 ML IV ×3 (00:27→16:28)
[2020-06-10] MEDS: metroNIDAZOLE IV 500 MG/100 ML PREMIX 100 MG IV ×3 (00:27→16:01)
[2020-06-10] MEDS: pantoprazole 40 mg SDV IVP ×2 (03:44→15:32)
[2020-06-10 04:18] LABS: Basophils % 0.8 %; Eosinophils # 0.2 10^3/uL (0.0-0.8); Hematocrit 35.6 % (42.0-52.0); Hemoglobin 11.1 g/dL (11.7-16.6); Lymphocytes # 0.9 10^3/uL (0.8-4.8); Lymphocytes % 16.9 %; Mean Corpuscular HGB Conc 31.2 g/dL (30.0-36.0); Mean Corpuscular Hemoglobin 28.2 pg (28.0-34.0); Mean Corpuscular Volume 90.4 fL (80-94); Mean Platelet Volume 11.5 fL (7.4-10.4); Monocytes # 0.4 10^3/uL (0.2-0.9); Monocytes % 7.9 %; Neutrophils # 3.49 10^3/uL (1.8-7.7); Neutrophils % 68.6 %; Nucleated Red Blood Cells % 0 %; Platelet Count 108 10^3/cmm (130-400); Red Blood Count 3.94 10^6/uL (4.1-5.3); Red Cell Distribution Width 15.4 % (12.1-15.1); White Blood Count 5.1 10^3/uL (4.0-10.0)
[2020-06-10 04:29] LABS: Lactate (Lactic Acid level) 1.2 mmol/L (0.5-2.2)
[2020-06-10 04:34] LABS: INR 2.71 (0.8-1.2)
[2020-06-10 04:45] LABS: Alanine Aminotransferase 18 U/L (0-41); Albumin Level 2.8 g/dL (3.5-5.2); Alkaline Phosphatase 45 IU/L (40-130); Anion Gap 17.3 (5-19); Aspartate Amino Transferase 32 U/L (0-40); Blood Urea Nitrogen 26 mg/dL (8-23); Calcium 8.3 mg/dL (8.5-10.5); Carbon Dioxide 22 mmol/L (22-29); Chloride 110 mmol/L (98-107); Glomerular Filtration Rate 43.7 mL/min (90-130); Glucose 81 mg/dL (65-115); Osmolality Calculated 306 mOsm/kg (285-295); Potassium 3.3 mmol/L (3.5-5.1); Sodium 146 mmol/L (136-145); Total Bilirubin 0.7 mg/dL (0.15-1.2); Total Protein 5.8 g/dL (6.6-8.7)
[2020-06-10 05:39] LABS: ABG PCO2 37.4 mmHg (35-45); ABG PH Result 7.42 (7.35-7.45); Base Excess ABG 0.1 mmol/L (-2.0-2.0); Blood Gas Allen Test Pos; Blood Gas Operator Identificat JB; Blood Gas Sample Site Radial, right; Blood Gas Sample Type Arterial; HCO3 ABG 24.3 mmol/L (22-26); Oxygen Device VENT; PO2 ABG 82.8 mmHg (80.0-100.0)
--- NOTE | 2020-06-10 06:00 | XRR_ITS ---
PROCEDURE INFORMATION: Exam: XR Chest, 1 View Exam date and time: 06/10/2020 4:38 AM Age: 64 years old Clinical indication: Device placement; Ett placement (vent status); Additional info: On vent support TECHNIQUE: Imaging protocol: XR of the chest Views: 1 view. COMPARISON: CR XR chest 1V portable [id number] 06/08/2020 9:58 AM FINDINGS: The heart size is normal. An endotracheal tube is seen with the tip above the bessy. A nasogastric tube is seen with the tip in the stomach. The lungs show bilateral scattered infiltrates showing no change. No pneumothorax is present. XR/XR chest 1V portable [id number] IMPRESSION: No significant change is seen.
--- NOTE | 2020-06-10 08:09 | P.PN_ITS ---
Subjective Subjective: Interval history: Remains on vent support though off sedation, weaning trial today, had 1000 mL urine output overnight, afebrile, hemodynamically stable, improved Hg and platelet count, stable renal function. ABG appropriate, CXR unchanged. Failed weaning trial earlier this morning, inconsistently responsive in terms of following commands. Medications: Reviewed: Yes Medication Review Details: Active Medications Generic Name Dose Route Start Last Admin Trade Name Freq PRN Reason Stop Dose Admin Acetaminophen 650 mg 06/04/20 17:48 06/05/20 11:00 Acetaminophen 65 0 Mg Supp ID 650 mg Q6H PRN Administration FEVER Bumetanide 1 mg 06/08/20 09:00 06/09/20 21:04 Bumetanide 0.25 Mg/Ml Sdv 4 Ml IV 1 mg Q12H JOCELIN Administration Erythromycin 1 applic 06/06/20 13:00 06/09/20 21:04 Erythromycin Op Oint 3.5 Gm Tube EYE-BOTH 1 applic QID JOCELIN Administration Protocol Piperacillin Sod/T azobactam 50 mls @ 12.5 mls /hr 06/05/20 01:00 06/10/20 08:01 Sod 3.375 gm/ So dium Chloride IV Infused Q8H JOCELIN Infusion Protocol Metronidazole 500 mg in 100 mls @ 100 mls/hr 06/07/20 09:00 06/10/20 01:27 Flagyl Iv IV Infused Q8H JOCELIN Infusion Protocol Levetiracetam 500 mg/ Sodium 105 mls @ 420 mls /hr 06/07/20 20:00 06/10/20 08:01 Chloride IV 420 mls/hr Q12H JOCELIN Administration Levofloxacin/Dextr ose 750 mg in 150 mls @ 100 mls/hr 06/09/20 10:30 06/09/20 12:35 Levaquin-D5w IV Infused Q24H JOCELIN Infusion Protocol Metoprolol Tartrat e 12.5 mg 06/06/20 18:00 06/09/20 17:54 Metoprolol Tartr ate 25 Mg Tablet PO Not Given BID JOCELIN Ondansetron HCl 4 mg 06/04/20 17:48 Ondansetron 2 Mg /Ml Sdv 2 Ml IVP Q6H PRN NAUSEA AND VOMITI NG Pantoprazole Sodiu m 40 mg 06/08/20 03:30 06/10/20 03:44 Pantoprazole 40 Mg Sdv IVP 40 mg Q12H JOCELIN Administration No Known Allergies Allergy (Verified 10/27/19 14:02) Vitals/I&O/Wt Last Vital Signs Temp 98.6 F 06/10/20 03:24 Pulse 57 L 06/10/20 06:00 Resp 12 06/10/20 07:43 BP 99/61 06/10/20 06:00 Pulse Ox 95 06/10/20 06:00 06/09/20 06/10/20 06/10/20 22:59 06:59 14:59 Intake Total 255 / 660 100 / 760 50 / 50 Output Total 950 / 2050 500 / 2550 Balance -695 / -1390 -400 / -1790 50 / 50 Weight last 48 hrs Weight 106.594 kg Weight 112.491 kg Physical Exam Const: COMMON NORMALS: no acute distress GENERAL APPEARANCE: ill appearing and patient mechanically ventilated ORIENTATION/CONSCIOUSNESS: Yes awake OTHER: -remains off sedation, improved response to verbal and tactile stimulation though inconsistent HENMT: COMMON NORMALS: normocephalic and atraumatic HEAD & SCALP: normocephalic and atraumatic OTHER: -orally intubated, OGT in place, bilious drainage Eye: COMMON NORMALS: conjunctivae normal and no scleral icterus CONJUNCTIVA: Yes conjunctivae normal PUPIL: Yes Pinpoint pupils bilaterally OTHER: -dried purulent drainage on R eyelashes; minimal exudate on L; both improved Neck/C-Spine: COMMON NORMALS: full ROM GENERAL: Yes normal visual inspection and Yes trachea midline Resp: COMMON NORMALS: normal respiratory effort, No retractions and No use of accessory muscles EFFORT & INSPECTION: Yes symmetric chest movement and No tachypneic AUSCULTATION: diminished lung sounds OTHER: -on vent support (30%/500/6); ETT-26 cm @ lip -consistently breathing over vent Cardio: COMMON NORMALS: regular rate, regular rhythm, S1 normal heart sound present, S2 normal heart sound present and No murmurs present (Cardio) RATE: regular rate RHYTHM: regular rhythm HEART SOUNDS: S1 normal heart sound present and S2 normal heart sound present GI: COMMON NORMALS: Normal to inspection, nondistended, normoactive bowel sounds present and Soft to palpation PALPATION: Yes Soft to palpation : BLADDER/KIDNEY EXAM: Yes catheter in place Extremity: COMMON NORMALS: no pedal edema NARRATIVE EXTREMITY EXAM: -edema of bilateral UEs, improving Neuro: COMMON NORMALS: moves all extremities, no focal motor deficits, no sensory deficits noted and gait normal OTHER: -sedated -better able to follow commands including opening his eyes, grasping when asked to. Seems to fatigue quite easily Psych: COMMON NORMALS: mental status grossly normal, Normal thought process present, cooperative, normal affect and speech normal SPEECH: Yes normal speech THOUGHT PROCESS: Normal thought process present OTHER: -intubated Skin: COMMON NORMALS: no jaundice and no petechiae NARRATIVE SKIN EXAM: - deep tissue injury on L hip area GENERAL SKIN EXAM: mottling (particularly on thighs, upper chest) NAILS: yellow and thickened Urinary Catheter Management^: Domínguez: Cath Placed During This Visit: yes Reason for Continuing Indwelling Catheter: Accurate Measurement of Urinary Output in Critically Ill Patients Urinary Catheter Date of Insertion: 06/04/20 Urinary Catheter Time of Insertion: 16:26 Data : 06/10/20 03:48 06/10/20 03:48 A&P Assessment and plan (1) Acute respiratory failure with hypoxia: -Intubated in the ER secondary to noted altered mental status and respiratory distress -Remains on ventilator support, sedation turned off earlier this AM but continues to be minimally responsive; suspect that this is due to renal impairment and decreased renal clearance of fentanyl. -so far weaning process has been impeded by continued sedation even with discontinuation of meds; with improved responsiveness, weaning trial attempted, failed twice yesterday, will try again today -Daily ABG, chest x-ray while on vent support -imaging unchanged today -Given reported preceding emesis there is continued concern for aspiration pneumonia -Continue broad-spectrum IV antibiotic coverage with Zosyn, Levaquin, Flagyl; no vanc due to thrombocytopenia. -Rapid COVID-19 testing negative; off isolation precautions -sputum culture-normal cindy (prelim), gram stain rare GPC -blood cultures prelim negative -Echo: EF=55%, G1DD, normal PSP, no RWMA -no leukocytosis, afebrile x > 24 hrs Status: Acute (2) Acute encephalopathy: -unclear if this is just infection related but has noted prolonged sedation even after discontinuation of sedatives for about 36 hours, unable to follow commands or do anything purposeful; does have cough and gag reflex when suctioned. Potential that this is related to anoxia given unknown period of de creased responsiveness and aspiration prior to admission -Keep off sedation as much as possible; so far has been off x > 72 hrs -Treatment of infection as already outlined -No overt neurological deficits or seizure-like activity though difficult to fully evaluate for this given minimal response from patient. On empiric antiepileptic medications in case there is a seizure-like component to this -No clear electrolyte imbalances and noted renal impairment is unlikely to contribute to this level of encephalopathy -TSH, ammonia, vitamin B12, folate within normal limits. UDS negative, EtOH negative -Imaging has been negative x2 -If continued prolonged sedation will require formal neuro evaluation -Prior baseline per is intermittent confusion due to underlying dementia but otherwise alert and oriented Status: Acute (3) Aspiration pneumonitis: -as noted above Status: Acute (4) Septic shock: -septic shock as evidenced by lactic acidosis, fever, hypotension, tachycardia, tachypnea, WILBERT, acute respiratory failure. Resolved with hemodynamic stability, afebrile x > 24 hrs, improving renal function -concern for hypovolemia given emesis; resolved -off IVF, off pressor support, on broad spectrum IV antibiotics -UA negative Status: Resolved (5) Lactic acidosis: -as noted above Status: Acute (6) Upper GI bleed: -with additional history, dark color of emesis likely cola vs. chocolate ice cream -bilious drainage from OGT currently; FOBT negative -continue to monitor H/H closely -AC on hold -INR-2.71; goal is 2-3 -Surgery consult by Dr. Romo appreciated -on PPI Status: Resolved (7) Antiphospholipid antibody syndrome: -on AC with coumadin which is currently on hold due to concern for upper GI bleed Status: Chronic (8) Pulmonary embolism: -known prior hx of PE -on AC with coumadin Status: Chronic Qualifiers: Acute cor pulmonale presence: unspecified Chronicity: chronic Pulmonary embolism type: unspecified Qualified Code(s): I27.82 - Chronic pulmon daria embolism (9) DVT (deep venous thrombosis): -s/p IVC filter Status: Chronic Qualifiers: Affected thrombotic vein of extremity: unspecified vein of extremity Chronicity: chronic DVT location: lower extremity Laterality: unspecified laterality Qualified Code(s): I82.509 - Chronic embolism and thrombosis of unspecified deep veins of unspecified lower extremity Additional A&P Information -noted troponin elevation with significant delta; likely type II secondary to septic shock. Echo noted above; telemetry monitoring -hx of tibial artery thrombosis s/p stenting -suspected dementia, likely vascular given prior hx of CVA -WILBERT on CKD stage 3; baseline Cr is around 1.3-1.4; continue to monitor renal function, avoid nephrotoxins, renally dose meds. Renal US with noted bilateral renal cysts, no hydronephrosis. Improving renal function -Chronic thrombocytopenia; platelet count appears to be at baseline -Hypoalbuminemia; received dose of albumin x 3; additional doses if needed -Chronic diastolic CHF; Echo reported above, acute exacerbation with noted edema; on diuresis with caution (monitor BP, renal function) -bilateral conjunctivitis; on erthromycin ointment (day 5/) -NPO; may need tube feeds if need for continued ventilation though with noted risk of further aspiration particularly with high volume of secretions and coughing episodes, otherwise ST evaluation post-extubation -GI ppx with PPI -DVT ppx with SCDs -Dispo: pending improvement in clinical status; may need to consider LTAC if prolonged weaning needed -Code status: FULL code -guarded prognosis given acute respiratory failure and vent dependence Attestations Medical Necessity Statement*: Patient requires hospitalization for continued management of acute respiratory failure on vent support, IV antibiotics, IV di uretics. Time Spent in Patient Care: Greater than 35 minutes (>than 50% of time spent in counselling and/or direct pt care on unit) . Critical Care Time: The high probability of a clinically significant, sudden or life threatening deterioration of the patient's (cardiovascular, neuro, respiratory) system(s) required my full and direct attention, intervention and personal management. The critical care time is as shown. This time is in addition to time spent performing any reported procedures but includes the following: [x] Data and vital sign review and interpretation [x] Patient assessment, examination and intervention [x] Documentation [x] Medication orders and management Critical Care Time (min): 25 Coding Level of Care Code Acute Order Taker for [facility] Fwd Exam Comprehensive Diagnoses Acute respiratory failure with hypoxia J96.01 Acute encephalopathy G93.40 Aspiration pneumonitis J69.0 Septic shock A41.9; R65.21 Lactic acidosis E87.2 Upper GI bleed K92.2 Antiphospholipid antibody syndrome D68.61 Pulmonary embolism I27.82 Acute cor pulmonale presence: unspecified Chronicity: chronic Pulmonary embolism type: unspecified DVT (deep venous thrombosis) I82.509 Affected thrombotic vein of extremity: unspecified vein of extremity Chronicity: chronic DVT location: lower extremity Laterality: unspecified laterality
[2020-06-10] MEDS: bumetanide 0.25 mg/mL SDV 4 mL 1 MG IV ×2 (08:46→20:16)
[2020-06-10] MEDS: metoprolol tartrate 25 mg Tablet 12.5 MG PO ×2 (08:47→17:05)
[2020-06-10] MEDS: erythromycin Op Oint 3.5 gm Tube 1 APPLIC EYE-BOTH ×3 (08:53→16:01)
[2020-06-10] MEDS: levofloxacin-dextrose 5 % 750 MG/150 ML PREMIX 100 MG IV (10:55)
[2020-06-11] VITALS (33 sets, daily range): BP systolic 89–103; BP diastolic 55–71; PULSE 57–75; RESP 10–16; TEMP 36.9–37.1; O2SAT 90–96; BMI 28.8
[2020-06-11] MEDS: metroNIDAZOLE IV 500 MG/100 ML PREMIX 100 MG IV ×2 (01:34→08:50)
[2020-06-11] MEDS: piperacillin-tazobactam 3.375 GM in sodium chloride 0.9% (plus) 50 ML IV ×3 (01:34→16:14)
[2020-06-11 04:41] LABS: Basophils # 0.1 10^3/uL (0.0-0.1); Basophils % 0.7 %; Eosinophils # 0.2 10^3/uL (0.0-0.8); Eosinophils % 2.5 %; Hematocrit 36.4 % (42.0-52.0); Hemoglobin 11.3 g/dL (11.7-16.6); Lymphocytes # 0.9 10^3/uL (0.8-4.8); Lymphocytes % 13.1 %; Mean Corpuscular Hemoglobin 27.9 pg (28.0-34.0); Mean Corpuscular Volume 89.9 fL (80-94); Mean Platelet Volume 11.2 fL (7.4-10.4); Monocytes # 0.4 10^3/uL (0.2-0.9); Monocytes % 5.8 %; Neutrophils # 5.13 10^3/uL (1.8-7.7); Neutrophils % 74.6 %; Nucleated Red Blood Cells % 0 %; Platelet Count 177 10^3/cmm (130-400); Red Blood Count 4.05 10^6/uL (4.1-5.3); Red Cell Distribution Width 15.5 % (12.1-15.1); White Blood Count 6.9 10^3/uL (4.0-10.0)
[2020-06-11] MEDS: pantoprazole 40 mg SDV IVP ×2 (04:41→16:15)
[2020-06-11 04:59] LABS: Anion Gap 17.1 (5-19); Blood Urea Nitrogen 22 mg/dL (8-23); Calcium 8.4 mg/dL (8.5-10.5); Carbon Dioxide 23 mmol/L (22-29); Chloride 105 mmol/L (98-107); Glomerular Filtration Rate 55.6 mL/min (90-130); Glucose 85 mg/dL (65-115); Osmolality Calculated 297 mOsm/kg (285-295); Potassium 3.1 mmol/L (3.5-5.1); Sodium 142 mmol/L (136-145)
--- NOTE | 2020-06-11 06:00 | XRR_ITS ---
PROCEDURE INFORMATION: Exam: XR Chest, 1 View Exam date and time: 06/11/2020 8:33 AM Age: 64 years old Clinical indication: Shortness of breath; Additional info: On vent support TECHNIQUE: Imaging protocol: XR of the chest Views: Frontal portable upright view of the chest. COMPARISON: CR XR chest 1V portable [id number] 06/10/2020 4:27 AM FINDINGS: Tubes, catheters and devices: The endotracheal tube tip is approximately 3 cm above the bessy. EKG leads are present overlying the chest. The feeding tube enters the stomach with the tip in the mid gastric body. Lungs: Improved left basilar pulmonary subsegmenta/partial l atelectasis. The pulmonary vasculature is normal. Pleural space: No definite pleural effusion. No pneumothorax. Heart/Mediastinum: The heart is normal in size and contour. Mediastinum: Stable. Bones/joints: Stable. XR/XR chest 1V portable [id number] IMPRESSION: Improved left basilar pulmonary subsegmenta/partial l atelectasis.
[2020-06-11 08:04] LABS: ABG PCO2 34.2 mmHg (35-45); ABG PH Result 7.47 (7.35-7.45); Arterial Blood Gas Hematocrit 38.6 % (42-52); Base Excess ABG 1.5 mmol/L (-2.0-2.0); Blood Gas Allen Test Pos; Blood Gas Operator Identificat GD; Blood Gas Sample Site Radial, right; Blood Gas Sample Type Arterial; HCO3 ABG 24.8 mmol/L (22-26); Oxygen Device VENT; PO2 ABG 69.6 mmHg (80.0-100.0)
[2020-06-11] MEDS: bumetanide 0.25 mg/mL SDV 4 mL 1 MG IV (08:26)
[2020-06-11] MEDS: metoprolol tartrate 25 mg Tablet 12.5 MG PO ×2 (08:27→17:19)
[2020-06-11] MEDS: erythromycin Op Oint 3.5 gm Tube 1 APPLIC EYE-BOTH ×4 (08:31→21:34)
[2020-06-11] MEDS: sodium chloride 0.9% (100 ml) 100 ML 10 ML (08:37)
--- NOTE | 2020-06-11 09:30 | PC.SOCIAL ---
IMM Updated Page 2 of IMM updated with patient's spouse over the phone. Initialed, dated, and timed and placed back in chart. Copy provided to patient's bedside.
[2020-06-11] MEDS: levofloxacin-dextrose 5 % 750 MG/150 ML PREMIX 100 MG IV (10:23)
--- NOTE | 2020-06-11 10:30 | PM.PN ---
Subjective Subjective: Interval history: Remains on ventilator support, hemodynamically stable, afebrile, had 1150 mL urine output overnight, labs stable with continued improvement in renal function, slight hypokalemia, will replace. Improvement noted on chest x-ray today. Some hypoxia noted on ABG this morning. Responsiveness remains inconsistent though unlike before he is spontaneously opening his eyes. Has remained on pressure support throughout the day. Has not required quite as much suctioning today. Medications: Reviewed: Yes Medication Review Details: Active Medications Generic Name Dose Route Start Last Admin Trade Name Freq PRN Reason Stop Dose Admin Acetaminophen 650 mg 06/04/20 17:48 06/05/20 11:00 Acetaminophen 65 0 Mg Supp [place] 650 mg Q6H PRN Administration FEVER Bumetanide 1 mg 06/08/20 09:00 06/11/20 08:26 Bumetanide 0.25 Mg/Ml Sdv 4 Ml IV 1 mg Q12H JOCELIN Administration Erythromycin 1 applic 06/06/20 13:00 06/11/20 08:31 Erythromycin Op Oint 3.5 Gm Tube EYE-BOTH 1 applic QID JOCELIN Administration Protocol Piperacillin Sod/T azobactam 50 mls @ 12.5 mls /hr 06/05/20 01:00 06/11/20 09:56 Sod 3.375 gm/ So dium Chloride IV 12.5 mls/hr Q8H JOCELIN Administration Protocol Metronidazole 500 mg in 100 mls @ 100 mls/hr 06/07/20 09:00 06/11/20 09:55 Flagyl Iv IV Infused Q8H JOCELIN Infusion Protocol Levetiracetam 500 mg/ Sodium 105 mls @ 420 mls /hr 06/07/20 20:00 06/11/20 08:25 Chloride IV 420 mls/hr Q12H JOCELIN Administration Levofloxacin/Dextr ose 750 mg in 150 mls @ 100 mls/hr 06/09/20 10:30 06/10/20 12:30 Levaquin-D5w IV Infused Q24H JOCELIN Infusion Protocol Metoprolol Tartrat e 12.5 mg 06/06/20 18:00 06/11/20 08:27 Metoprolol Tartr ate 25 Mg Tablet PO 12.5 mg BID JOCELIN Administration Ondansetron HCl 4 mg 06/04/20 17:48 Ondansetron 2 Mg /Ml Sdv 2 Ml IVP Q6H PRN NAUSEA AND VOMITI NG Pantoprazole Sodiu m 40 mg 06/08/20 03:30 06/11/20 04:41 Pantoprazole 40 Mg Sdv IVP 40 mg Q12H JOCELIN Administration No Known Allergies Allergy (Verified 10/27/19 14:02) Vitals/I&O/Wt Last Vital Signs Temp 98.5 F 06/11/20 08:00 Pulse 68 06/11/20 09:00 Resp 10 L 06/11/20 09:57 BP 101/71 06/11/20 09:00 Pulse Ox 93 06/11/20 09:00 06/10/20 06/11/20 06/11/20 22:59 06:59 14:59 Intake Total 220 / 755 205 / 960 200 / 200 Output Total 1250 / 1250 1150 / 2400 350 / 350 Balance -1030 / -495 -945 / -1440 -150 / -150 Weight last 48 hrs Weight 104.598 kg Weight 106.594 kg Physical Exam Const: COMMON NORMALS: no acute distress GENERAL APPEARANCE: ill appearing and patient mechanically ventilated ORIENTATION/CONSCIOUSNESS: Yes awake OTHER: -remains off sedation, improved response to verbal and tactile stimulation though inconsistent HENMT: COMMON NORMALS: normocephalic and atraumatic HEAD & SCALP: normocephalic and atraumatic OTHER: -orally intubated, OGT in place, bilious drainage Eye: COMMON NORMALS: conjunctivae normal and no scleral icterus CONJUNCTIVA: Yes conjunctivae normal PUPIL: Yes Pinpoint pupils bilaterally OTHER: -dried purulent drainage on R eyelashes; minimal exudate on L; both improved Neck/C-Spine: COMMON NORMALS: full ROM GENERAL: Yes normal visual inspection and Yes trachea midline Resp: COMMON NORMALS: normal respiratory effort, No retractions and No use of accessory muscles EFFORT & INSPECTION: Yes symmetric chest movement and No tachypneic AUSCULTATION: diminished lung sounds OTHER: -on vent support (30%/5; pressure support); ETT-26 cm @ lip. Seems to get apneic when respiratory rate drops below 10 -consistently breathing over vent Cardio: COMMON NORMALS: regular rate, regular rhythm, S1 normal heart sound present, S2 normal heart sound present and No murmurs present (Cardio) RATE: regular rate RHYTHM: regular rhythm HEART SOUNDS: S1 normal heart sound present and S2 normal heart sound present GI: COMMON NORMALS: Normal to inspection, nondistended, normoactive bowel sounds present and Soft to palpation PALPATION: Yes Soft to palpation : BLADDER/KIDNEY EXAM: Yes catheter in place Extremity: COMMON NORMALS: no pedal edema NARRATIVE EXTREMITY EXAM: -edema of bilateral UEs, improving Neuro: COMMON NORMALS: moves all extremities, no focal motor deficits, no sensory deficits noted and gait normal OTHER: -sedated -better able to follow commands including opening his eyes, grasping when asked to though inconsistently so. Seems to fatigue quite easily Psych: COMMON NORMALS: mental status grossly normal, Normal thought process present, cooperative, normal affect and speech normal SPEECH: Yes normal speech THOUGHT PROCESS: Normal thought process present OTHER: -intubated Skin: COMMON NORMALS: no jaundice and no petechiae NARRATIVE SKIN EXAM: -deep tissue injury on L hip area GENERAL SKIN EXAM: mottling (particularly on thighs, upper chest) NAILS: yellow and thickened Urinary Catheter Management^: Domínguez: Cath Placed During This Visit: yes Reason for Continuing Indwelling Catheter: Accurate Measurement of Urinary Output in Critically Ill Patients Urinary Catheter Date of Insertion: 06/04/20 Urinary Catheter Time of Insertion: 16:26 Data : 06/11/20 04:22 06/11/20 04:22 Micro: Microbiology 06/05/20 10:40 Blood Culture - Final Blood NO GROWTH AFTER 5 DAYS 06/05/20 10:55 Blood Culture - Final Blood NO GROWTH AFTER 5 DAYS A&P Assessment and plan (1) Acute respiratory failure with hypoxia: -Intubated in the ER secondary to noted altered mental status and respiratory distress -Remains on ventilator support, sedation turned off earlier this AM but continues to be minimally responsive; suspect that this is due to renal impairment and decreased renal clearance of fentanyl. -so far weaning process has been impeded by continued sedation even with discontinuation of meds, inconsistent responsiveness; continue weaning trial today -Daily ABG, chest x-ray while on vent support -imaging improved today -Given reported preceding emesis there is continued concern for aspiration pneumonia -Continue broad-spectrum IV antibiotic coverage with Zosyn, Levaquin, Flagyl; no vanc due to thrombocytopenia. Will begin to de-escalate antibiotic regimen as leukocytosis resolved, no fever x >48 hrs -Rapid COVID-19 testing negative; off isolation precautions -sputum culture-normal cindy, gram stain rare GPC -blood cultures negative -Echo: EF=55%, G1DD, normal PSP, no RWMA Status: Acute (2) Acute encephalopathy: -unclear if this is just infection related but has noted prolonged sedation even after discontinuation of sedatives for about 36 hours, unable to follow commands or do anything purposeful; does have cough and gag reflex when suctioned. Potential that this is related to anoxia given unknown period of decreased responsiveness and aspiration prior to admission -Keep off sedation as much as possible; so far has been off x > 72 hrs -Treatment of infection as already outlined -No overt neurological deficits or seizure-like activity though difficult to fully evaluate for this given minimal response from patient. On empiric antiepileptic medications in case there is a seizure-like component to this -No clear electrolyte imbalances and noted renal impairment is unlikely to contribute to this level of encephalopathy -TSH, ammonia, vitamin B12, folate within normal limits. UDS negative, EtOH negative -Imaging has been negative x2 -If continued prolonged sedation will require formal neuro evaluation -Prior baseline per is intermittent confusion due to underlying dementia but otherwise alert and oriented Status: Acute (3) Aspiration pneumonitis: -as noted above Status: Acute (4) Septic shock: -septic shock as evidenced by lactic acidosis, fever, hypotension, tachycardia, tachypnea, WILBERT, acute respiratory failure. Resolved with hemodynamic stability, afebrile x > 24 hrs, improving renal function -concern for hypovolemia given emesis; resolved -off IVF, off pressor support, on broad spectrum IV antibiotics -UA negative Status: Resolved (5) Lactic acidosis: -as noted above Status: Acute (6) Upper GI bleed: -with additional history, dark color of emesis likely cola vs. chocolate ice cream -bilious drainage from OGT currently; FOBT negative -continue to monitor H/H closely -AC on hold -INR-2.71; goal is 2-3 -Surgery consult by Dr. Romo appreciated -on PPI Status: Resolved (7) Antiphospholipid antibody syndrome: -on AC with coumadin which is currently on hold due to concern for upper GI bleed Status: Chronic (8) Pulmonary embolism: -known prior hx of PE -on AC with coumadin Status: Chronic Qualifiers: Acute cor pulmonale presence: unspecified Chronicity: chronic Pulmonary embolism type: unspecified Qualified Code(s): I27.82 - Chronic pulmonary embolism (9) DVT (deep venous thrombosis): -s/p IVC filter Status: Chronic Qualifiers: Affected thrombotic vein of extremity: unspecified vein of extremity Chronicity: chronic DVT location: lower extremity Laterality: unspecified laterality Qualified Code(s): I82.509 - Chronic embolism and thrombosis of unspecified deep veins of unspecified lower extremity Additional A&P Information -noted troponin elevation with significant delta; likely type II secondary to septic shock. Echo noted above; telemetry monitoring -hx of tibial artery thrombosis s/p stenting -suspected dementia, likely vascular given prior hx of CVA -WILBERT on CKD stage 3; baseline Cr is around 1.3-1.4; continue to monitor renal function, avoid nephrotoxins, renally dose meds. Renal US with noted bilateral renal cysts, no hydronephrosis. Improving renal function, WILBERT resolved -Chronic thrombocytopenia; platelet count appears to be at baseline -Hypoalbuminemia; received dose of albumin x 3; additional doses if needed -Chronic diastolic CHF; Echo reported above, acute exacerbation with noted edema; on diuresis with caution (monitor BP, renal function) -bilateral conjunctivitis; on erthromycin ointment (day 6/7) -NPO; may need tube feeds if need for continued ventilation though with noted risk of further aspiration particularly with high volume of secretions and coughing episodes, otherwise ST evaluation post-extubation -GI ppx with PPI -DVT ppx with SCDs, add lovenox with stable Hg and platelet count -Dispo: pending improvement in clinical status; may need to consider LTAC if prolonged weaning needed -Code status: FULL code -guarded prognosis given acute respiratory failure and vent dependence Attestations Medical Necessity Statement*: Patient requires hospitalization for continued management of acute hypoxic respiratory failure, remains on ventilator support, weaning trial again today, broad-spectrum IV antibiotic therapy. Time Spent in Patient Care: Greater than 35 minutes (>than 50% of time spent in counselling and/or direct pt care on unit). Critical Care Time: The high probability of a clinically significant, sudden or life threatening deterioration of the patient's [cardiovascular, respiratory] system(s) required my full and direct attention, intervention and personal management. The critical care time is as shown. This time is in addition to time spent performing any reported procedures but includes the following: [x] Data and vital sign review and interpretation [x] Patient assessment, examination and intervention [x] Documentation [x] Medication orders and management Critical Care Time (min): 15 Coding Level of Care Code Acute Family Service Assistant for [place] Fwd Exam Comprehensive Diagnoses Acute respiratory failure with hypoxia J96.01 Acute encephalopathy G93.40 Aspiration pneumonitis J69.0 Septic shock A41.9; R65.21 Lactic acidosis E87.2 Upper GI bleed K92.2 Antiphospholipid antibody syndrome D68.61 Pulmonary embolism I27.82 Acute cor pulmonale presence: unspecified Chronicity: chronic Pulmonary embolism type: unspecified DVT (deep venous thrombosis) I82.509 Affected thrombotic vein of extremity: unspecified vein of extremity Chronicity: chronic DVT location: lower extremity Laterality: unspecified laterality
[2020-06-11] MEDS: enoxaparin 40 mg/0.4 mL Syringe SUBCUT (11:36)
[2020-06-11] MEDS: lidocaine 1% 5 ML in potassium chloride premix 100 ML 25 ML IV (11:36)
[2020-06-12] VITALS (33 sets, daily range): BP systolic 89–136; BP diastolic 57–77; PULSE 54–81; RESP 10–25; TEMP 36.9–37.2; O2SAT 91–97
[2020-06-12] MEDS: piperacillin-tazobactam 3.375 GM in sodium chloride 0.9% (plus) 50 ML IV ×3 (01:22→16:59)
[2020-06-12 03:33] LABS: Basophils # 0.1 10^3/uL (0.0-0.1); Basophils % 0.6 %; Eosinophils # 0.1 10^3/uL (0.0-0.8); Eosinophils % 1.4 %; Hematocrit 36.9 % (42.0-52.0); Hemoglobin 11.4 g/dL (11.7-16.6); Lymphocytes # 0.8 10^3/uL (0.8-4.8); Lymphocytes % 9.9 %; Mean Corpuscular HGB Conc 30.9 g/dL (30.0-36.0); Mean Corpuscular Hemoglobin 28.2 pg (28.0-34.0); Mean Corpuscular Volume 91.3 fL (80-94); Mean Platelet Volume 11.4 fL (7.4-10.4); Monocytes # 0.4 10^3/uL (0.2-0.9); Monocytes % 4.6 %; Neutrophils # 6.77 10^3/uL (1.8-7.7); Neutrophils % 81.6 %; Nucleated Red Blood Cells % 0 %; Platelet Count 212 10^3/cmm (130-400); Red Blood Count 4.04 10^6/uL (4.1-5.3); Red Cell Distribution Width 15.8 % (12.1-15.1); White Blood Count 8.3 10^3/uL (4.0-10.0)
[2020-06-12] MEDS: pantoprazole 40 mg SDV IVP ×2 (03:33→15:25)
[2020-06-12 03:56] LABS: Blood Urea Nitrogen 25 mg/dL (8-23); Calcium 8.6 mg/dL (8.5-10.5); Carbon Dioxide 24 mmol/L (22-29); Chloride 110 mmol/L (98-107); Glomerular Filtration Rate 47.1 mL/min (90-130); Glucose 84 mg/dL (65-115); Osmolality Calculated 306 mOsm/kg (285-295); Sodium 146 mmol/L (136-145)
[2020-06-12 03:58] LABS: Anion Gap 15.6 (5-19); Potassium 3.6 mmol/L (3.5-5.1)
[2020-06-12 05:38] LABS: ABG PCO2 38.6 mmHg (35-45); ABG PH Result 7.42 (7.35-7.45); Arterial Blood Gas Hematocrit 33.8 % (42-52); Base Excess ABG 0.8 mmol/L (-2.0-2.0); Blood Gas Sample Site Brachial, right; Blood Gas Sample Type Arterial; HCO3 ABG 25.2 mmol/L (22-26); Oxygen Device VENT; PO2 ABG 73.1 mmHg (80.0-100.0)
[2020-06-12] MEDS: sodium chloride 0.9% (100 ml) 100 ML 10 ML (05:54)
--- NOTE | 2020-06-12 08:26 | PM.PN ---
Subjective Subjective: Interval history: Had 500 mL urine output overnight, remains on vent, pressure support setting. Slight increase in Cr today, otherwise stable labs. Improved oxygenation on AM ABG. Remains off sedation. Required a fair bit of suctioning of secretions overnight. Has continued to require a fair amount of suctioning today as well, responsiveness continues to be fairly inconsistent. able to visit this afternoon, agreeable to LTAC once this is arranged, updated on patient's clinical status at bedside. Medications: Reviewed: Yes Medication Review Details: Active Medications Generic Name Dose Route Start Last Admin Trade Name Freq PRN Reason Stop Dose Admin Acetaminophen 650 mg 06/04/20 17:48 06/05/20 11:00 Acetaminophen 65 0 Mg Supp [place] 650 mg Q6H PRN Administration FEVER Bumetanide 1 mg 06/12/20 09:00 Bumetanide 0.25 Mg/Ml Sdv 4 Ml IV DAILY JOCELIN Enoxaparin Sodium 40 mg 06/11/20 11:00 06/11/20 11:36 Enoxaparin 40 Mg /0.4 Ml Syringe SUBCUT 40 mg Q24H JOCELIN Administration Erythromycin 1 applic 06/06/20 13:00 06/11/20 21:34 Erythromycin Op Oint 3.5 Gm Tube EYE-BOTH 1 applic QID JOCELIN Administration Protocol Piperacillin Sod/T azobactam 50 mls @ 12.5 mls /hr 06/05/20 01:00 06/12/20 01:22 Sod 3.375 gm/ So dium Chloride IV 12.5 mls/hr Q8H JOCELIN Administration Protocol Metronidazole 500 mg in 100 mls @ 100 mls/hr 06/07/20 09:00 06/11/20 09:55 Flagyl Iv IV Infused Q8H JOCELIN Infusion Protocol Levetiracetam 500 mg/ Sodium 105 mls @ 420 mls /hr 06/07/20 20:00 06/11/20 20:59 Chloride IV Infused Q12H JOCELIN Infusion Levofloxacin/Dextr ose 750 mg in 150 mls @ 100 mls/hr 06/09/20 10:30 06/11/20 10:23 Levaquin-D5w IV 100 mls/hr Q24H JOCELIN Administration Protocol Metoprolol Tartrat e 12.5 mg 06/06/20 18:00 06/11/20 17:19 Metoprolol Tartr ate 25 Mg Tablet PO 12.5 mg BID JOCELIN Administration Ondansetron HCl 4 mg 06/04/20 17:48 Ondansetron 2 Mg /Ml Sdv 2 Ml IVP Q6H PRN NAUSEA AND VOMITI NG Pantoprazole Sodiu m 40 mg 06/08/20 03:30 06/12/20 03:33 Pantoprazole 40 Mg Sdv IVP 40 mg Q12H JOCELIN Administration No Known Allergies Allergy (Verified 10/27/19 14:02) Vitals/I&O/Wt Last Vital Signs Temp 99.0 F 06/12/20 08:00 Pulse 67 06/12/20 08:00 Resp 25 H 06/12/20 08:08 BP 110/65 06/12/20 08:00 Pulse Ox 93 06/12/20 08:00 06/11/20 06/12/20 06/12/20 22:59 06:59 14:59 Intake Total 255 / 610 Output Total 650 / 1000 250 / 1250 Balance -395 / -390 -250 / -640 Weight last 48 hrs Weight 106.282 kg Weight 104.598 kg Physical Exam Const: COMMON NORMALS: no acute distress GENERAL APPEARANCE: ill appearing and patient mechanically ventilated ORIENTATION/CONSCIOUSNESS: Yes awake OTHER: -remains off sedation, improved response to verbal and tactile stimulation though inconsistent HENMT: COMMON NORMALS: normocephalic and atraumatic HEAD & SCALP: normocephalic and atraumatic OTHER: -orally intubated, OGT in place, bilious drainage Eye: COMMON NORMALS: conjunctivae normal and no scleral icterus CONJUNCTIVA: Yes conjunctivae normal PUPIL: Yes Pinpoint pupils bilaterally OTHER: -dried purulent drainage on R eyelashes; minimal exudate on L; both resolved Neck/C-Spine: COMMON NORMALS: full ROM GENERAL: Yes normal visual inspection and Yes trachea midline Resp: COMMON NORMALS: normal respiratory effort, No retractions and No use of accessory muscles EFFORT & INSPECTION: Yes symmetric chest movement and No tachypneic AUSCULTATION: diminished lung sounds OTHER: -on vent support (30%/5; pressure support); ETT-26 cm @ lip. Seems to get apneic when respiratory rate drops below 10 -consistently breathing over vent Cardio: COMMON NORMALS: regular rate, regular rhythm, S1 normal heart sound present, S2 normal heart sound present and No murmurs present (Cardio) RATE: regular rate RHYTHM: regular rhythm HEART SOUNDS: S1 normal heart sound present and S2 normal heart sound present GI: COMMON NORMALS: Normal to inspection, nondistended, normoactive bowel sounds present and Soft to palpation PALPATION: Yes Soft to palpation : BLADDER/KIDNEY EXAM: Yes catheter in place Extremity: COMMON NORMALS: no pedal edema NARRATIVE EXTREMITY EXAM: -edema of bilateral UEs, improving Neuro: COMMON NORMALS: moves all extremities, no focal motor deficits, no sensory deficits noted and gait normal OTHER: -sedated -better able to follow commands including opening his eyes, grasping when asked to though inconsistently so. Seems to fatigue quite easily Psych: COMMON NORMALS: mental status grossly normal, Normal thought process present, cooperative, normal affect and speech normal SPEECH: Yes normal speech THOUGHT PROCESS: Normal thought process present OTHER: -intubated Skin: COMMON NORMALS: no jaundice and no petechiae NARRATIVE SKIN EXAM: -deep tissue injury on L hip area; open blister on surface of wound GENERAL SKIN EXAM: mottling (particularly on thighs, upper chest) NAILS: yellow and thickened Urinary Catheter Management^: Domínguez: Cath Placed During This Visit: yes Reason for Continuing Indwelling Catheter: Accurate Measurement of Urinary Output in Critically Ill Patients Urinary Catheter Date of Insertion: 06/04/20 Urinary Catheter Time of Insertion: 16:26 Data : 06/12/20 03:07 06/12/20 03:07 A&P Assessment and plan (1) Acute respiratory failure with hypoxia: -Intubated in the ER secondary to noted altered mental status and respiratory distress -Remains on ventilator support, sedation turned off earlier this AM but continues to be minimally responsive; suspect that this is due to renal impairment and decreased renal clearance of fentanyl. -so far weaning process has been impeded by continued sedation even with discontinuation of meds, inconsistent responsiveness; continue weaning trial today -Daily ABG, chest x-ray while on vent support -imaging improved today -Given reported preceding emesis there is continued concern for aspiration pneumonia -Continue broad-spectrum IV antibiotic coverage with Zosyn, Levaquin, Flagyl; no vanc due to thrombocytopenia. Will begin to de-escalate antibiotic regimen as leukocytosis resolved, no fever x >48 hrs -Rapid COVID-19 testing negative; off isolation precautions -sputum culture-normal cindy, gram stain rare GPC -blood cultures negative -Echo: EF=55%, G1DD, normal PSP, no RWMA Status: Acute (2) Acute encephalopathy: -unclear if this is just infection related but has noted prolonged sedation even after discontinuation of sedatives for about 36 hours, unable to follow commands or do anything purposeful; does have cough and gag reflex when suctioned. Potential that this is related to anoxia given unknown period of decreased responsiveness and aspiration prior to admission -Keep off sedation as much as possible; so far has been off x > 72 hrs -Treatment of infection as already outlined -No overt neurological deficits or seizure-like activity though difficult to fully evaluate for this given minimal response from patient. On empiric antiepileptic medications in case there is a seizure-like component to this -No clear electrolyte imbalances and noted renal impairment is unlikely to contribute to this level of encephalopathy -TSH, ammonia, vitamin B12, folate within normal limits. UDS negative, EtOH negative -Imaging has been negative x2 -If continued prolonged sedation will require formal neuro evaluation -Prior baseline per is intermittent confusion due to underlying dementia but otherwise alert and oriented Status: Acute (3) Aspiration pneumonitis: -as noted above Status: Acute (4) Septic shock: -septic shock as evidenced by lactic acidosis, fever, hypotension, tachycardia, tachypnea, WILBERT, acute respiratory failure. Resolved with hemodynamic stability, afebrile x > 24 hrs, improving renal function -concern for hypovolemia given emesis; resolved -off IVF, off pressor support, on broad spectrum IV antibiotics -UA negative Status: Resolved (5) Lactic acidosis: -as noted above Status: Acute (6) Upper GI bleed: -with additional history, dark color of emesis likely cola vs. chocolate ice cream -bilious drainage from OGT currently; FOBT negative -continue to monitor H/H closely -AC on hold -INR-2.71; goal is 2-3 -Surgery consult by Dr. Romo appreciated -on PPI Status: Resolved (7) Antiphospholipid antibody syndrome: -on AC with coumadin which is currently on hold due to concern for upper GI bleed Status: Chronic (8) Pulmonary embolism: -known prior hx of PE -on AC with coumadin Status: Chronic Qualifiers: Acute cor pulmonale presence: unspecified Chronicity: chronic Pulmonary embolism type: unspecified Qualified Code(s): I27.82 - Chronic pulmonary embolism (9) DVT (deep venous thrombosis): -s/p IVC filter Status: Chronic Qualifiers: Affected thrombotic vein of extremity: unspecified vein of extremity Chronicity: chronic DVT location: lower extremity Laterality: unspecified laterality Qualified Code(s): I82.509 - Chronic embolism and thrombosis of unspecified deep veins of unspecified lower extremity Additional A&P Information -noted troponin elevation with significant delta; likely type II secondary to septic shock. Echo noted above; telemetry monitoring -hx of tibial artery thrombosis s/p stenting -suspected dementia, likely vascular given prior hx of CVA -WILBERT on CKD stage 3; baseline Cr is around 1.3-1.4; continue to monitor renal function, avoid nephrotoxins, renally dose meds. Renal US with noted bilateral renal cysts, no hydronephrosis. Improving renal function, WILBERT resolved -Chronic thrombocytopenia; platelet count appears to be at baseline -Hypoalbuminemia; received dose of albumin x 3; additional doses if needed -Chronic diastolic CHF; Echo reported above, acute exacerbation with noted edema; on diuresis with caution (monitor BP, renal function) -bilateral conjunctivitis; on erthromycin ointment (day 01/17) -NPO; may need tube feeds if need for continued ventilation though with noted risk of further aspiration particularly with high volume of secretions and coughing episodes, otherwise ST evaluation post-extubation -GI ppx with PPI -DVT ppx with SCDs, add lovenox with stable Hg and platelet count -Dispo: pending improvement in clinical status; pending LTAC due to need for prolonged weaning needed. Otherwise may need tracheostomy -Code status: FULL code - Trista Spencer updated at bedside -guarded prognosis given acute respiratory failure and vent dependence Attestations Medical Necessity Statement*: Patient requires hospitalization for continued management of acute respiratory failure, remains on vent support, ongoing weaning, treatment of aspiration pneumonia. Time Spent in Patient Care: Greater than 35 minutes (>than 50% of time spent in counselling and/or direct pt care on unit). Critical Care Time: The high probability of a clinically significant, sudden or life threatening deterioration of the patient's [cardiovascular, respiratory] system(s) required my full and direct attention, intervention and personal management. The critical care time is as shown. This time is in addition to time spent performing any reported procedures but includes the following: [x] Data and vital sign review and interpretation [x] Patient assessment, examination and intervention [x] Documentation [x] Medication orders and management Critical Care Time (min): 25 Coding Level of Care Code Acute Awning Frame Maker for [place] Fwd Exam Comprehensive Diagnoses Acute respiratory failure with hypoxia J96.01 Acute encephalopathy G93.40 Aspiration pneumonitis J69.0 Septic shock A41.9; R65.21 Lactic acidosis E87.2 Upper GI bleed K92.2 Antiphospholipid antibody syndrome D68.61 Pulmonary embolism I27.82 Acute cor pulmonale presence: unspecified Chronicity: chronic Pulmonary embolism type: unspecified DVT (deep venous thrombosis) I82.509 Affected thrombotic vein of extremity: unspecified vein of extremity Chronicity: chronic DVT location: lower extremity Laterality: unspecified laterality
[2020-06-12] MEDS: erythromycin Op Oint 3.5 gm Tube 1 APPLIC EYE-BOTH ×4 (08:41→21:00)
--- NOTE | 2020-06-12 09:30 | PC.CHAP ---
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 furniture duster visit [] Patient/Family/Request visit [] Outpatient visit [] Follow-up visit [] Physician referral [] Code/Alert [] Routine visit [] Staff referral [] Actively dying [] Patient sleeping [] Family support [] [] Out of room [] Palliative care [] [] Receiving care in room [] Pre-surgical visit [] Trauma [] Long length of stay [] ICU visit [] Other: Relational/Emotional Strength [] Patient feels connected with others/family/visitors/staff [] Distress [] Loneliness/isolation [] Abandonment Spirituality of Patient [] Person of Gaviota [] Attends Evangelical of their [place] [] Believes in Prayer [] Reads Bible or Nondenominational materials [] There are Spiritual issues to be addressed Vegetable Tester Interventions [x] Prayer [] Active listening [] Non-anxious presence [] Spiritual/emotional support [] Crisis/trauma care [] Spiritual counseling [] Bereavement support [] Provided bereavement packet [] Provided Bible/devotional materials [] Provided toy/stuffed animal, coloring book to patient or family member [] Provided Communion [] Anointing/[place] [] Salvation [x] Completed spiritual assessment [] Other: Impact on Illness or Injury [] Angry [] Fearful [] Anxious [] Often cries [] Exhaustion [] Unable to work [] Unable to attend anglican [] Unable to walk/stand [] Unable to read [] Unable to drive [] Unable to eat/drink [] Unable to sleep [] Unable to be with family [] Patient intubated [] Other: Summary Time spent with patient
--- NOTE | 2020-06-12 09:32 | PC.NURSE ---
Rounding patient resting comfortably in bed. currently on ventilator on 30%Fio2. Vital signs WNL. OG hooked to wall LIS with green gastric contents being removed. bilateral soft wrist restraints in place for patient safety. calderon catheter in place and draining. bilateral +2 pedal pulses found by palpation by nurse. heel protectors put on patient. nurse has suctions patient ET tube. patient also has increased oral secretions that have been suctioned with yanker. Yellow thick secretions noted by nurse. patient able to squeeze both of nurses hands. patient able to open eyes upon command.
--- NOTE | 2020-06-12 10:49 | PC.NURSE ---
Left hip Wound Upon assessment with , blister has busted open. small amount of drainage noted on the vu under patient. patietn currently left side laying. verbal order from to leave wound open as long as wound looks clean.
[2020-06-12] MEDS: levofloxacin-dextrose 5 % 750 MG/150 ML PREMIX 100 MG IV (10:53)
[2020-06-12] MEDS: enoxaparin 40 mg/0.4 mL Syringe SUBCUT (10:54)
--- NOTE | 2020-06-12 17:04 | PC.NURSE ---
right sided movement patient moving right leg quiet often. patient also making facial grimacing. patient shook head if asked when in pain. call to and informed of finding. nurse informed by that she would place orders. patient has open wound on that side.
[2020-06-12] MEDS: morphine 4 mg/mL SDV 1 mL 2 MG IVP (17:36)
[2020-06-13] VITALS (23 sets, daily range): BP systolic 90–113; BP diastolic 62–71; PULSE 56–79; RESP 10–18; TEMP 36.7–37; O2SAT 90–99
[2020-06-13] MEDS: piperacillin-tazobactam 3.375 GM in sodium chloride 0.9% (plus) 50 ML IV ×2 (00:02→08:57)
[2020-06-13] MEDS: pantoprazole 40 mg SDV IVP (03:15)
--- NOTE | 2020-06-13 03:57 | XRR_ITS ---
PROCEDURE INFORMATION: Exam: XR Chest, 1 View Exam date and time: 06/13/2020 5:42 AM Age: 64 years old Clinical indication: Other non-vascualr catheter or device placement; Og tube; Additional info: Og tube placement TECHNIQUE: Imaging protocol: XR of the chest Views: 1 view. COMPARISON: CR XR chest 1V portable [id number] 06/11/2020 8:21 AM FINDINGS: Tubes, catheters and devices: An orogastric tube is present with the tip projecting in the stomach in satisfactory position. An endotracheal tube is present with its tip 2.5 cm above the bessy. Lungs: There is subsegmental atelectasis in the right perihilar region and left base. This has improved when compared to the previous study. No new infiltrates are seen. Pleural space: Unremarkable. No pleural effusion. No pneumothorax. Heart/Mediastinum: Unremarkable. No cardiomegaly. Bones/joints: Unremarkable. XR/XR chest 1V portable [id number] IMPRESSION: 1. The orogastric tube projects in the stomach. 2. Improving right perihilar and left basilar atelectasis.
[2020-06-13 05:02] LABS: Basophils # 0.1 10^3/uL (0.0-0.1); Basophils % 0.6 %; Eosinophils # 0.2 10^3/uL (0.0-0.8); Eosinophils % 2.3 %; Hematocrit 35.2 % (42.0-52.0); Hemoglobin 10.7 g/dL (11.7-16.6); Lymphocytes # 1.3 10^3/uL (0.8-4.8); Lymphocytes % 14.6 %; Mean Corpuscular HGB Conc 30.4 g/dL (30.0-36.0); Mean Corpuscular Hemoglobin 28.2 pg (28.0-34.0); Mean Corpuscular Volume 92.6 fL (80-94); Mean Platelet Volume 11.4 fL (7.4-10.4); Monocytes # 0.3 10^3/uL (0.2-0.9); Monocytes % 3.6 %; Neutrophils # 6.87 10^3/uL (1.8-7.7); Neutrophils % 77.3 %; Nucleated Red Blood Cells % 0 %; Platelet Count 227 10^3/cmm (130-400); Red Cell Distribution Width 16.1 % (12.1-15.1); White Blood Count 8.9 10^3/uL (4.0-10.0)
[2020-06-13 05:04] LABS: ABG PH Result 7.41 (7.35-7.45); Arterial Blood Gas Hematocrit 38.1 % (42-52); Base Excess ABG -1.2 mmol/L (-2.0-2.0); Blood Gas Sample Site Brachial, right; Blood Gas Sample Type Arterial; HCO3 ABG 23.2 mmol/L (22-26); Oxygen Device VENT; PO2 ABG 72.3 mmHg (80.0-100.0)
[2020-06-13 05:22] LABS: Anion Gap 19.3 (5-19); Blood Urea Nitrogen 21 mg/dL (8-23); Calcium 8.9 mg/dL (8.5-10.5); Carbon Dioxide 22 mmol/L (22-29); Chloride 109 mmol/L (98-107); Glucose 79 mg/dL (65-115); Osmolality Calculated 306 mOsm/kg (285-295); Potassium 3.3 mmol/L (3.5-5.1); Sodium 147 mmol/L (136-145)
--- NOTE | 2020-06-13 08:15 | PM.DCS ---
Discharge Providers Date of Admission: 06/04/20 17:28 Date of Discharge: June 13, 2020 Attending Provider at Admission: Jose Olivarez Attending Provider at Discharge: Geno Rodgers MD Consults: None Primary Care Provider: Kei Silva Diagnoses at Discharge Discharge Diagnosis (1) Acute respiratory failure with hypoxia: Status: Acute Permanent problem details: -Intubated in the ER secondary to noted altered mental status and respiratory distress; today is day 9 of vent dependence -Remains on ventilator support, sedation turned off earlier this AM but continues to be minimally responsive; suspect that this is due to renal impairment and decreased renal clearance of fentanyl. -so far weaning process has been impeded by continued sedation even with discontinuation of meds, inconsistent responsiveness; continue weaning trial today -Daily ABG, chest x-ray while on vent support -imaging improved today -Given reported preceding emesis there is continued concern for aspiration pneumonia -Continue broad-spectrum IV antibiotic coverage with Zosyn, Levaquin, Flagyl; no vanc due to thrombocytopenia. Will begin to de-escalate antibiotic regimen as leukocytosis resolved, no fever x >48 hrs -Rapid COVID-19 testing negative; off isolation precautions -sputum culture-normal cindy, gram stain rare GPC -blood cultures negative -Echo: EF=55%, G1DD, normal PSP, no RWMA (2) Acute encephalopathy: Status: Acute Permanent problem details: -unclear if this is just infection related but has noted prolonged sedation even after discontinuation of sedatives for about 36 hours, unable to follow commands or do anything purposeful; does have cough and gag reflex when suctioned. Potential that this is related to anoxia given unknown period of decreased responsiveness and aspiration prior to admission -Keep off sedation as much as possible; so far has been off x > 72 hrs -Treatment of infection as already outlined -No overt neurological deficits or seizure-like activity though difficult to fully evaluate for this given minimal response from patient. On empiric antiepileptic medications in case there is a seizure-like component to this -No clear electrolyte imbalances and noted renal impairment is unlikely to contribute to this level of encephalopathy -TSH, ammonia, vitamin B12, folate within normal limits. UDS negative, EtOH negative -Imaging has been negative x2 -If continued prolonged sedation will require formal neuro evaluation -Prior baseline per is intermittent confusion due to underlying dementia but otherwise alert and oriented (3) Aspiration pneumonitis: Status: Acute Permanent problem details: -as noted above (4) Septic shock: Status: Resolved Permanent problem details: -septic shock as evidenced by lactic acidosis, fever, hypotension, tachycardia, tachypnea, WILBERT, acute respiratory failure. Resolved with hemodynamic stability, afebrile x > 24 hrs, improving renal function -concern for hypovolemia given emesis; resolved -off IVF, off pressor support, on broad spectrum IV antibiotics -UA negative (5) Lactic acidosis: Status: Acute (6) Upper GI bleed: Status: Resolved Permanent problem details: -with additional history, dark color of emesis likely cola vs. chocolate ice cream -bilious drainage from OGT currently; FOBT negative -continue to monitor H/H closely -AC on hold -INR-2.71; goal is 2-3 -Surgery consult by Dr. Romo appreciated -on PPI (7) Antiphospholipid antibody syndrome: Status: Chronic Permanent problem details: -on AC with coumadin which is currently on hold due to concern for upper GI bleed and current critical illness (8) Pulmonary embolism: Status: Chronic Permanent problem details: -known prior hx of PE -on AC with coumadin Qualifiers: Acute cor pulmonale presence: unspecified Chronicity: chronic Pulmonary embolism type: unspecified Qualified Code(s): I27.82 - Chronic pulmonary embolism (9) DVT (deep venous thrombosis): Status: Chronic Permanent problem details: -s/p IVC filter Qualifiers: Affected thrombotic vein of extremity: unspecified vein of extremity Chronicity: chronic DVT location: lower extremity Laterality: unspecified laterality Qualified Code(s): I82.509 - Chronic embolism and thrombosis of unspecified deep veins of unspecified lower extremity Other Information Additional DC diagnoses/information: -noted troponin elevation with significant delta; likely type II secondary to septic shock. Echo noted above; telemetry monitoring -hx of tibial artery thrombosis s/p stenting -suspected dementia, likely vascular given prior hx of CVA -WILBERT on CKD stage 3; baseline Cr is around 1.3-1.4; continue to monitor renal function, avoid nephrotoxins, renally dose meds. Renal US with noted bilateral renal cysts, no hydronephrosis. Improving renal function, WILBERT resolved -Chronic thrombocytopenia; platelet count appears to be at baseline -Hypoalbuminemia; received dose of albumin x 3; additional doses if needed -Chronic diastolic CHF; Echo reported above, acute exacerbation with noted edema; better compensated, diuresis on hold -bilateral conjunctivitis; s/p 7-day course of erthromycin ointment Reason for Visit Reason for Visit: AMS Hospital Course Hospital Course Patient was admitted to the ICU after having required intubation in the ER secondary to noted respiratory distress and decreased level of responsiveness. He had been found to have dried emesis on him per his and had been down for an unknown period of time. He required sedation for brief period of time, approximately 24 to 36 hours, was on fentanyl consistently at 25 mcg/hr. This was then weaned off in an attempt to see if patient would awaken with plan to start weaning trial. In the interim patient was covered with broad-spectrum IV antibiotics due to concern for aspiration pneumonia. He continued to have intermittent fever so IV antibiotic spectrum was broadened with addition of Flagyl and Levaquin, had already been on Zosyn. Unfortunately, even with discontinuation of sedation for about 48 hours, his level of responsiveness remained quite impaired. After about 72 hours, he started to follow some commands though inconsistently and has remained this way to this date. He has done well on the IV antibiotic regimen, with noted resolution of fever, hemodynamic stability and resolved leukocytosis. He did develop mild acute diastolic CHF exacerbation for which he was started on IV diuresis. Prior to this he had been receiving some IV fluid hydration. He has diuresed appropriately and renal function is at his baseline of Cr-1.3-1.4. Hemoglobin has remained stable and he has not required transfusion of any blood products. He has been on anticoagulation with Coumadin at home which was held during his hospital stay. He had been noted to have some thrombocytopenia so was off anticoagulation therapy. With stability in his cell lines he is on Lovenox for DVT prophylaxis. He has had a large volume of secretions consistently and due to already known aspiration event has been not being on tube feeding due to high risk of repeated aspiration. Weaning trials have been ongoing for approximately 6 days, he is currently on pressure support setting on vent but due to inconsistency with level of responsiveness we have been unable to extubate and he has failed weaning trials with noted significant apneic episodes whenever respiratory rate drops below 10. I am currently unable to explain this phenomena. I did have some clinical suspicion that perhaps seizure-like activity was contributing to his slow recovery neurologically so he has been on empiric Keppra. I am unsure that this has made much difference overall but will continue this at this time. I suspect that patient will require longer term weaning process versus consideration of tracheostomy if unable to wean successfully off the ventilator. I have discussed this extensively with his and recommended LTAC for this process to begin, she is agreeable to this at this time. I am currently unsure of patient's prognosis but would speculate that it is quite guarded given prolonged ventilation period but perhaps with more time he may have some degree of recovery. Physical Exam Const: COMMON NORMALS: no acute distress GENERAL APPEARANCE: ill appearing and patient mechanically ventilated ORIENTATION/CONSCIOUSNESS: Yes awake OTHER: -remains off sedation, improved response to verbal and tactile stimulation though inconsistent HENMT: COMMON NORMALS: normocephalic and atraumatic HEAD & SCALP: normocephalic and atraumatic OTHER: -orally intubated, OGT in place, bilious drainage Eye: COMMON NORMALS: conjunctivae normal and no scleral icterus CONJUNCTIVA: Yes conjunctivae normal PUPIL: Yes Pinpoint pupils bilaterally OTHER: -dried purulent drainage on R eyelashes; minimal exudate on L; both resolved Neck/C-Spine: COMMON NORMALS: full ROM GENERAL: Yes normal visual inspection and Yes trachea midline Resp: COMMON NORMALS: normal respiratory effort, No retractions and No use of accessory muscles EFFORT & INSPECTION: Yes symmetric chest movement and No tachypneic AUSCULTATION: diminished lung sounds OTHER: -on vent support (30%/5; pressure support); ETT-26 cm @ lip. Seems to get apneic when respiratory rate drops below 10 -consistently breathing over vent Cardio: COMMON NORMALS: regular rate, regular rhythm, S1 normal heart sound present, S2 normal heart sound present and No murmurs present (Cardio) RATE: regular rate RHYTHM: regular rhythm HEART SOUNDS: S1 normal heart sound present and S2 normal heart sound present GI: COMMON NORMALS: Normal to inspection, nondistended, normoactive bowel sounds present and Soft to palpation PALPATION: Yes Soft to palpation : BLADDER/KIDNEY EXAM: Yes catheter in place Extremity: COMMON NORMALS: no pedal edema NARRATIVE EXTREMITY EXAM: -edema of bilateral UEs, improving Neuro: COMMON NORMALS: moves all extremities, no focal motor deficits, no sensory deficits noted and gait normal OTHER: -sedated -better able to follow commands including opening his eyes, grasping when asked to though inconsistently so. Seems to fatigue quite easily Psych: COMMON NORMALS: mental status grossly normal, Normal thought process present, cooperative, normal affect and speech normal SPEECH: Yes normal speech THOUGHT PROCESS: Normal thought process present OTHER: -intubated Skin: COMMON NORMALS: no jaundice and no petechiae NARRATIVE SKIN EXAM: -deep tissue injury on L hip area; open blister on surface of wound GENERAL SKIN EXAM: mottling (particularly on thighs, upper chest) NAILS: yellow and thickened Urinary Catheter Management^: Domínguez: Cath Placed During This Visit: yes Reason for Continuing Indwelling Catheter: Accurate Measurement of Urinary Output in Critically Ill Patients Urinary Catheter Date of Insertion: 06/04/20 Urinary Catheter Time of Insertion: 16:26 Discharge Data Data Completed and Pending: Completed Studies During Hospitalization Category Date Time Status CT angio chest w abd pel w con Stat Cat Scan 06/04/20 15:[address] head wo con* 7 0450 Routine Cat Scan 06/06/20 21:[address] head wo con* 7 0450 Stat Cat Scan 06/04/20 14:47 Completed XR chest 1V gabby ble [id number] Routine Exams 06/06/20 06:00 Completed XR chest 1V gabby ble [id number] Routine Exams 06/07/20 06:00 Completed XR chest 1V gabby ble [id number] Routine Exams 06/08/20 09:00 Completed XR chest 1V gabby ble [id number] Routine Exams 06/10/20 06:00 Completed XR chest 1V gabby ble [id number] Routine Exams 06/11/20 06:00 Completed XR chest 1V gabby ble [id number] Stat Exams 06/04/20 14:45 Completed XR chest 1V gabby ble [id number] Stat Exams 06/04/20 16:06 Completed XR chest 1V gabby ble [id number] Stat Exams 06/04/20 16:41 Completed CV echo complete* [id number] Urgent Ultrasound 06/05/20 09:02 Completed US renal BI* [id number] Routine Ultrasound 06/06/20 19:11 Completed Pending at discharge Category Date Time Status XR chest 1V gabby ble [id number] Routine Exams 06/13/20 03:57 Taken Labs from last 24 hours 06/13/20 06/13/20 06/13/20 04:54 04:54 04:54 WBC 8.9 RBC 3.80 L Hgb 10.7 L Hct 35.2 L MCV 92.6 MCH 28.2 MCHC 30.4 RDW 16.1 H Plt Count 227 MPV 11.4 H Neut % (Auto) 77.3 Lymph % (Auto) 14.6 [place]ven % (Auto) 3.6 Eos % (Auto) 2.3 Baso % (Auto) 0.6 Neut # (Auto) 6.87 Lymph # (Auto) 1.3 Craven # (Auto) 0.3 Eos # (Auto) 0.2 Baso # (Auto) 0.1 Nucleated RBC % (a uto) 0 Nucleated RBCs # 0.0 Specimen Type Arterial Sample Site Brachial, right ABG pH 7.41 ABG pCO2 37.0 ABG pO2 72.3 L ABG HCO3 23.2 ABG Base Excess -1.2 Edwin Test N/a Hematocrit 38.1 L O2 Delivery Device Vent FiO2 35.0 PEEP 5.0 Power Wheelchair Mechanic ID Hinja Sodium 147 H Potassium 3.3 L Chloride 109 H Carbon Dioxide 22 Anion Gap 19.3 H BUN 21 Creatinine 1.4 H GFR Calculation 51.0 L Glucose 79 Calculated Osmolal ity 306 H Calcium 8.9 Vitals: Last Vital Signs Temp 98.0 F 06/13/20 00:00 Pulse 60 06/13/20 06:00 Resp 18 06/13/20 07:54 BP 106/64 06/13/20 06:00 Pulse Ox 98 06/13/20 06:00 Discharge Plan Discharge Patient Disposition: Xfer LTC Condition: Stable Prescriptions: Discontinued mirtazapine 7.5 mg Tablet 7.5 mg PO BEDTIME RF: 0 warfarin 5 mg Tablet See Rx Instructions .ROUTE .COMPLEX RF: 0 olanzapine 20 mg Tablet 10 mg PO BEDTIME RF: 0 Discharge Orders: Discharge Order (Routine); Ordered 06/13/20 Ordered By: Geno Rodgers Referrals: Kei Silva [Primary Care Provider] - Discharge Attestations Time Spent in Discharge Care*: greater than 30 min Specific Discharge Activities: educating and/or supporting family/caregiver ( Trista Burton), discussing with lining caser/social workers/dc planners, documenting/other paperwork and evaluating patient/reviewing data Status at Discharge: Functional status at discharge: bed bound Overall status at discharge: patient is not back to baseline Quality Metrics Clinical Quality Measures During this hospital stay, did patient experience: None Coding Level of Care Code Acute Ase 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
[2020-06-13] MEDS: potassium chloride ER 20 mEq Tablet 40 MEQ PO (08:56)
[2020-06-13] MEDS: metoprolol tartrate 25 mg Tablet 12.5 MG PO (08:57)
--- NOTE | 2020-06-13 09:38 | PC.CHAP ---
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 fire alarm repairer visit [] Patient/Family/Request visit [] Outpatient visit [] Follow-up visit [] Physician referral [] Code/Alert [] Routine visit [] Staff referral [] Actively dying [] Patient sleeping [] Family support [] [] Out of room [] Palliative care [] [] Receiving care in room [] Pre-surgical visit [] Trauma [] Long length of stay [] ICU visit [] Other: Relational/Emotional Strength [] Patient feels connected with others/family/visitors/staff [] Distress [] Loneliness/isolation [] Abandonment Spirituality of Patient [] Person of [place] [] Attends Mu-Ism of their [place] [] Believes in Prayer [] Reads Bible or Anabaptist materials [] There are Spiritual issues to be addressed 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 [employer] Interventions [x] Prayer [] Active listening [] Non-anxious presence [] Spiritual/emotional support [] Crisis/trauma care [] Spiritual counseling [] Bereavement support [] Provided bereavement packet [] Provided Bible/devotional materials [] Provided toy/stuffed animal, coloring book to patient or family member [] Provided Communion [] Anointing/[place] [] Salvation [x] Completed spiritual assessment [] Other: Impact on Illness or Injury [] Angry [] Fearful [] Anxious [] Often cries [] Exhaustion [] Unable to work [] Unable to attend adventism [] Unable to walk/stand [] Unable to read [] Unable to drive [] Unable to eat/drink [] Unable to sleep [] Unable to be with family [] Patient intubated [] Other: Summary Time spent with patient
[2020-06-13] MEDS: enoxaparin 40 mg/0.4 mL Syringe SUBCUT (10:18)
[2020-06-13] MEDS: levofloxacin-dextrose 5 % 750 MG/150 ML PREMIX 100 MG IV (10:18)
--- NOTE | 2020-06-13 11:46 | PC.SOCIAL ---
IMM Updated. Updated pt's , via phone, on Pg 2 IMM. No questions voiced. Provided a copy to pt. Signed, dated, & timed copy in chart.
== END 2020-06-13 15:45 | DRG 870 ==
LOC: ER 17:31 → ICU 17:36
PROVIDERS: Admitting Provider Hospitalist; Emergency Provider Emergency Medicine; Family Provider Internal Medicine; PCP Internal Medicine; Visit Provider Family Medicine
DX: A41.9 Sepsis, unspecified organism (principal); R65.21 Severe sepsis with septic shock; J96.01 Acute respiratory failure with hypoxia; J69.0 Pneumonitis due to inhalation of food and vomit; I50.33 Acute on chronic diastolic (congestive) heart failure; D69.3 Immune thrombocytopenic purpura; D68.61 Antiphospholipid syndrome; K92.2 Gastrointestinal hemorrhage, unspecified; N17.9 Acute kidney failure, unspecified; E87.2 Acidosis; G93.40 Encephalopathy, unspecified; E78.5 Hyperlipidemia, unspecified; F01.50 Vascular dementia, unspecified severity, without behavioral disturbance, psychotic disturbance, mood disturbance, and anxiety; F32.9 Major depressive disorder, single episode, unspecified; Z86.718 Personal history of other venous thrombosis and embolism; Z86.711 Personal history of pulmonary embolism; I73.9 Peripheral vascular disease, unspecified; Z95.820 Peripheral vascular angioplasty status with implants and grafts; Z95.828 Presence of other vascular implants and grafts; Z79.01 Long term (current) use of anticoagulants; N18.30 Chronic kidney disease, stage 3 unspecified; E86.1 Hypovolemia; I95.9 Hypotension, unspecified; E88.09 Other disorders of plasma-protein metabolism, not elsewhere classified; Z86.73 Personal history of transient ischemic attack (TIA), and cerebral infarction without residual deficits
CPT/HCPCS: 12345; 31500; 36415; 36600; 51702; 70450; 71045; 71275; 74177; 76770; 80048; 80053; 80306; 80307; 81001; 82009; 82140; 82550; 82607; 82746; 82803; 83605; 83690; 83735; 84443; 84484; 85007; 85014; 85018; 85025; 85610; 85730; 86850; 86900; 86920; 87040; 87070; 87205; 87426; 93005; 93306; 94002; 94003; 94799; 96372; 96375; 99283; A4570; C9113; E0352; J0330; J0696; J1650; J1953; J1956; J2060; J2270; J2370; J2405; J2543; J2704; J3010; J3475; J3480; J3490; J7030; J7050; P9041; Q9967; S0030